=== PATIENT | female | born 1930 | race Caucasian/White ===

== ENCOUNTER 2017-04-26 09:35 | Inpatient (IN) | payer MEDICARE, OTHER ==
[~2017-04-26] VITALS: Ht 149.9 cm; Wt 40.9 kg
[2017-04-26 09:38] VITALS: Ht 149.9 cm; Wt 40.9 kg
[2017-04-26] MEDS ORDERED: SOD CHLORIDE 0.9% 500 ML IV STA (10:03)
[2017-04-26 10:12] LABS: BASOPHILS % 0.2 % (0.0-2.0); HEMATOCRIT 33.2 % (37.0-47.0); HEMOGLOBIN 10.5 g/dl (12.0-16.0); LYMPHOCYTES # 1.9 10^3/ul (0.8-2.9); MEAN CORPUSCULAR HEMOGLOBIN 27.9 pg (29.0-33.0); MEAN CORPUSCULAR HGB CONC 31.6 g/dl (32.0-37.0); MEAN CORPUSCULAR VOLUME 88.3 fl (82.0-101.0); MEAN PLATELET VOLUME 10.8 fl (7.4-10.4); MONOCYTE # 0.4 10^3/ul (0.3-0.9); MONOCYTES % 6.8 % (0.0-11.0); NEUTROPHIL # 4.1 10^3/ul (1.6-7.5); NEUTROPHILS % 63.4 % (39.0-77.0); PLATELET COUNT 178 10^3/UL (140-415); RED BLOOD COUNT 3.76 10^6/ul (4.20-5.40); RED CELL DISTRIBUTION WIDTH 14.6 % (11.5-14.5); WHITE BLOOD COUNT 6.5 10^3/ul (4.8-10.8)
[2017-04-26 10:23] LABS: ALBUMIN 3.7 g/dl (3.3-4.9); ALBUMIN/GLOBULIN RATIO 1.19; BILIRUBIN,INDIRECT 0.2 mg/dl (0-1.1); BILIRUBIN,TOTAL 0.2 mg/dl (0.2-1.3); CALCIUM 9.1 mg/dl (8.4-10.2); CREATININE 0.85 mg/dl (0.44-1.00); POTASSIUM 4.8 mmol/L (3.5-5.1); TOTAL PROTEIN 6.8 g/dl (6.1-8.1)
[2017-04-26 10:33] LABS: ADD UMIC NO; UR ASCORBIC ACID 20 mg/dL (NEGATIVE); UR BILIRUBIN (Dip) NEGATIVE (NEGATIVE); UR BLOOD (Dip) NEGATIVE (NEGATIVE); UR CLARITY CLEAR (CLEAR); UR COLOR STRAW (YELLOW); UR GLUCOSE (Dip) NEGATIVE (NEGATIVE); UR KETONES (Dip) TRACE mg/dL (NEGATIVE); UR LEUKOCYTE ESTERASE (Dip) NEGATIVE Leu/ul (NEGATIVE); UR NITRITE (Dip) NEGATIVE (NEGATIVE); UR SPECIFIC GRAVITY (Dip) 1.011 (1.003-1.030); UR TOTAL PROTEIN (Dip) NEGATIVE (NEGATIVE); UR UROBILINOGEN (Dip) 1+ mg/dL (NEGATIVE)
[2017-04-26] MEDS ORDERED: IOHEXOL 300MG/ML 150 ML BTL ONE (10:37)
[2017-04-26] MEDS ORDERED: SOD CHLORIDE 0.9% 100 ML ONE ×2 (10:37→22:19)
--- NOTE | 2017-04-26 11:46 | RADRPT ---
PROCEDURE: CT abdomen and pelvis with contrast. CLINICAL INDICATION: abdominal pain TECHNIQUE: CT scan of the abdomen and pelvis with contrast was performed on [facility] . The patient was scanned after administration of 90 cc of Omnipaque-300 intravenous contrast. Sagittal and coronal reformatted images were obtained from the axial source images. One or more of the following dose reduction techniques were used: - Automated exposure control. - Adjustment of the mA and/or kV according to patient size. - Use of iterative reconstruction technique. DLP 476.4 mGycm. CTDIvol 9.8 mGy COMPARISON: None. FINDINGS: There is a small to moderate layering left effusion with elevation of the left hemidiaphragm. There is a trace amount of right pleural fluid is present. The heart is mildly enlarged. There is compr essive collapse of the visualized portion of the left lower lobe from pleural fluid and elevated hem idiaphragm. Coronary artery calcifications are seen in the heart. There is hepatomegaly of the liver with no focal lesion or biliary ductal dilatation. The gallbladd er is not seen, and the portal vein is intact without thrombus. The spleen is mildly enlarged. Rounded calcific densities are seen in the area of the splenic artery consistent with splenic artery aneurysms that appear thrombosed including of 14 mm superior focus a nd a 15 mm inferior focus. The adrenal glands are within normal limits without mass. The kidneys e nhance symmetrically bilaterally without hydronephrosis or perinephric stranding. The pancreas is unremarkable without focal lesion or surrounding inflammatory changes. Motion limits fine detail of the bowel. There is laxity of the anterior abdominal wall with pannus formation and there is extension of the small and large bowel anteriorly over the pubic symphysis. There is a fecal filled colon present without evidence of bowel obstruction or visible focal bowel i nflammation. The appendix is not seen. There is no free air or free fluid. There are no enlarged lymph nodes. Diffuse aortic atherosclerosis is seen. There is generalized osteopenia and diffuse degenerative di sease seen involving the lumbar spine. 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 There is loss of the proximal right femur cortex. Numerous vascular calcifications are seen in the uterus which otherwise unremarkable. There is no a dnexal mass. RPTAT: AA IMPRESSION: Cardiomegaly and bilateral pleural effusions are seen slightly larger on the left and there is also elevation of the left hemidiaphragm and this results in collapse of the left lower lobe. Fecal filled colon without obstruction. Hepatosplenomegaly. 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 Right total hip arthroplasty with proximal femoral awais. RPTAT: AA .Karla Ramos MD, Date Time Electronically viewed and signed by .Karla Ramos MD, MD on 04/26/2017 11:46 .J/
[2017-04-26] MEDS ORDERED: CEFEPIME 2GM/50 ML (PMX) 50 ML IVPB STA (12:47)
--- NOTE | 2017-04-26 12:47 | ERA ---
ER Documentation Chief Complaint Date/Time DATE: 04/26/17 TIME: 12:39 Chief Complaint bib family for ap x 3 days , sob and fever HPI This is an 87-year-old female with severe Parkinson's disease leaving her bedridden. The patient is here because she has had 3 days of watery diarrhea. She also has lack of appetite for the past 3-4 days. No fever. The patient has a chronic cough but is nonproductive and mild. Patient has no nausea vomiting no complaints of abdominal pain. The daughter states that she has had some fluid buildup in her lungs in the past. ROS All systems reviewed and are negative except as per history of present illness. Allergies Allergies: Coded Allergies: No Known Allergy (Unverified , 04/19/14) PMhx/Soc History of Surgery: No Anesthesia Reaction: No Hx Neurological Disorder: No Hx Respiratory Disorders: No Hx Cardiac Disorders: Yes (htn) Hx Psychiatric Problems: Yes Hx Miscellaneous Medical Probl: Yes (DEMENTIA,PARKINSONS, dm, arthritis) Hx Alcohol Use: No Hx Substance Use: No Hx Tobacco Use: No Smoking Status: Never smoker FmHx Family History: No coronary disease Physical Exam Vitals Vital Signs Date Time Temp Pulse Resp B/P Pulse Ox O2 Delivery O2 Flow Rate FiO2 04/26/17 10:00 88 18 165/79 96 Nasal Cannula 2.0 04/26/17 09:38 99.7 97 20 161/100 97 Physical Exam Const: [Well-developed, well-nourished] Head: [Atraumatic, normocephalic] Eyes: [Normal Conjunctiva, PERRLA, EOMI, normal sclera, no nystagmus] ENT: [Normal External Ears, Nose and Mouth, moist mucus membranes.] Neck: [Full range of motion. No meningismus, no lymphadenopathy.] Resp: [No increased work of breathing wheezing rhonchi or rales but there is decreased breath sounds at bilateral bases left greater than right] Cardio: [Regular rate and rhythm, no murmurs, S1 S2 present] Abd: [Soft, non tender x 4, non distended. Normal bowel sounds, no guarding or rebound, no pulsitile abdominal masses or bruits] Skin: [No petechiae or rashes, no ecchymosis , no maculopapular rash] Back: [No midline or flank tenderness] Ext: [No cyanosis, or edema, FROM x 4, normal inspection, neurovascularly intact x 4] Neur: [Awake and alert, bilateral hand contractures due to Parkinson's with resting tremors bilaterally STR 5/5 x 4, sensation intact x 4, no focal findings] Psych: Unable to assess patient relatively nonverbal Result Diagram: 04/26/17 0946 04/26/17 0946 Results 24 hrs Laboratory Tests Test 04/26/17 09:46 04/26/17 10:15 White Blood Count 6.510^3/ul Red Blood Count 3.7610^6/ul Hemoglobin 10.5g/dl Hematocrit 33.2% Mean Corpuscular Volume 88.3fl Mean Corpuscular Hemoglobin 27.9pg Mean Corpuscular Hemoglobin Concent 31.6g/dl Red Cell Distribution Width 14.6% Platelet Count 04882^3/UL Mean Platelet Volume 10.8fl Neutrophils % 63.4% Lymphocytes % 29.0% Monocytes % 6.8% Eosinophils % 0.0% Basophils % 0.2% Nucleated Red Blood Cells % 0.0/100WBC Neutrophils # 4.110^3/ul Lymphocytes # 1.910^3/ul Monocytes # 0.410^3/ul Eosinophils # 0.010^3/ul Basophils # 0.010^3/ul Nucleated Red Blood Cells # 0.010^3/ul Sodium Level 141mmol/L Potassium Level 4.8mmol/L Chloride Level 95mmol/L Carbon Dioxide Level 31mmol/L Anion Gap 20 Blood Urea Nitrogen 24mg/dl Creatinine 0.85mg/dl Glucose Level 196mg/dl Calcium Level 9.1mg/dl Total Bilirubin 0.2mg/dl Direct Bilirubin 0.00mg/dl Indirect Bilirubin 0.2mg/dl Aspartate Amino Transf (AST/SGOT) 30IU/L Alanine Aminotransferase (ALT/SGPT) 26IU/L Alkaline Phosphatase 57IU/L Total Protein 6.8g/dl Albumin 3.7g/dl Globulin 3.10g/dl Albumin/Globulin Ratio 1.19 Lipase 37U/L Urine Color STRAW Urine Clarity CLEAR Urine pH 7.0 Urine Specific [place] 1.011 Urine Ketones TRACEmg/dL Urine Nitrite NEGATIVEmg/dL Urine Bilirubin NEGATIVEmg/dL Urine Urobilinogen 1+mg/dL Urine Leukocyte Esterase NEGATIVELeu/ul Urine Hemoglobin NEGATIVEmg/dL Urine Glucose NEGATIVEmg/dL Urine Total Protein NEGATIVEmg/dl Current Medications Medications (Trade) Dose Ordered Sig/Jaxon Route PRN Reason Start Time Stop Time Status Last Admin Dose Admin Sodium Chloride (NS) 500 ml @ 500 mls/hr Q1H STAT IV 04/26/17 10:03 04/26/17 11:02 DC 04/26/17 10:25 IV Flush 10 ml 10 ml STK-MED ONCE .ROUTE 04/26/17 10:37 04/26/17 10:38 DC Sodium Chloride (NS) 100 ml @ ud STK-MED ONCE .ROUTE 04/26/17 10:37 04/26/17 10:38 DC Iohexol 150 ml 150 ml STK-MED ONCE .ROUTE 04/26/17 10:37 04/26/17 10:38 DC Cefepime HCl 50 ml @ 100 mls/hr ONCE STAT IVPB 04/26/17 12:47 04/26/17 13:16 DC 04/26/17 13:34 Vancomycin HCl (Vancocin) 250 ml @ 125 mls/hr ONCE ONCE IVPB 04/26/17 13:00 04/26/17 14:59 Morphine Sulfate (morphine) 4 mg ONCE STAT IV 04/26/17 13:23 04/26/17 13:24 DC 04/26/17 13:34 Ondansetron HCl (Zofran Inj) 4 mg ONCE STAT IV 04/26/17 13:23 04/26/17 13:24 DC 04/26/17 13:34 Procedures/MDM PROCEDURE: CT abdomen and pelvis with contrast. CLINICAL INDICATION: abdominal pain TECHNIQUE: CT scan of the abdomen and pelvis with contrast was performed on a multi-slice CT scanner . The patient was scanned after administration of 90 cc of Omnipaque-300 intravenous contrast. Sagittal and coronal reformatted images were obtained from the axial source images. One or more of the following dose reduction techniques were used: - Automated exposure control. - Adjustment of the mA and/or kV according to patient size. - Use of iterative reconstruction technique. DLP 476.4 mGycm. CTDIvol 9.8 mGy COMPARISON: None. FINDINGS: There is a small to moderate layering left effusion with elevation of the left hemidiaphragm. There is a trace amount of right pleural fluid is present. The heart is mildly enlarged. There is compressive collapse of the visualized portion of the left lower lobe from pleural fluid and elevated hemidiaphragm. Coronary artery calcifications are seen in the heart. There is hepatomegaly of the liver with no focal lesion or biliary ductal dilatation. The gallbladder is not seen, and the portal vein is intact without thrombus. The spleen is mildly enlarged. Rounded calcific densities are seen in the area of the splenic artery consistent with splenic artery aneurysms that appear thrombosed including of 14 mm superior focus and a 15 mm inferior focus. The adrenal glands are within normal limits without mass. The kidneys enhance symmetrically bilaterally without hydronephrosis or perinephric stranding. The pancreas is unremarkable without focal lesion or surrounding inflammatory changes. Motion limits fine detail of the bowel. There is laxity of the anterior abdominal wall with pannus formation and there is extension of the small and large bowel anteriorly over the pubic symphysis. There is a fecal filled colon present without evidence of bowel obstruction or visible focal bowel inflammation. The appendix is not seen. There is no free air or free fluid. There are no enlarged lymph nodes. Diffuse aortic atherosclerosis is seen. There is generalized osteopenia and diffuse degenerative disease seen involving the lumbar spine. 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 There is loss of the proximal right femur cortex. Numerous vascular calcifications are seen in the uterus which otherwise unremarkable. There is no adnexal mass. RPTAT: AA IMPRESSION: Cardiomegaly and bilateral pleural effusions are seen slightly larger on the left and there is also elevation of the left hemidiaphragm and this results in collapse of the left lower lobe. Fecal filled colon without obstruction. Hepatosplenomegaly. 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 Right total hip arthroplasty with proximal femoral awais. RPTAT: AA .Karla Ramos MD, MD Date Time Electronically viewed and signed by .Karla Ramos MD, MD on 04/26/2017 11:46 .J/ CC: LÁZARO KILGORE DO Patient's blood work is relatively unremarkable does have an elevated BUN with some prerenal azotemia. Urinalysis is currently pending. We will place a Rhoades. I will admit the patient for 3 days of diarrhea with some signs of prerenal azotemia plus she has bilateral pleural effusions left greater than right which is causing some left lower lobe collapse Blood and urine cultures have been done as well as C. difficile which are all pending Departure Diagnosis: Primary Impression: Bilateral pleural effusion Additional Impressions: Diarrhea Qualified Code: R19.7 - Diarrhea, unspecified type Anorexia Condition: Stable LÁZARO KILGORE DO Apr 26, 2017 12:47
[2017-04-26] MEDS ORDERED: VANCOMYCIN 1 GM (PMX) 250 ML IVPB ONE (13:00)
[2017-04-26] MEDS ORDERED: morphine 4 MG/ML VIAL IV STA (13:23)
[2017-04-26] MEDS ORDERED: ONDANSETRON 4 MG INJ IV STA (13:23)
--- NOTE | 2017-04-26 13:39 | RADRPT ---
PROCEDURE: Chest x-ray CLINICAL INDICATION: Chest pain TECHNIQUE: Chest single view COMPARISON: None FINDINGS: There is moderate cardiomegaly and an sclerotic aortic calcification. Mild CHF is seen. Question s mall left pleural effusion. Right costophrenic angle sharp. Bones are osteopenic. IMPRESSION: 1. Cardiomegaly with mild CHF and probable small left pleural effusion. 2. Atherosclerotic aortic calcification. 3. Osteopenia. 4. Question old right clavicle fracture RPTAT: HH .Keven Bianchi MD, Date Time Electronically viewed and signed by .Keven Bianchi MD, on 04/26/2017 13:39 .W/
[2017-04-26] MEDS ORDERED: ACETAMINOPHEN 325 MG TAB PO PRN (14:00)
[2017-04-26] MEDS ORDERED: ONDANSETRON 4 MG INJ IV PRN (14:00)
[2017-04-26] MEDS ORDERED: MINERAL OIL 133 ML ENEMA PR ONE (15:30)
[2017-04-26] MEDS ORDERED: FUROSEMIDE 40 MG INJ IV ONE (15:30)
--- NOTE | 2017-04-26 15:30 | RADRPT ---
Echocardiogram Report Patient Name: CAREN MIDDLETON Gender: Female Date: 1930 Study Date: 26-Apr-2017 Change Analyst: Walt Reza [facility] Location: 2255 Ref. Physician: HAMZAH NAZARIO Quality: Adequate Procedures: Transthoracic echocardiogram with complete 2D, M-Mode, and doppler examination. Indications: Concern for CHF. 2D/M Mode Doppler Measurement Value Normal Ranges Measurement Value Normal Ranges LVIDd 2D 4.1 3.5 - 5.6 cm AV Peak [place] 1.6 m/sec LVIDs 2D 2.6 2.1 - 4.1 cm AV Peak PG 10.0 mmHg FS 2D 36.5 % LVOT Peak [place] 1.2 m/sec LVPWd 2D 0.9 0.6 - 1.1 cm LVOT Peak PG 6.0 mmHg IVSd 2D 1.0 0.6 - 1.1 cm MV E Peak [place] 1.6 m/sec IVS/LVPW 2D 1.0 MV A Peak [place] 1.1 m/sec AoR Diam 2D 2.8 2.0 - 3.7 cm MV E/A 1.4 LA/Ao 2D 1 0 - 1 MV Decel Time 144 msec EDV 2D 66.4 cm3 MV E/A 1.4 ESV 2D 17.0 cm3 MR Peak PG 110.0 mmHg LA Dimen 2D 3.3 2.3 - 4.0 cm MR Peak [place] 5.2 m/sec TR Peak [place] 4.1 m/sec TR Peak PG 68.0 mmHg RVSP 76.0 mmHg Findings Left Ventricle: Hyperdynamic left ventricular systolic function. Normal left ventricular cavity size. Normal left ventricular wall thickness. Ejection fraction is visually estimated at 70 %. Tissue Doppler/Mitral Doppler indices are consistent with impaired relaxation (Stage I diastolic dysfunction). Right Ventricle: Normal right ventricular systolic function. Mild enlargement of right ventricle. Left Atrium: The left atrium is normal in size. Right Atrium: The right atrium is normal in size. Mitral Valve: Mild mitral leaflet calcification. Mild mitral annular calcification. Mild to moderate mitral valve regurgitation. Aortic Valve: Aortic sclerosis without stenosis. Aortic valve opens normally. Tricuspid Valve: Normal appearance of the tricuspid valve. Estimated peak PA systolic pressure 76 mmHg. There is mild to moderate tricuspid regurgitation. Pulmonic Valve: Pulmonic valve not well visualized. There is trace pulmonic regurgitation. Pericardium: Left pleural effusion seen. Aorta: Normal aortic root. IVC: Dilated IVC with respiratory collapse consistent with elevated right atrial pressure. Conclusions 1.Hyperdynamic left ventricular systolic function. Normal left ventricular cavity size. Normal left ventricular wall thickness. Ejection fraction is visually estimated at 70 %. Tissue Doppler/Mitral Doppler indices are consistent with impaired relaxation (Stage I diastolic dysfunction). 2.Normal right ventricular systolic function. Mild enlargement of right ventricle. 3.Mild mitral leaflet calcification. Mild mitral annular calcification. Mild to moderate mitral valve regurgitation. 4.Aortic sclerosis without stenosis. Aortic valve opens normally. 5.Normal appearance of the tricuspid valve. Estimated peak PA systolic pressure 76 mmHg. There is mild to moderate tricuspid regurgitation. 6.Severe Pulmonary hypertension. 7.Left pleural effusion seen. Electronically Signed By: Pratik Valencia 26-Apr-2017 15:29:22 -0700 Patient Name: CAREN MIDDLETON Study Date: 26-Apr-2017 [id number]
[2017-04-26 15:50] VITALS: BP 148/61; PULSE 102; RESP 20
--- NOTE | 2017-04-26 15:53 | HP ---
Date/Time of Note Date/Time of Note DATE: 04/26/17 TIME: 15:34 Assessment/Plan VTE Prophylaxis VTE Prophylaxis Intervention: LMWH Lines/Catheters IV Catheter Type [facility]from [facility] Saline Lock Assessment/Plan Chief Complaint/Hosp Course This is an 87-year-old female with unclear medical history but reported hypertension and diabetes who presents with a week history of worsening lethargy , abdominal pain and low p.o. intake. Her exam is notable for profound tremors suggestive of Parkinson's disease. Her echocardiogram shows elevated right- sided pressures and severe pulmonary hypertension. 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, thrombosed: - Unclear if this is cause of abd pain or constipation. - Likely are 2/2 hepatosplenomegaly caused by right sided CHF and congestion of portal system - I've consulted Dr Peters from vascular for management Pleural effusion: - Pneumonia and CHF are both on the differential. Malignancy is less likely - Patient stable, no need for urgent tap. Thoracentesis tomorrow by radiology - CT chest with IV contrast pending - Will give a dose of lasix now given marked IVC dilatation on echo - Will also treat with levaquin for community acquired pneumonia given fever Tremors: - Whole body tremors with rigidity and coghweeling highly suggestive of Parksinons disease - Will start Sinemet - Consult neurology tomorrow in AM Severe pulmonary hypertension on TTE: - CT chest w contrast pending. 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 The patient appears to have cognitive impairment and is unable to provide history. History was thus obtained from her daughter. Whom she lives with. The patient is wheelchair- bound at baseline but is alert and interactive normally. Her daughter has noticed her becoming less interactive. She says her mother has complained of pain in her upper back. She also complains of being hot all the time. She is also noticed that the patient has had very little appetite over this time. She has also noticed that the patient has had total body shaking from her head to her hands. PMH/Family/Social Past Medical History Medical History: no pertinent history Past Surgical History Past Surgical Hx: noncontributory Family History Significant Family History: no pertinent family hx Social History Lives at home with her daughter She is wheelchair bound at baseline Alcohol Use: none Smoking Status: Never smoker Drug Use: none Exam/Review of Systems Vital Signs Vitals Vital Signs Date Time Temp Pulse Resp B/P Pulse Ox O2 Delivery O2 Flow Rate FiO2 04/26/17 14:20 100 17 158/70 100 Nasal Cannula 4.0 04/26/17 09:38 99.7 Exam Exam Tmax 100.9 The patient is an elderly female laying in bed appearing somewhat uncomfortable. Alert, faint voice, unable to understand her She has notable tremors from her head to her bilateral arms. Her arms are rigid and contracted to the fingers. She has cogwheeling of her arms bilaterally Her jugular venous pressure is quite elevated to her ear. Her heart sounds are tachycardic and regular. There is no murmur. Her lungs are relatively clear anteriorly. Her abdomen is slightly distended it is soft and nontender. There is no rebound and no guarding. Her legs are without edema and appears somewhat atrophied Laboratory Tests Test 04/26/17 09:46 04/26/17 10:15 White Blood Count 6.510^3/ul Red Blood Count 3.7610^6/ul Hemoglobin 10.5g/dl Hematocrit 33.2% Mean Corpuscular Volume 88.3fl Mean Corpuscular Hemoglobin 27.9pg Mean Corpuscular Hemoglobin Concent 31.6g/dl Red Cell Distribution Width 14.6% Platelet Count 03266^3/UL Mean Platelet Volume 10.8fl Neutrophils % 63.4% Lymphocytes % 29.0% Monocytes % 6.8% Eosinophils % 0.0% Basophils % 0.2% Nucleated Red Blood Cells % 0.0/100WBC Neutrophils # 4.110^3/ul Lymphocytes # 1.910^3/ul Monocytes # 0.410^3/ul Eosinophils # 0.010^3/ul Basophils # 0.010^3/ul Nucleated Red Blood Cells # 0.010^3/ul Sodium Level 141mmol/L Potassium Level 4.8mmol/L Chloride Level 95mmol/L Carbon Dioxide Level 31mmol/L Anion Gap 20 Blood Urea Nitrogen 24mg/dl Creatinine 0.85mg/dl Glucose Level 196mg/dl Calcium Level 9.1mg/dl Total Bilirubin 0.2mg/dl Direct Bilirubin 0.00mg/dl Indirect Bilirubin 0.2mg/dl Aspartate Amino Transf (AST/SGOT) 30IU/L Alanine Aminotransferase (ALT/SGPT) 26IU/L Alkaline Phosphatase 57IU/L B-Type Natriuretic Peptide 1400PG/ML Total Protein 6.8g/dl Albumin 3.7g/dl Globulin 3.10g/dl Albumin/Globulin Ratio 1.19 Lipase 37U/L Urine Color STRAW Urine Clarity CLEAR Urine pH 7.0 Urine Specific [place] 1.011 Urine Ketones TRACEmg/dL Urine Nitrite NEGATIVEmg/dL Urine Bilirubin NEGATIVEmg/dL Urine Urobilinogen 1+mg/dL Urine Leukocyte Esterase NEGATIVELeu/ul Urine Hemoglobin NEGATIVEmg/dL Urine Glucose NEGATIVEmg/dL Urine Total Protein NEGATIVEmg/dl Current Medications Medications (Trade) Dose Ordered Sig/Jaxon Route PRN Reason Start Time Stop Time Status Last Admin Dose Admin Sodium Chloride (NS) 500 ml @ 500 mls/hr Q1H STAT IV 04/26/17 10:03 04/26/17 11:02 DC 04/26/17 10:25 500 MLS/HR IV Flush 10 ml 10 ml STK-MED ONCE .ROUTE 04/26/17 10:37 04/26/17 10:38 DC Sodium Chloride (NS) 100 ml @ ud STK-MED ONCE .ROUTE 04/26/17 10:37 04/26/17 10:38 DC Iohexol 150 ml 150 ml STK-MED ONCE .ROUTE 04/26/17 10:37 04/26/17 10:38 DC Cefepime HCl 50 ml @ 100 mls/hr ONCE STAT IVPB 04/26/17 12:47 04/26/17 15:08 DC 04/26/17 13:34 100 MLS/HR Vancomycin HCl (Vancocin) 250 ml @ 125 mls/hr ONCE ONCE IVPB 04/26/17 13:00 04/26/17 15:08 DC 04/26/17 14:19 125 MLS/HR Morphine Sulfate (morphine) 4 mg ONCE STAT IV 04/26/17 13:23 04/26/17 13:24 DC 04/26/17 13:34 4 MG Ondansetron HCl (Zofran Inj) 4 mg ONCE STAT IV 04/26/17 13:23 04/26/17 13:24 DC 04/26/17 13:34 4 MG Ondansetron HCl (Zofran Inj) 4 mg BRIDGE ORDER PRN IV NAUSEA AND/OR VOMITING 04/26/17 14:00 04/27/17 13:59 Acetaminophen (Tylenol Tab) 650 mg ER BRIDGE PRN PO MILD PAIN/FEVER 04/26/17 14:00 04/27/17 13:59 Furosemide (Lasix) 40 mg ONCE ONCE IV 04/26/17 15:30 04/26/17 15:31 DC 04/26/17 15:16 40 MG Mineral Oil (Fleet Mineral Oil Enema) 133 ml ONCE ONCE ID 04/26/17 15:30 04/26/17 15:31 DC Carbidopa/Levodopa (Sinemet (25/ 100)) 1 tab QID PO 04/26/17 15:30 Polyethylene Glycol (Miralax) 17 gm BID GTB 04/26/17 21:00 Senna 5 ml 5 ml BID PO 04/26/17 21:00 Levofloxacin/ Dextrose 150 ml @ 100 mls/hr Q24H IVPB 04/26/17 16:00 04/26/17 21:00 Levofloxacin/ Dextrose (Levaquin 500mg/ D5W 100 ml (Pmx)) 100 ml @ 100 mls/hr Q24H IVPB 04/27/17 16:00 Labs Result Diagram: 04/26/17 0946 04/26/17 0946 Medications Medications Current Medications Carbidopa/Levodopa (Sinemet (25/ 100)) 1 tab QID PO ; Start 04/26/17 at 15:30 Polyethylene Glycol (Miralax) 17 gm BID GTB ; Start 04/26/17 at 21:00 Senna 5 ml 5 ml BID PO ; Start 04/26/17 at 21:00 Levofloxacin/ Dextrose 150 ml @ 100 mls/hr Q24H IVPB ; Start 04/26/17 at 16:00 ; Stop 04/26/17 at 21:00 Levofloxacin/ Dextrose (Levaquin 500mg/ D5W 100 ml (Pmx)) 100 ml @ 100 mls/hr Q24H IVPB ; Start 04/27/17 at 16:00 HAMZAH NAZARIO MD Apr 26, 2017 15:46
[2017-04-26] MEDS ORDERED: LEVOFLOXACIN 750MG/D5W (PMX) 150 ML IVPB SCH (16:00)
[2017-04-26] MEDS: CARBIDOPA/LEVODOPA (25/100) TAB PO SCH ×3 (16:16→20:28)
[2017-04-26] MEDS: POLYETHYLENE GLYCOL 17 GM PACKET GTB SCH (20:27)
[2017-04-26 20:47] VITALS: BP 156/82; RESP 18
[2017-04-26] MEDS ORDERED: SENNA (PO SYG) PO SCH (21:00)
[2017-04-26] MEDS: LORAZEPAM 0.5 MG TAB PO PRN (21:16)
[2017-04-26 22:00] VITALS: BP 144/68
[2017-04-26] MEDS ORDERED: IODIXANOL LOCM 100 ML BTL ONE (22:19)
[2017-04-26] MEDS: ENOXAPARIN 30 MG/0.3 ML SYG SC SCH (22:59)
--- NOTE | 2017-04-26 23:19 | RADRPT ---
AMENDMENT: 05/16/2017 9:29:27 PM Shannon Morales M.D TECHNIQUE: CT pulmonary angiogram of the chest was performed. Sagittal and coronal re-formations were construc brandy from the axial acquisition images. 3-D post processing was performed and maximum intensity proj ection images were reconstructed on PACS. Image acquisition by series (and radiation doses in CTDIvol): 7, 35 and 7.8 mGy) Estimated cumulative dose or total frmy-iycxlk-pwwrcbw (DLP) is: 270 mGy-cm. Intravenous Contrast Medium Administered: 100 of Visipaque 320 One or more of the following dose reduction techniques were used: - Automated exposure control. - Adjustment of the mA and/or kV according to patient size. - Use of iterative reconstruction technique. PROCEDURE: CT ANGIOGRAM CHEST, PULMONARY EMBOLISM PROTOCOL: CLINICAL INDICATION: 87 years of age, female , pulmonary hypertension and pleural effusion. Con cern for PE.. COMPARISON: None TECHNIQUE: Image acquisition by series (and radiation doses in CTDIvol): mGy) Estimated cumulative dose or total ieqd-miexcb-ypqttjv (DLP) is: mGy-cm. Intravenous Contrast Medium Administered: mL of contrast. Cardiac Gating: None. FINDINGS: CARDIOVASCULAR: Diagnostic quality: Contrast opacification of the pulmonary arterial circulation is adequate for ass essment of pulmonary embolism. Study is not significantly limited by respiratory motion artifact. Pulmonary arteries: No filling defects to suggest pulmonary embolism to the level of the subsegmenta l branches of the pulmonary arteries. Not enlarged. Heart: No interventricular septal deviation. Normal in size. Coronary artery calcification greatest along LAD. No significant valvular calcification. Pericardium: No pericardial effusion. Thoracic aorta: Atherosclerosis aorta. No aneurysm. w Normal cervical branching. REMAINING CHEST: Medical devices: None. Thyroid: Normal. Lymph nodes: No supraclavicular, axillary, mediastinal, or hilar lymphadenopathy. Other mediastinal structures: Limited evaluation of the lower neck demonstrates for tortuous carotid arteries with retropharyngeal common carotid arteries. Lung parenchyma: Bilateral dependent atelectasis greater on the left. Airways: No significant abnormality. Pleura: Moderate low attenuation left pleural effusion. Trace right pleural fluid. Chest wall: No significant abnormality. 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 Musculoskeletal: Osteopenia. Old healed fracture deformity right clavicle. 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 There is partial collapse of the upper thoracic vertebra from an old o steoporotic compression fracture. There is mild height loss involving many mid thoracic vertebra. N o acute bony abnormality. IMPRESSION: Negative for evidence of acute PE. Coronary artery calcification and thoracic aorta atherosclerosis. Negative for evidence of acute ao rtic syndrome. Moderate left pleural effusion and trace right pleural effusion with bilateral dependent atelectasis greater on the left. Osteoporosis with old healed fracture deformity right clavicle and old compression fracture in the t horacic spine. RPTAT: HCTS Physician Al Date Time Electronically viewed and signed by Oscar Morales Physician on 05/16/2017 21:30 CS/
[2017-04-27] MEDS: ZOLPIDEM 5 MG TAB PO PRN ×2 (03:13→23:21)
[2017-04-27 03:46] VITALS: BP 150/64; RESP 18
[2017-04-27 06:01] LABS: BASOPHILS % 0.2 % (0.0-2.0); HEMOGLOBIN 10.4 g/dl (12.0-16.0); LYMPHOCYTES # 1.8 10^3/ul (0.8-2.9); LYMPHOCYTES % 28.5 % (15.0-51.0); MEAN CORPUSCULAR HEMOGLOBIN 27.9 pg (29.0-33.0); MEAN CORPUSCULAR HGB CONC 31.5 g/dl (32.0-37.0); MEAN CORPUSCULAR VOLUME 88.5 fl (82.0-101.0); MEAN PLATELET VOLUME 10.1 fl (7.4-10.4); MONOCYTE # 0.5 10^3/ul (0.3-0.9); NEUTROPHILS % 62.8 % (39.0-77.0); PLATELET COUNT 200 10^3/UL (140-415); RED BLOOD COUNT 3.73 10^6/ul (4.20-5.40); RED CELL DISTRIBUTION WIDTH 14.1 % (11.5-14.5); WHITE BLOOD COUNT 6.3 10^3/ul (4.8-10.8)
[2017-04-27 06:04] LABS: ADD UMIC NO; UR ASCORBIC ACID NEGATIVE (NEGATIVE); UR BILIRUBIN (Dip) NEGATIVE (NEGATIVE); UR BLOOD (Dip) NEGATIVE (NEGATIVE); UR CLARITY CLEAR (CLEAR); UR COLOR YELLOW (YELLOW); UR GLUCOSE (Dip) NEGATIVE (NEGATIVE); UR KETONES (Dip) TRACE mg/dL (NEGATIVE); UR LEUKOCYTE ESTERASE (Dip) NEGATIVE Leu/ul (NEGATIVE); UR NITRITE (Dip) NEGATIVE (NEGATIVE); UR SPECIFIC GRAVITY (Dip) 1.041 (1.003-1.030); UR TOTAL PROTEIN (Dip) NEGATIVE (NEGATIVE); UR UROBILINOGEN (Dip) NEGATIVE (NEGATIVE)
[2017-04-27 06:20] LABS: IRON 44 ug/dl (35-150)
[2017-04-27 06:27] LABS: ALBUMIN 3.8 g/dl (3.3-4.9); BILIRUBIN,INDIRECT 0.3 mg/dl (0-1.1); BILIRUBIN,TOTAL 0.3 mg/dl (0.2-1.3); CREATININE 0.74 mg/dl (0.44-1.00); POTASSIUM 3.9 mmol/L (3.5-5.1); TOTAL PROTEIN 6.8 g/dl (6.1-8.1)
[2017-04-27 06:28] LABS: ALBUMIN/GLOBULIN RATIO 1.26
[2017-04-27 06:30] LABS: TOTAL IRON BINDING CAPACITY 282 ug/dl (241-421)
[2017-04-27 08:14] VITALS: BP 104/55; RESP 19
[2017-04-27] MEDS: ENOXAPARIN 30 MG/0.3 ML SYG SC SCH (08:33)
[2017-04-27] MEDS: CARBIDOPA/LEVODOPA (25/100) TAB PO SCH ×3 (08:48→22:36)
[2017-04-27] MEDS: ACETAMINOPHEN 325 MG TAB PO PRN ×4 (08:49→23:21)
[2017-04-27] MEDS: POLYETHYLENE GLYCOL 17 GM PACKET GTB SCH ×2 (08:58→22:35)
[2017-04-27] MEDS: SENNA (PO SYG) PO SCH ×2 (08:58→21:00)
[2017-04-27 09:05] LABS: INR 1.17; PT RATIO 1.2
--- NOTE | 2017-04-27 09:38 | PN ---
Date/Time of Note Date/Time of Note DATE: 04/27/17 TIME: 09:38 Assessment/Plan VTE Prophylaxis VTE Prophylaxis Intervention: SCD's Lines/Catheters IV C[facility]ter Type [facility]from [facility] Saline Lock Urinary Cath still in place: No Assessment/Plan Chief Complaint/Hosp Course 1. Abdominal pain, most likely constipation related. -Continue stool softeners and laxatives. 2. Possible early onset of Parkinson's disease. -Patient was already started on Sinemet. Neurology consult called and will follow recommendation on dosage. 3. Left-sided pleural effusion, moderate on CT. Patient is asymptomatic. -For ultrasound-guided thoracentesis. Will consider pulmonary if indicated. -Patient has been given Lasix and on empiric antibiotic for pneumonia prophylaxis. 4. 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 -Vascular consultation has been called and we will follow recommendation. 5. Severe pulmonary hypertension on TTE: Symptomatic. -We will consider treating with low-dose diuretics. 6. Anemia likely chronic. H&H stable. Will monitor. Plan: Follow-up with mentation from neurology and vascular. Continue treating constipation. Continue patient on a soft diet. If no further inpatient workup indicated for #4 and #2, consider discharge planning. Of note, I discussed with patient's family regarding [facility] facility placement which family refused. Case discussed with Problems: Subjective 24 Hr Interval Summary Free Text/Dictation Patient found in bed awake. Having generalized body tremors. Patient has been started on diet and is tolerating well. There is no further nausea or vomiting. Exam/Review of Systems Vital Signs Vitals Vital Signs Date Time Temp Pulse Resp B/P Pulse Ox O2 Delivery O2 Flow Rate FiO2 04/27/17 08:14 100.8 93 19 104/55 96 04/26/17 20:00 Nasal Cannula 3.0 Intake and Output 04/26/17 04/26/17 04/27/17 15:00 23:00 07:00 Intake Total 50 ml 325 ml 50 ml Balance 50 ml 325 ml 50 ml Exam General: Frail looking elderly female , not in any acute distress . HEENT: Normocephalic, Atraumatic, No laceration or hematoma; Eyes: PEERL, Conjunctiva clear, Anicteric sclera Neck: Supple without any lymphadenopathy, nontender, no JVD, no carotid bruits, trachea midline, no thyromegaly Cardiac: S1, S2 auscultated, regular rhythm and rate, no mumurs or gallop Pulmonary: Normal respiratory effort. Chest clear to auscultation bilaterally, no adventitious breath sounds GI: Abdomen normal to inspection. Soft, non tender, non- distended, no masses, no rebound tenderness or guarding. Bowel sounds active on all four quadrants Genitourinary: Deferred Extremities: With tremors mostly on fingers. +Rigidity. no cyanosis, clubbing , or edema. Pulses [2+] bilaterally. Full ROM on all four extremities. No focal weakness appreciated. Neurologic:Awake/Oriented 2. With dysarthria. intact sensation. Skin: Clean,dry, and intact. No ecchymosis, no rashes, or lesions Results Result Diagram: 04/27/17 0529 04/27/17 0529 Results 24 hrs Laboratory Tests Test 04/26/17 09:46 04/26/17 10:15 04/27/17 04:30 04/27/17 05:29 White Blood Count 6.5 6.3 Red Blood Count 3.76 L 3.73 L Hemoglobin 10.5 L 10.4 L Hematocrit 33.2 L 33.0 L Mean Corpuscular Volume 88.3 88.5 Mean Corpuscular Hemoglobin 27.9 L 27.9 L Mean Corpuscular Hemoglobin Concent 31.6 L 31.5 L Red Cell Distribution Width 14.6 H 14.1 Platelet Count 178 200 Mean Platelet Volume 10.8 H 10.1 Neutrophils % 63.4 62.8 Lymphocytes % 29.0 28.5 Monocytes % 6.8 8.0 Eosinophils % 0.0 0.0 Basophils % 0.2 0.2 Nucleated Red Blood Cells % 0.0 0.0 Neutrophils # 4.1 4.0 Lymphocytes # 1.9 1.8 Monocytes # 0.4 0.5 Eosinophils # 0.0 0.0 Basophils # 0.0 0.0 Nucleated Red Blood Cells # 0.0 0.0 Sodium Level 141 136 Potassium Level 4.8 3.9 Chloride Level 95 L 93 L Carbon Dioxide Level 31 31 Anion Gap 20 H 16 Blood Urea Nitrogen 24 H 18 Creatinine 0.85 0.74 Glucose Level 196 121 # Calcium Level 9.1 9.0 Total Bilirubin 0.2 0.3 Direct Bilirubin 0.00 0.00 Indirect Bilirubin 0.2 0.3 Aspartate Amino Transf (AST/SGOT) 30 31 Alanine Aminotransferase (ALT/SGPT) 26 19 Alkaline Phosphatase 57 54 B-Type Natriuretic Peptide 1400 H Total Protein 6.8 6.8 Albumin 3.7 3.8 Globulin 3.10 3.00 Albumin/Globulin Ratio 1.19 1.26 Lipase 37 Urine Color STRAW YELLOW Urine Clarity CLEAR CLEAR Urine pH 7.0 5.0 Urine Specific [place] 1.011 1.041 H Urine Ketones TRACE A TRACE A Urine Nitrite NEGATIVE NEGATIVE Urine Bilirubin NEGATIVE NEGATIVE Urine Urobilinogen 1+ H NEGATIVE Urine Leukocyte Esterase NEGATIVE NEGATIVE Urine Hemoglobin NEGATIVE NEGATIVE Urine Glucose NEGATIVE NEGATIVE Urine Total Protein NEGATIVE NEGATIVE Iron Level 44 Total Iron Binding Capacity 282 Percent Iron Saturation 16 L Ferritin 60.6 Thyroid Stimulating Hormone (TSH) 1.620 Test 04/27/17 08:22 Prothrombin Time 15.0 H Prothrombin Time Ratio 1.2 INR International Normalized Ratio 1.17 Medications Medications Current Medications Carbidopa/Levodopa (Sinemet (25/ 100)) 1 tab QID PO Last administered on 08:48; Admin Dose 1 TAB; Start 04/26/17 at 15:30 Polyethylene Glycol 17 gm 17 gm BID GTB Last administered on 04/26/17 20:27; Admin Dose 17 GM; Start 04/26/17 at 21:00 Levofloxacin/ Dextrose (Levaquin 500mg/ D5W 100 ml (Pmx)) 100 ml @ 100 mls/hr Q24H IVPB ; Start 04/27/17 at 16:00 Enoxaparin Sodium (Lovenox) 30 mg DAILY SC Last administered on 04/26/17 22:59 ; Admin Dose 30 MG; Start 04/26/17 at 16:00 Lorazepam (Ativan) 0.5 mg Q8H PRN PO ANXIETY Last administered on 04/26/17 21: 16; Admin Dose 0.5 MG; Start 04/26/17 at 21:00 Senna (Senokot (Ped)) 5 ml BID PO ; Start 04/27/17 at 09:00 Zolpidem Tartrate (Ambien) 5 mg HS PRN PO INSOMNIA Last administered on 03:13; Admin Dose 5 MG; Start 04/27/17 at 03:00 Acetaminophen (Tylenol Tab) 650 mg Q4H PRN PO PAIN AND OR ELEVATED TEMP Last administered on 04/27/17t 08:49; Admin Dose 650 MG; Start 04/27/17 at 08:30 DANIEL SILVEIRA NP Apr 27, 2017 09:38 DANIEL SILVEIRA NP Apr 27, 2017 09:38
[2017-04-27 11:00] VITALS: PULSE 88
--- NOTE | 2017-04-27 11:00 | HP ---
DATE OF ADMISSION: 04/26/2017 HISTORY OF PRESENT ILLNESS: Ms. Au is an 87-year-old female with presentation of worsening lethargy, abdominal pain, and shortness of breath. Upon evaluation, it was identified the patient was having elevated right-sided pressures and severe pulmonary hypertension, with left-sided pleural effusion in which she was admitted to [facility] for further evaluation. During her evaluation, she also underwent CT of the abdomen and pelvis secondary to her abdominal pain in which the findings had suggested calcified and partially thrombosed splenic artery aneurysms that were in two separate segments, measuring 1.4 cm and 1.[address] cm respectively. Upon her CT of her chest, it was identified the patient having moderate left pleural effusion and some on her right side as well. At the moment, the family is at the bedside and answering most of her questions. She denies lower extremity rest pain or abdominal pain at the moment. However, she does have some difficulty breathing and shortness of breath. REVIEW OF SYSTEMS: Fourteen-point review performed and negative except what was mentioned in HPI. PAST MEDICAL HISTORY: Entails diabetes, hypertension, Parkinson's, wheelchair bound, congestive heart failure of unspecified type, pulmonary hypertension. SURGICAL HISTORY: None reported. FAMILY HISTORY: Positive for coronary artery disease and diabetes. SOCIAL HISTORY: Denies tobacco, alcohol or illicit drug use. PHYSICAL EXAMINATION: GENERAL: The patient is awake, not very communicative at this time. HEENT: Normocephalic, atraumatic. Mucosa moist. NECK: Supple. No carotid bruit. LUNGS: Crackles at the bases. Good airway entry. CARDIOVASCULAR: S1, S2 present. No murmurs. ABDOMEN: Soft, nontender, nondistended. Bowel sounds positive. The patient does not have significant abdominal integrity. EXTREMITIES: Lower extremities reveal palpable femoral pulse. Nonpalpable pedal pulse. Motor and sensory intact. Capillary refill 3 to 4 seconds. ASSESSMENT AND PLAN: 1. Splenic artery aneurysm: It seems the patient has incidental finding of splenic artery aneurysm that is less likely contributing to her abdominal pain. There was some suggestion of constipation. Would recommend for GI for further evaluation. From a vascular surgery standpoint, we will continue to monitor her aneurysm finding as an outpatient. No immediate intervention at this time. Usual intervention size about 2 cm. 2. Optimize vascular status (diet, nutrition, exercise, sugar control, antiplatelets). Discussed findings, plan and management with the patient and the daughter at the bedside with certified fly maker and they understand. Thank you for allowing us to partake in the care of your patient. Please call with any questions. Dictated By: Paul Peters MD /lexis/nigel /Document#: [id number]
--- NOTE | 2017-04-27 12:52 | CONS ---
Date/Time of Note Date/Time of Note DATE: 04/27/17 TIME: 12:39 Assessment/Plan Assessment/Plan Chief Complaint/Hosp Course 87 year old female admitted with SOB, abdominal pain, pleural effusion with diffuse tremors, cogwheeling, constipation likely with advanced Parkinson's started on Sinemet. Recommendations: reduce frequency of Sinemet to 25/100 TID ( starting dose ) avoid any anti-emetics that may block dopamine receptors and worsen PD symptoms (generally Reglan, Prochloroperazine, Promethazine) may worsen symptoms avoid medications such as Haldol may obtain baseline Head CT to evaluate for chronic ischemic changes she will require close outpatient neurology follow up upon discharge to further adjust medications Problems: Consultation Date/Type/Reason Admit Date/Time Apr 26, 2017 at 13:44 Date of Consultation: Apr 27, 2017 Type of Consultation: Neurology Reason for Consultation Parkinson's Disease Referring Provider: DANIEL SILVEIRA NP Hx of Present Illness 87 yo female admitted with lethargy, abdominal pain and SOB diagnosed with left sided pleural effusion elevated [employer] and partially thrombosed splenic artery aneurysms being evaluated by vascular surgery. Neurology consulted for history of Parkinson's disease. Aide is at bedside unable to provide further history however able to display all patient's pill bottles from home and is not currently being treated with any Parkinson's medications. On admission she was noted to have diffuse resting tremor and cogwheeling , constipation and empirically started on Sinemet. Past Medical History Medical History: no pertinent history Past Surgical History Past Surgical Hx: noncontributory Social History Alcohol Use: none Smoking Status: Never smoker Drug Use: none Exam/Review of Systems Vital Signs Vitals Vital Signs Date Time Temp Pulse Resp B/P Pulse Ox O2 Delivery O2 Flow Rate FiO2 04/27/17 11:00 98.9 88 04/27/17 08:14 19 104/55 96 04/26/17 20:00 Nasal Cannula 3.0 Intake and Output 04/26/17 04/26/17 04/27/17 15:00 23:00 07:00 Intake Total 50 ml 325 ml 50 ml Balance 50 ml 325 ml 50 ml Exam awake and alert oriented to name and hospital speech with severe tachyphemia and dysarthria difficult to comprehend CN: MARIA LUISA, gaze in both directions no neglect no facial asymmetry Motor: diffuse tremors at rest in all extremities, cogwheeling with contracted right arm no obvious focal weakness Reflexes 2+ throughout downgoing toes Coordination poor cooperation Results Result Diagram: 04/27/17 0529 04/27/17 0529 Results 24 hrs Laboratory Tests Test 04/27/17 04:30 04/27/17 05:29 04/27/17 08:22 Urine Color YELLOW Urine Clarity CLEAR Urine pH 5.0 Urine Specific [place] 1.041 H Urine Ketones TRACE A Urine Nitrite NEGATIVE Urine Bilirubin NEGATIVE Urine Urobilinogen NEGATIVE Urine Leukocyte Esterase NEGATIVE Urine Hemoglobin NEGATIVE Urine Glucose NEGATIVE Urine Total Protein NEGATIVE White Blood Count 6.3 Red Blood Count 3.73 L Hemoglobin 10.4 L Hematocrit 33.0 L Mean Corpuscular Volume 88.5 Mean Corpuscular Hemoglobin 27.9 L Mean Corpuscular Hemoglobin Concent 31.5 L Red Cell Distribution Width 14.1 Platelet Count 200 Mean Platelet Volume 10.1 Neutrophils % 62.8 Lymphocytes % 28.5 Monocytes % 8.0 Eosinophils % 0.0 Basophils % 0.2 Nucleated Red Blood Cells % 0.0 Neutrophils # 4.0 Lymphocytes # 1.8 Monocytes # 0.5 Eosinophils # 0.0 Basophils # 0.0 Nucleated Red Blood Cells # 0.0 Sodium Level 136 Potassium Level 3.9 Chloride Level 93 L Carbon Dioxide Level 31 Anion Gap 16 Blood Urea Nitrogen 18 Creatinine 0.74 Glucose Level 121 # Calcium Level 9.0 Iron Level 44 Total Iron Binding Capacity 282 Percent Iron Saturation 16 L Ferritin 60.6 Total Bilirubin 0.3 Direct Bilirubin 0.00 Indirect Bilirubin 0.3 Aspartate Amino Transf (AST/SGOT) 31 Alanine Aminotransferase (ALT/SGPT) 19 Alkaline Phosphatase 54 Total Protein 6.8 Albumin 3.8 Globulin 3.00 Albumin/Globulin Ratio 1.26 Thyroid Stimulating Hormone (TSH) 1.620 Prothrombin Time 15.0 H Prothrombin Time Ratio 1.2 INR International Normalized Ratio 1.17 Medications Medications Current Medications Carbidopa/Levodopa (Sinemet (25/ 100)) 1 tab QID PO Last administered on 08:48; Admin Dose 1 TAB; Start 04/26/17 at 15:30 Polyethylene Glycol 17 gm 17 gm BID GTB Last administered on 04/26/17 20:27; Admin Dose 17 GM; Start 04/26/17 at 21:00 Levofloxacin/ Dextrose (Levaquin 500mg/ D5W 100 ml (Pmx)) 100 ml @ 100 mls/hr Q24H IVPB ; Start 04/27/17 at 16:00 Enoxaparin Sodium (Lovenox) 30 mg DAILY SC Last administered on 04/26/17 22:59 ; Admin Dose 30 MG; Start 04/26/17 at 16:00 Lorazepam (Ativan) 0.5 mg Q8H PRN PO ANXIETY Last administered on 04/26/17 21: 16; Admin Dose 0.5 MG; Start 04/26/17 at 21:00 Senna (Senokot (Ped)) 5 ml BID PO ; Start 04/27/17 at 09:00 Zolpidem Tartrate (Ambien) 5 mg HS PRN PO INSOMNIA Last administered on 03:13; Admin Dose 5 MG; Start 04/27/17 at 03:00 Acetaminophen (Tylenol Tab) 650 mg Q4H PRN PO PAIN AND OR ELEVATED TEMP Last administered on 04/27/17 08:49; Admin Dose 650 MG; Start 04/27/17 at 08:30 J CARLOS JEAN-BAPTISTE MD Apr 27, 2017 12:52
[2017-04-27] MEDS: ONDANSETRON 4 MG INJ IV PRN (13:12)
[2017-04-27] MEDS ORDERED: LIDOCAINE 1% (MPF) 5 ML VIAL ONE (13:59)
[2017-04-27] MEDS ORDERED: NA PHOSPHATE/BIPHOS 133 ML ENEMA PR ONE (14:30)
--- NOTE | 2017-04-27 14:55 | RADRPT ---
PROCEDURE: Ultrasound guided thoracentesis CLINICAL INDICATION: Pleural fluid TECHNIQUE: Multiple sonographic images were obtained through the patient's chest. A site in the p patricia's left lower chest was selected and marked. The area was prepped and draped in the usual ster ile fashion. 1% lidocaine was utilized. A 19-gauge Yueh needle was advanced into the pleural space and the introducer was connected to a vacuum drainage system. A total of 440 cc of clear yellow flu id were drained at the end of the procedure. The patient tolerated the procedure well. The specimen was sent for laboratory evaluation. RPTAT: AA COMPARISON: None FINDINGS: Pleural effusion. RPTAT: AA IMPRESSION: Uncomplicated ultrasound-guided left thoracentesis. Physician Naresh Date Time Electronically viewed and signed by Physician Naresh on 04/27/2017 14:55 /
[2017-04-27 14:58] VITALS: BP 159/74; RESP 20
--- NOTE | 2017-04-27 14:59 | RADRPT ---
PROCEDURE: XR Chest. CLINICAL INDICATION: POST THORACENTESIS TECHNIQUE: Single frontal view of the chest was obtained. COMPARISON: Chest x-ray from 04/26/2017 FINDINGS: The heart and mediastinum are within normal limits. The aortic arch is calcified. There is a small left pleural effusion which has decreased since the prior chest x-ray from 04/26/20 17. There is decreased pulmonary vascular congestion. There is stable prominence of interstitial markings, likely due to chronic / senescent changes. There is no pneumothorax. IMPRESSION: Status post interval left thoracentesis with small residual left pleural fluid and no pneumothorax. Improved pulmonary vascular congestion. RPTAT: EE Physician Naresh Date Time Electronically viewed and signed by Paul Willard Physician on 04/27/2017 14:59 /
[2017-04-27] MEDS ORDERED: LEVOFLOXACIN 500MG/D5W (PMX) 100 ML IVPB SCH (16:00)
[2017-04-27 18:22] LABS: FLD MN% 97.3 %; FLD PMN% 2.7 %; FLD RBC 0 /uL; FLD WBC 961 /cmm
[2017-04-27 18:39] LABS: FLD CLARITY CLEAR; FLD COLOR YELLOW; FLD TYPE THORACENTHESIS
--- NOTE | 2017-04-27 18:40 | RADRPT ---
PROCEDURE: CT Brain without. CLINICAL INDICATION: Parkinson's, evaluate for chronic basal ganglia infarct. TECHNIQUE: A CT of the brain was performed on multidetector high-resolution CT scanner utilizing a xial sections from the skull base through the vertex without contrast. The scan was reviewed in sof t tissue brain and high frequency resolution bone algorithm windows. Images were reviewed on a high -resolution PACS workstation. One or more the following does reduction techniques were utilized: Aut omated exposure control, adjustment of the mA/ or kV according to patient's size, or use of iterativ e reconstruction technique. The exam CTDI = 43.11 mGy and the DLP = 839.8 mGy-cm. COMPARISON: Brain CT . FINDINGS: The ventricles and sulci are mildly prominent indicative of volume loss. There is no intracranial h emorrhage, mass effect or midline shift. No abnormal intra-axial or extra-axial fluid collections a re seen. The balderas/white matter differentiation is preserved. There are mild scattered foci of hypoattenuation in the white matter, which are nonspecific in etiol ogy but likely reflect chronic small vessel ischemic changes. Tiny hypodense foci are noted in bilat eral lentiform nuclei which likely represent dilated perivascular spaces versus old lacunar infarcts . There are mild intracranial vascular calcifications consistent with atherosclerosis. The visualize d paranasal sinuses are essentially clear. IMPRESSION: 1. No acute intracranial hemorrhage, transcortical infarction or mass effect. 2. Mild intracranial atherosclerosis and chronic small vessel ischemic changes. 3. Tiny hypodense foci are noted in bilateral lentiform nuclei which likely represent dilated periv ascular spaces versus old lacunar infarcts. 4. Mild generalized cerebral volume loss. RPTAT: QQ .Geovani Moran MD, MD Date Time Electronically viewed and signed by .Geovani Moran MD, MD on 04/27/2017 18:39 .N/
[2017-04-27 18:46] LABS: FLUID GLUCOSE 173 mg/dl
[2017-04-27 18:47] LABS: FLUID LD 186 U/L; FLUID TYPE THORACENTESIS FLUID
[2017-04-27 18:48] LABS: FLUID TOTAL PROTEIN 3.5 g/dl
[2017-04-27 19:30] VITALS: BP 141/75; RESP 18
[2017-04-28 02:56] VITALS: BP 147/77; RESP 20
[2017-04-28] MEDS: ONDANSETRON 4 MG INJ IV PRN ×2 (04:10→09:07)
[2017-04-28] MEDS ORDERED: BISACODYL 10 MG SUPP PR PRN (05:00)
[2017-04-28] MEDS: FAMOTIDINE 20 MG INJ IV SCH (05:07)
[2017-04-28] MEDS: LACTULOSE ENEMA 1,000 ML BTL PR SCH ×4 (06:06→23:10)
[2017-04-28 08:00] VITALS: BP 133/92; RESP 19
[2017-04-28] MEDS: SENNA (PO SYG) PO SCH ×2 (09:09→20:58)
[2017-04-28] MEDS: CARBIDOPA/LEVODOPA (25/100) TAB PO SCH ×3 (09:09→20:58)
[2017-04-28] MEDS: ACETAMINOPHEN 325 MG TAB PO PRN ×3 (09:09→20:58)
[2017-04-28] MEDS: POLYETHYLENE GLYCOL 17 GM PACKET GTB SCH (09:09)
[2017-04-28] MEDS: ENOXAPARIN 30 MG/0.3 ML SYG SC SCH (09:22)
--- NOTE | 2017-04-28 10:26 | CONS ---
Date/Time of Note Date/Time of Note DATE: 04/28/17 TIME: 10:25 Consult Date/Type/Reason Admit Date/Time Apr 26, 2017 at 13:44 Initial Consult Date 04/27/17 Type of Consultation: Neurology Reason for Consultation parkinsons Ordering Provider: DANIEL SILVEIRA NP Subjective unable to tolerate PO vomiting persistent tremors Objective Vital Signs Date Time Temp Pulse Resp B/P Pulse Ox O2 Delivery O2 Flow Rate FiO2 04/28/17 08:00 102.0 109 19 133/92 95 04/27/17 20:15 Nasal Cannula 3.0 Intake and Output 04/27/17 04/27/17 04/28/17 15:00 23:00 07:00 Intake Total 340 ml 40 ml Output Total 50 ml Balance 290 ml 40 ml Exam awake and alert oriented to name and hospital speech with severe tachyphemia and dysarthria difficult to comprehend CN: MARIA LUISA, gaze in both directions no neglect no facial asymmetry Motor: diffuse tremors at rest in all extremities, cogwheeling with contracted right arm no obvious focal weakness Reflexes 2+ throughout downgoing toes Coordination poor cooperation Results/Medications Result Diagram: 04/27/17 0529 04/27/17 0529 Results 24 hrs Laboratory Tests Test 04/27/17 13:40 Body Fluid Type THORACENTESIS FLUID Body Fluid Volume 450.0 Body Fluid Color YELLOW Body Fluid Appearance CLEAR Body Fluid WBC 961 Body Fluid RBC (Auto) 0 Body Fluid Polynuclear WBCs (%) 2.7 Body Fluid Mononuclear Cells % Auto 97.3 Body Fluid Glucose 173 Body Fluid Total Protein 3.5 Body Fluid Lactate Dehydrogenase 186 Medications Current Medications Polyethylene Glycol 17 gm 17 gm BID GTB Last administered on 04/28/17 09:09; Admin Dose 17 GM; Start 04/26/17 at 21:00 Levofloxacin/ Dextrose (Levaquin 500mg/ D5W 100 ml (Pmx)) 100 ml @ 100 mls/hr Q24H IVPB Last administered on 04/27/17 15:35; Admin Dose 100 MLS/HR; Start at 16:00 Enoxaparin Sodium (Lovenox) 30 mg DAILY SC Last administered on 04/28/17 09:22 ; Admin Dose 30 MG; Start 04/26/17 at 16:00 Lorazepam (Ativan) 0.5 mg Q8H PRN PO ANXIETY Last administered on 04/26/17 21: 16; Admin Dose 0.5 MG; Start 04/26/17 at 21:00 Zolpidem Tartrate (Ambien) 5 mg HS PRN PO INSOMNIA Last administered on 23:21; Admin Dose 5 MG; Start 04/27/17 at 03:00 Acetaminophen (Tylenol Tab) 650 mg Q4H PRN PO PAIN AND OR ELEVATED TEMP Last administered on 04/28/17 09:09; Admin Dose 650 MG; Start 04/27/17 at 08:30 Carbidopa/Levodopa (Sinemet (25/ 100)) 1 tab TID PO Last administered on 09:09; Admin Dose 1 TAB; Start 04/27/17 at 13:00 Ondansetron HCl (Zofran Inj) 4 mg Q6H PRN IV NAUSEA AND/OR VOMITING Last administered on 04/28/17 09:07; Admin Dose 4 MG; Start 04/27/17 at 13:30 Famotidine (Pepcid Iv) 20 mg DAILY IV Last administered on 04/28/17 05:07; Admin Dose 20 MG; Start 04/28/17 at 09:00 Bisacodyl (Dulcolax Supp) 10 mg DAILY PRN [place] PRN Last administered on 05:07; Admin Dose 10 MG; Start 04/28/17 at 05:00 Lactulose (Lactulose Enema) 100 ml Q6 [place] Last administered on 04/28/17 06:06; Admin Dose 100 ML; Start 04/28/17 at 06:00 Senna (Senokot (Ped)) 5 ml BID PO ; Start 04/28/17 at 21:00 Assessment/Plan Chief Complaint/Hosp Course 87 year old female admitted with SOB, abdominal pain, pleural effusion with diffuse tremors, cogwheeling, constipation likely with advanced Parkinson's started on Sinemet. Recommendations: reduce frequency of Sinemet to 25/100 TID ( starting dose ) avoid any anti-emetics that may block dopamine receptors and worsen PD symptoms (generally Reglan, Prochloroperazine, Promethazine) may worsen symptoms avoid medications such as Haldol Head CT with chronic microvascular changes, no acute ischemic changes, old lacunar infarctions she will require close outpatient neurology follow up upon discharge to further adjust medications, please pursue further Parkinson's management as outpatient will sign off Problems: J CARLOS JEAN-BAPTISTE MD Apr 28, 2017 10:26
--- NOTE | 2017-04-28 11:16 | PN ---
Date/Time of Note Date/Time of Note DATE: 04/28/17 TIME: 11:15 Assessment/Plan VTE Prophylaxis VTE Prophylaxis Intervention: SCD's Lines/Catheters [facility] Saline [facility] Urinary Cath still in place: No Assessment/Plan Chief Complaint/Hosp Course 1. Dysphagia/abdominal pain. Rule out GI etiology -We will obtain GI consultation for possible endoscopy evaluation - continue pain control, antiemetics PRN (Zofran), stool softeners and laxatives. 2. Parkinson's disease. -Neurology evaluation appreciated. Started on Sinemet and recommend outpatient follow-up. 3. Mild the pleural effusion, status post thoracentesis with elevated WBC. -Continue antibiotics. Obtain ID consult. Follow-up final culture studies. -We will have also pulmonary evaluation. 4. 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 -Vascular consultation has been called and we will follow recommendation. 5. Severe pulmonary hypertension on TTE. Stable. -We will also obtain pulmonary consult. 6. Anemia likely chronic. H&H stable. Will monitor. 7. Constipation: Resolved Plan: Follow-up with GI, ID and pulmonary recommendation. I spoke with patient' s daughter with Irish-speaking RN at bedside and her questions answered to satisfaction. We will also obtain physical therapy evaluation. Case discussed with Problems: Subjective 24 Hr Interval Summary Free Text/Dictation Patient with dysphagia and continued abdominal discomfort and nausea. She also had episode of vomiting yesterday. Very poor intake. No fever or chills. Exam/Review of Systems Vital Signs Vitals Vital Signs Date Time Temp Pulse Resp B/P Pulse Ox O2 Delivery O2 Flow Rate FiO2 04/28/17 08:00 102.0 109 19 133/92 95 04/27/17 20:15 Nasal Cannula 3.0 Intake and Output 04/27/17 04/27/17 04/28/17 15:00 23:00 07:00 Intake Total 340 ml 40 ml Output Total 50 ml Balance 290 ml 40 ml Exam General: Frail looking elderly female , not in any acute distress . HEENT: Normocephalic, Atraumatic, No laceration or hematoma; Eyes: PEERL, Conjunctiva clear, Anicteric sclera Neck: Supple without any lymphadenopathy, nontender, no JVD, no carotid bruits, trachea midline, no thyromegaly Cardiac: S1, S2 auscultated, regular rhythm and rate, no mumurs or gallop Pulmonary: Normal respiratory effort. Chest clear to auscultation bilaterally, no adventitious breath sounds GI: Abdomen normal to inspection. Soft, non tender, non- distended, no masses, no rebound tenderness or guarding. Bowel sounds active on all four quadrants Genitourinary: Deferred Extremities: With tremors mostly on fingers. +Rigidity. no cyanosis, clubbing , or edema. Pulses [2+] bilaterally. Full ROM on all four extremities. No focal weakness appreciated. Neurologic:Awake/Oriented 2. With dysarthria. intact sensation. Skin: Clean,dry, and intact. No ecchymosis, no rashes, or lesions Results Result Diagram: 04/27/1752804/27/17528 Results 24 hrs Laboratory Tests Test 04/27/17 13:40 Body Fluid Type THORACENTESIS FLUID Body Fluid Volume 450.0 Body Fluid Color YELLOW Body Fluid Appearance CLEAR Body Fluid WBC 961 Body Fluid RBC (Auto) 0 Body Fluid Polynuclear WBCs (%) 2.7 Body Fluid Mononuclear Cells % Auto 97.3 Body Fluid Glucose 173 Body Fluid Total Protein 3.5 Body Fluid Lactate Dehydrogenase 186 Medications Medications Current Medications Polyethylene Glycol 17 gm 17 gm BID GTB Last administered on 04/28/17 09:09; Admin Dose 17 GM; Start 04/26/17 at 21:00 Levofloxacin/ Dextrose (Levaquin 500mg/ D5W 100 ml (Pmx)) 100 ml @ 100 mls/hr Q24H IVPB Last administered on 04/27/17 15:35; Admin Dose 100 MLS/HR; Start at 16:00 Enoxaparin Sodium (Lovenox) 30 mg DAILY SC Last administered on 04/28/17 09:22 ; Admin Dose 30 MG; Start 04/26/17 at 16:00 Lorazepam (Ativan) 0.5 mg Q8H PRN PO ANXIETY Last administered on 04/26/17 21: 16; Admin Dose 0.5 MG; Start 04/26/17 at 21:00 Zolpidem Tartrate (Ambien) 5 mg HS PRN PO INSOMNIA Last administered on 23:21; Admin Dose 5 MG; Start 04/27/17 at 03:00 Acetaminophen (Tylenol Tab) 650 mg Q4H PRN PO PAIN AND OR ELEVATED TEMP Last administered on 04/28/17 09:09; Admin Dose 650 MG; Start 04/27/17 at 08:30 Carbidopa/Levodopa (Sinemet (25/ 100)) 1 tab TID PO Last administered on 09:09; Admin Dose 1 TAB; Start 04/27/17 at 13:00 Ondansetron HCl (Zofran Inj) 4 mg Q6H PRN IV NAUSEA AND/OR VOMITING Last administered on 04/28/17 09:07; Admin Dose 4 MG; Start 04/27/17 at 13:30 Famotidine (Pepcid Iv) 20 mg DAILY IV Last administered on 04/28/17 05:07; Admin Dose 20 MG; Start 04/28/17 at 09:00 Bisacodyl (Dulcolax Supp) 10 mg DAILY PRN [place] PRN Last administered on 05:07; Admin Dose 10 MG; Start 04/28/17 at 05:00 Lactulose (Lactulose Enema) 100 ml Q6 [place] Last administered on 04/28/17 06:06; Admin Dose 100 ML; Start 04/28/17 at 06:00 Senna (Senokot (Ped)) 5 ml BID PO ; Start 04/28/17 at 21:00 DANIEL SILVEIRA NP Apr 28, 2017 11:15 DANIEL SILVEIRA NP Apr 28, 2017 11:15
--- NOTE | 2017-04-28 13:51 | CONS ---
Date/Time of Note Date/Time of Note DATE: 04/28/17 TIME: 13:37 Assessment/Plan Assessment/Plan Additional Assessment/Plan Assessment * Dysphagia * Intractable vomiting * Pleural effusion * S/P thoracentesis * Parkinson * Plan * EGD risks and benefit explained to family agreed with planned procedure * Continue present management * Case discussed with DR Krueger * Further orders will depend on clinical course Consultation Date/Type/Reason Admit Date/Time Apr 26, 2017 at 13:44 Date of Consultation: Apr 28, 2017 Type of Consultation: Gastroenterology Reason for Consultation intractable nausea and vomiting Referring Provider: TYRONE TEMPLE MD Hx of Present Illness 87 year old female with past medical history of Parkinson was admitted because of shortness of breath,abdominal pain.present condition apparently started few days prior to consult as progressive shortness of breath ,with abdominal pian .It is associated with nausea and vomiting but no hematemesis,hematochezia,nor fever.Family claims history of recurrent epigastric pain for the past several months and they are worried because of previous history of gastric ulcer,unable to take food regularly CT scan showed There is a small to moderate layering left effusion with elevation of the left hemidiaphragm. There is a trace amount of right pleural fluid is present. The heart is mildly enlarged. There is compressive collapse of the visualized portion of the left lower lobe from pleural fluid and elevated hemidiaphragm. Coronary artery calcifications are seen in the heart. There is hepatomegaly of the liver with no focal lesion or biliary ductal dilatation. The gallbladder is not seen, and the portal vein is intact without thrombus. The spleen is mildly enlarged. Rounded calcific densities are seen in the area of the splenic artery consistent with splenic artery aneurysms that appear thrombosed including of 14 mm superior focus and a 15 mm inferior focus. The adrenal glands are within normal limits without mass. The kidneys enhance symmetrically bilaterally without hydronephrosis or perinephric stranding. The pancreas is unremarkable without focal lesion or surrounding inflammatory changes. Motion limits fine detail of the bowel. There is laxity of the anterior abdominal wall with pannus formation and there is extension of the small and large bowel anteriorly over the pubic symphysis. There is a fecal filled colon present without evidence of bowel obstruction or visible focal bowel inflammation. The appendix is not seen. There is no free air or free fluid. There are no enlarged lymph nodes. Diffuse aortic atherosclerosis is seen. There is generalized osteopenia and diffuse degenerative disease seen involving the lumbar spine. 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 There is loss of the proximal right femur cortex. Numerous vascular calcifications are seen in the uterus which otherwise unremarkable. There is no adnexal mass I have spoke with the daughter through our nurse in charge edit ,and explained the planned procedure which is EGD,family agreed with the planned procedure Past Medical History Medical History: other (parkinsons) Past Surgical History Past Surgical Hx: noncontributory Social History Alcohol Use: none Smoking Status: Never smoker Drug Use: none Exam/Review of Systems Vital Signs Vitals Vital Signs Date Time Temp Pulse Resp B/P Pulse Ox O2 Delivery O2 Flow Rate FiO2 04/28/17 08:00 102.0 109 19 133/92 95 04/27/17 20:15 Nasal Cannula 3.0 Intake and Output 04/27/17 04/27/17 04/28/17 15:00 23:00 07:00 Intake Total 340 ml 40 ml Output Total 50 ml Balance 290 ml 40 ml Exam Constitutional: frail Head: atraumatic, normocephalic Eyes: PERRL, nl conjunctiva, nl sclera ENMT: nl nasal mucosa & septum Neck: non-tender, supple Respiratory: crackles/rales, diminished breath sounds, normal air movement Cardiovascular: nl pulses, regular rate and rhythm Gastrointestinal: distended, non-tender, soft Musculoskeletal: nl extremities to inspection, nl gait and stance Extremities: normal pulses Neurological: other (tremors) Skin: nl turgor, No rash or lesions Lymph: nl lymph nodes Results Result Diagram: 04/27/17 0529 04/27/17 0529 Results 24 hrs Laboratory Tests Test 04/27/17 13:40 Body Fluid Type THORACENTESIS FLUID Body Fluid Volume 450.0 Body Fluid Color YELLOW Body Fluid Appearance CLEAR Body Fluid WBC 961 Body Fluid RBC (Auto) 0 Body Fluid Polynuclear WBCs (%) 2.7 Body Fluid Mononuclear Cells % Auto 97.3 Body Fluid Glucose 173 Body Fluid Total Protein 3.5 Body Fluid Lactate Dehydrogenase 186 Medications Medications Current Medications Polyethylene Glycol 17 gm 17 gm BID GTB Last administered on 04/28/17t 09:09; Admin Dose 17 GM; Start 04/26/17 at 21:00 Levofloxacin/ Dextrose (Levaquin 500mg/ D5W 100 ml (Pmx)) 100 ml @ 100 mls/hr Q24H IVPB Last administered on 04/27/17 15:35; Admin Dose 100 MLS/HR; Start at 16:00 Enoxaparin Sodium (Lovenox) 30 mg DAILY SC Last administered on 04/28/17 09:22 ; Admin Dose 30 MG; Start 04/26/17 at 16:00 Lorazepam (Ativan) 0.5 mg Q8H PRN PO ANXIETY Last administered on 04/26/17 21: 16; Admin Dose 0.5 MG; Start 04/26/17 at 21:00 Zolpidem Tartrate (Ambien) 5 mg HS PRN PO INSOMNIA Last administered on 23:21; Admin Dose 5 MG; Start 04/27/17 at 03:00 Acetaminophen (Tylenol Tab) 650 mg Q4H PRN PO PAIN AND OR ELEVATED TEMP Last administered on 04/28/17 09:09; Admin Dose 650 MG; Start 04/27/17 at 08:30 Carbidopa/Levodopa (Sinemet (25/ 100)) 1 tab TID PO Last administered on 09:09; Admin Dose 1 TAB; Start 04/27/17 at 13:00 Ondansetron HCl (Zofran Inj) 4 mg Q6H PRN IV NAUSEA AND/OR VOMITING Last administered on 04/28/17 09:07; Admin Dose 4 MG; Start 04/27/17 at 13:30 Famotidine (Pepcid Iv) 20 mg DAILY IV Last administered on 04/28/17 05:07; Admin Dose 20 MG; Start 04/28/17 at 09:00 Bisacodyl (Dulcolax Supp) 10 mg DAILY PRN [place] PRN Last administered on 05:07; Admin Dose 10 MG; Start 04/28/17 at 05:00 Lactulose (Lactulose Enema) 100 ml Q6 [place] Last administered on 04/28/17 06:06; Admin Dose 100 ML; Start 04/28/17 at 06:00 Senna (Senokot (Ped)) 5 ml BID PO ; Start 04/28/17 at 21:00 ENDY ADAMSON NP Apr 28, 2017 13:48
[2017-04-28 14:00] VITALS: BP 126/57; RESP 19
--- NOTE | 2017-04-28 14:47 | PN ---
Date/Time of Note Date/Time of Note DATE: 04/28/17 TIME: 14:38 Assessment/Plan VTE Prophylaxis VTE Prophylaxis Intervention: SCD's Lines/Catheters IV [facility] Urinary Cath still in place: No Assessment/Plan Chief Complaint/Hosp Course 1. Nausea/vomiting/abdominal pain, most likely constipation related versus other GI etiology. -We will obtain GI consultation for possible endoscopy evaluation - continue pain control, antiemetics PRN (Zofran), stool softeners and laxatives. 2. Parkinson's disease. -Neurology evaluation appreciated. Started on Sinemet and recommend outpatient follow-up. 3. Mild the pleural effusion, status post thoracentesis with elevated WBC. -Continue antibiotics. Obtain ID consult. Follow-up final culture studies. -We will have also pulmonary evaluation. 4. 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 -Vascular consultation has been called and we will follow recommendation. 5. Severe pulmonary hypertension on TTE. Stable. -We will also obtain pulmonary consult. 6. Anemia likely chronic. H&H stable. Will monitor. 7. Constipation: Resolved Plan: Follow-up with GI, ID and pulmonary recommendation. I spoke with patient' s daughter with Greek-speaking RN at bedside and her questions answered to satisfaction. Case discussed with Problems: Subjective 24 Hr Interval Summary Free Text/Dictation Patient with continued abdominal discomfort and nausea. She also had episode of vomiting yesterday. Very poor intake. No fever or chills. Exam/Review of Systems Vital Signs Vitals Vital Signs Date Time Temp Pulse Resp B/P Pulse Ox O2 Delivery O2 Flow Rate FiO2 04/28/17 08:00 102.0 109 19 133/92 95 04/27/17 20:15 Nasal Cannula 3.0 Intake and Output 04/27/17 04/27/17 04/28/17 15:00 23:00 07:00 Intake Total 340 ml 40 ml Output Total 50 ml Balance 290 ml 40 ml Exam General: Frail looking elderly female , not in any acute distress . HEENT: Normocephalic, Atraumatic, No laceration or hematoma; Eyes: PEERL, Conjunctiva clear, Anicteric sclera Neck: Supple without any lymphadenopathy, nontender, no JVD, no carotid bruits, trachea midline, no thyromegaly Cardiac: S1, S2 auscultated, regular rhythm and rate, no mumurs or gallop Pulmonary: Normal respiratory effort. Chest clear to auscultation bilaterally, no adventitious breath sounds GI: Abdomen normal to inspection. Soft, non tender, non- distended, no masses, no rebound tenderness or guarding. Bowel sounds active on all four quadrants Genitourinary: Deferred Extremities: With tremors mostly on fingers. +Rigidity. no cyanosis, clubbing , or edema. Pulses [2+] bilaterally. Full ROM on all four extremities. No focal weakness appreciated. Neurologic:Awake/Oriented 2. With dysarthria. intact sensation. Skin: Clean,dry, and intact. No ecchymosis, no rashes, or lesions Results Result Diagram: 04/27/1752804/27/17528 Medications Medications Current Medications Polyethylene Glycol 17 gm 17 gm BID GTB Last administered on 04/28/17 09:09; Admin Dose 17 GM; Start 04/26/17 at 21:00 Levofloxacin/ Dextrose (Levaquin 500mg/ D5W 100 ml (Pmx)) 100 ml @ 100 mls/hr Q24H IVPB Last administered on 04/27/17 15:35; Admin Dose 100 MLS/HR; Start at 16:00 Enoxaparin Sodium (Lovenox) 30 mg DAILY SC Last administered on 04/28/17 09:22 ; Admin Dose 30 MG; Start 04/26/17 at 16:00 Lorazepam (Ativan) 0.5 mg Q8H PRN PO ANXIETY Last administered on 04/26/17 21: 16; Admin Dose 0.5 MG; Start 04/26/17 at 21:00 Zolpidem Tartrate (Ambien) 5 mg HS PRN PO INSOMNIA Last administered on 23:21; Admin Dose 5 MG; Start 04/27/17 at 03:00 Acetaminophen (Tylenol Tab) 650 mg Q4H PRN PO PAIN AND OR ELEVATED TEMP Last administered on 04/28/17 09:09; Admin Dose 650 MG; Start 04/27/17 at 08:30 Carbidopa/Levodopa (Sinemet (25/ 100)) 1 tab TID PO Last administered on 09:09; Admin Dose 1 TAB; Start 04/27/17 at 13:00 Ondansetron HCl (Zofran Inj) 4 mg Q6H PRN IV NAUSEA AND/OR VOMITING Last administered on 04/28/17 09:07; Admin Dose 4 MG; Start 04/27/17 at 13:30 Famotidine (Pepcid Iv) 20 mg DAILY IV Last administered on 04/28/17 05:07; Admin Dose 20 MG; Start 04/28/17 at 09:00 Bisacodyl (Dulcolax Supp) 10 mg DAILY PRN [place] PRN Last administered on 05:07; Admin Dose 10 MG; Start 04/28/17 at 05:00 Lactulose (Lactulose Enema) 100 ml Q6 [place] Last administered on 04/28/17 06:06; Admin Dose 100 ML; Start 04/28/17 at 06:00 Senna (Senokot (Ped)) 5 ml BID PO ; Start 04/28/17 at 21:00 DANIEL SILVEIRA NP Apr 28, 2017 14:47
--- NOTE | 2017-04-28 15:19 | CONS ---
Date/Time of Note Date/Time of Note DATE: 04/28/17 TIME: 15:18 Consultation Date/Type/Reason Admit Date/Time Apr 26, 2017 at 13:44 Date of Consultation: Apr 28, 2017 Type of Consultation: ID Reason for Consultation Antibiotic management Past Medical History Medical History: other (parkinsons) Past Surgical History Past Surgical Hx: noncontributory Social History Alcohol Use: none Smoking Status: Never smoker Drug Use: none Exam/Review of Systems Vital Signs Vitals Vital Signs Date Time Temp Pulse Resp B/P Pulse Ox O2 Delivery O2 Flow Rate FiO2 04/28/17 14:00 99.4 95 19 126/57 96 04/27/17 20:15 Nasal Cannula 3.0 Intake and Output 04/27/17 04/27/17 04/28/17 15:00 23:00 07:00 Intake Total 340 ml 40 ml Output Total 50 ml Balance 290 ml 40 ml Results Result Diagram: 04/27/17 0529 04/27/17 0529 Medications Medications Current Medications Polyethylene Glycol 17 gm 17 gm BID GTB Last administered on 04/28/17 09:09; Admin Dose 17 GM; Start 04/26/17 at 21:00 Levofloxacin/ Dextrose (Levaquin 500mg/ D5W 100 ml (Pmx)) 100 ml @ 100 mls/hr Q24H IVPB Last administered on 04/27/17 15:35; Admin Dose 100 MLS/HR; Start at 16:00 Enoxaparin Sodium (Lovenox) 30 mg DAILY SC Last administered on 04/28/17 09:22 ; Admin Dose 30 MG; Start 04/26/17 at 16:00 Lorazepam (Ativan) 0.5 mg Q8H PRN PO ANXIETY Last administered on 04/26/17 21: 16; Admin Dose 0.5 MG; Start 04/26/17 at 21:00 Zolpidem Tartrate (Ambien) 5 mg HS PRN PO INSOMNIA Last administered on 23:21; Admin Dose 5 MG; Start 04/27/17 at 03:00 Acetaminophen (Tylenol Tab) 650 mg Q4H PRN PO PAIN AND OR ELEVATED TEMP Last administered on 04/28/17 09:09; Admin Dose 650 MG; Start 04/27/17 at 08:30 Carbidopa/Levodopa (Sinemet (25/ 100)) 1 tab TID PO Last administered on 09:09; Admin Dose 1 TAB; Start 04/27/17 at 13:00 Ondansetron HCl (Zofran Inj) 4 mg Q6H PRN IV NAUSEA AND/OR VOMITING Last administered on 04/28/17 09:07; Admin Dose 4 MG; Start 04/27/17 at 13:30 Famotidine (Pepcid Iv) 20 mg DAILY IV Last administered on 04/28/17 05:07; Admin Dose 20 MG; Start 04/28/17 at 09:00 Bisacodyl (Dulcolax Supp) 10 mg DAILY PRN [place] PRN Last administered on 05:07; Admin Dose 10 MG; Start 04/28/17 at 05:00 Lactulose (Lactulose Enema) 100 ml Q6 [place] Last administered on 04/28/17 06:06; Admin Dose 100 ML; Start 04/28/17 at 06:00 Senna (Senokot (Ped)) 5 ml BID PO ; Start 04/28/17 at 21:00 OZZIE HERNANDES MD Apr 28, 2017 15:19
[2017-04-28] MEDS ORDERED: VANCOMYCIN IV PER PHARMACY XX SCH (15:30)
[2017-04-28] MEDS: CEFEPIME 1GM/50 ML (PMX) 50 ML IVPB SCH (16:45)
[2017-04-28] MEDS ORDERED: VANCOMYCIN 1 GM in NS 250 ML IVPB SCH (17:15)
[2017-04-28 19:42] VITALS: BP 142/64; RESP 18
[2017-04-28] MEDS: POLYETHYLENE GLYCOL 17 GM PACKET PO SCH (20:58)
[2017-04-28] MEDS: LORAZEPAM 0.5 MG TAB PO PRN (22:03)
--- NOTE | 2017-04-29 01:10 | CONS ---
DATE OF ADMISSION: 04/26/2017 DATE OF CONSULTATION: 04/28/2017 INFECTIOUS DISEASE CONSULTATION REASON FOR CONSULTATION: Antibiotic management. HISTORY OF PRESENT ILLNESS: Nancy Au is an 87-year-old, female with a number of problems who was admitted with worsening lethargy, abdominal pain, and poor intake. PROBLEMS: 1. Hypertension. 2. Diabetes mellitus. 3. Parkinson disease with profound tremors. 4. Senile dementia. Acutely the patient comes in as noted with abdominal pain. Echocardiogram was done, which showed right-sided pressures and severe pulmonary hypertension. She has been found to have left- sided pleural effusion and marked constipation on CT scan. She also has a thrombosed splenic artery aneurysm. It is unclear if the splenic artery aneurysm is the cause for the abdominal pain. was with consulted from the vascular perspective. On admission, white count was 6.5, H and H, 10.5, 33.2, platelet count 178,000. On the it was 6.3. Her urine is negative for leukocyte esterase and nitrites. BUN and creatinine is 18/0.74. She had an uncomplicated ultrasound-guided left thoracentesis on the with 440 mL drained, 961 white cells, 2.7 percent polys, 97 percent mononuclear cells, 3.5 g of protein which appears more to be exudative and an LDH of 186. Blood cultures are negative. Urine cultures are negative. Body fluid cultures are pending. A CT scan of the abdomen and pelvis showed cardiomegaly, bilateral pleural effusions prior to the thoracentesis, fecal filled colon without obstruction, hepatosplenomegaly, small calcified and thrombosed splenic artery aneurysms are present. Right total hip arthroplasty with proximal femoral awais. A CT scan of the chest and thorax is negative for PE. Her chest x-ray status post interval left thoracentesis: Improved pulmonary vascular congestion. The patient is on Levaquin for possible pneumonitis I would imagine. PAST MEDICAL HISTORY: Operations as outlined. FAMILY HISTORY: Noncontributory. SOCIAL HISTORY: She does not smoke, drink, or abuse drugs. ALLERGIES: NONE TO PENICILLIN, SULFA, OR FOODS. MEDICATION: Per chart. REVIEW OF SYSTEMS: As per HPI. PHYSICAL EXAMINATION: GENERAL: Patient is an elderly appearing female who is confused, in no obvious distress. VITAL SIGNS: Stable but her temperature is 102. SKIN: Without generalized rash. HEENT: Within normal limits. NECK: Supple. Lymph nodes nonpalpable. CHEST: Decreased breath sounds at the bases. HEART: Without murmur or gallop. ABDOMEN: Soft, nontender, without organomegaly, splenomegaly or masses. EXTREMITIES: No cyanosis, clubbing, or edema. RECTAL: Deferred. GENITAL: Deferred. NEUROLOGICAL: The patient has a tremor associated with Parkinson disease and has dementia. IMPRESSION AND PLAN: Patient spiked a fever, temperature up to 102 degrees, the etiology of which is unclear. Urine and chest x- rays are clear at this point. By the way, her thoracentesis did show evidence of exudate although it only had 961 white cells, and with mostly lymphocytes and mononuclear cells. I am going to make sure that she has had blood cultures done. She has AFB culture and smear done, as well as routine smears done from her fluid. Urinalysis and cultures were done. She was given Vanco and cefepime initially and actually she is on Levaquin. I am going to change her to vancomycin and cefepime. I will dictate my findings to the hospitalist. Dictated By: Shashi Jaffe MD JD/lexis/lorenza /Document#: [id number]
[2017-04-29 02:13] VITALS: BP 141/57; RESP 18
[2017-04-29] MEDS ORDERED: morphine 2 MG INJ IV PRN (03:00)
[2017-04-29] MEDS ORDERED: HYDROCODONE/APAP (5/325) TAB PO PRN (03:00)
[2017-04-29] MEDS: LACTULOSE ENEMA 1,000 ML BTL PR SCH ×3 (05:57→17:42)
[2017-04-29] MEDS: LORAZEPAM 0.5 MG TAB PO PRN ×2 (06:03→12:26)
[2017-04-29] MEDS: POLYETHYLENE GLYCOL 17 GM PACKET PO SCH ×3 (09:00→21:22)
--- NOTE | 2017-04-29 10:26 | PN ---
Date/Time of Note Date/Time of Note DATE: 04/29/17 TIME: 10:12 Assessment/Plan VTE Prophylaxis VTE Prophylaxis Intervention: SCD's Lines/Catheters IV [facility] [place] Urinary Cath still in place: No Assessment/Plan Chief Complaint/Hosp Course 1. Dysphagia with inadequate intake. Rule out GI etiology -Status post ST eval and with puree/thin liquid recommendation with aspiration precaution and full feeding assist.Family refused EGD today and wanted to proceed with Gtube. -Will have official video swallow study and dietary eval for calorie count. Consider -tube if patient fails video study or having poor calorie intake. -Start multivitamin, vit C, folate supplementation 2. Parkinson's disease. -Neurology evaluation appreciated. Started on Sinemet and recommend outpatient follow-up. 3. Mild the pleural effusion, status post thoracentesis with elevated WBC.? Exudate -Continue antibiotics. Follow-up final culture studies. -F/u pulmonary and ID recs 4. 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 -Vascular eval appreciated and no inpatient work-up indicated,. 5. Severe pulmonary hypertension on TTE. Stable. -will f/u with pulmonary recs. We doubt if she is an appropriate candidate for any medication management. 6. Anemia likely chronic. H&H stable. Will monitor. 7. Constipation: Resolved Plan: Follow-up Video swallow study regarding further Gtube placement if indicated. Hold off to EGD until video swallow completed.Will also have dietary eval. Continue current medical mgmt and f/u with consultants recs.Continue PT eval. I spoke with pt's daughter again today and she is in agreement with the above plan. She also refused SNF placement. Case discussed with Problems: Subjective 24 Hr Interval Summary Free Text/Dictation Patient had ST eval and ecommended puree/thin liquid, by spoon or cup. Patient requires assistance feeding and with very poor intake. Daughter upset and refused EGD and wanted Gtube placed. Exam/Review of Systems Vital Signs Vitals Vital Signs Date Time Temp Pulse Resp B/P Pulse Ox O2 Delivery O2 Flow Rate FiO2 04/29/17 02:13 97.6 79 18 141/57 95 04/28/17 21:00 Nasal Cannula 2.0 Intake and Output 04/28/17 04/28/17 04/29/17 15:00 23:00 07:00 Intake Total 420 ml 240 ml Balance 420 ml 240 ml Exam General: Frail looking elderly female who also appears demented and confused, not in any acute distress . HEENT: Normocephalic, Atraumatic, No laceration or hematoma; Eyes: PEERL, Conjunctiva clear, Anicteric sclera Neck: Supple without any lymphadenopathy, nontender, no JVD, no carotid bruits, trachea midline, no thyromegaly Cardiac: S1, S2 auscultated, regular rhythm and rate, no mumurs or gallop Pulmonary: Normal respiratory effort. Chest clear to auscultation bilaterally, no adventitious breath sounds GI: Abdomen normal to inspection. Soft, non tender, non- distended, no masses, no rebound tenderness or guarding. Bowel sounds active on all four quadrants Genitourinary: Deferred Extremities: With tremors mostly on fingers. +Rigidity. no cyanosis, clubbing , or edema. Pulses [2+] bilaterally. Full ROM on all four extremities. No focal weakness appreciated. Neurologic:Awake/Confused.?Dementia With dysarthria. intact sensation. Skin: Clean,dry, and intact. No ecchymosis, no rashes, or lesions Results Result Diagram: 04/27/1752804/27/17528 Medications Medications Current Medications Enoxaparin Sodium (Lovenox) 30 mg DAILY SC Last administered on 04/28/17 09:22 ; Admin Dose 30 MG; Start 04/26/17 at 16:00 Lorazepam (Ativan) 0.5 mg Q8H PRN PO ANXIETY Last administered on 04/29/17 06: 03; Admin Dose 0.5 MG; Start 04/26/17 at 21:00 Zolpidem Tartrate (Ambien) 5 mg HS PRN PO INSOMNIA Last administered on 23:21; Admin Dose 5 MG; Start 04/27/17 at 03:00 Acetaminophen (Tylenol Tab) 650 mg Q4H PRN PO PAIN AND OR ELEVATED TEMP Last administered on 04/28/17 20:58; Admin Dose 650 MG; Start 04/27/17 at 08:30 Carbidopa/Levodopa (Sinemet (25/ 100)) 1 tab TID PO Last administered on 20:58; Admin Dose 1 TAB; Start 04/27/17 at 13:00 Ondansetron HCl (Zofran Inj) 4 mg Q6H PRN IV NAUSEA AND/OR VOMITING Last administered on 04/28/17 09:07; Admin Dose 4 MG; Start 04/27/17 at 13:30 Famotidine (Pepcid Iv) 20 mg DAILY IV Last administered on 04/28/17 05:07; Admin Dose 20 MG; Start 04/28/17 at 09:00 Bisacodyl (Dulcolax Supp) 10 mg DAILY PRN [place] PRN Last administered on 05:07; Admin Dose 10 MG; Start 04/28/17 at 05:00 Lactulose (Lactulose Enema) 100 ml Q6 WV Last administered on 04/28/17 06:06; Admin Dose 100 ML; Start 04/28/17 at 06:00 Senna 5 ml 5 ml BID PO Last administered on 04/28/17 20:58; Admin Dose 5 ML; Start 04/28/17 at 21:00 Cefepime HCl 50 ml @ 100 mls/hr Q24H IVPB Last administered on 04/28/17 16:45 ; Admin Dose 100 MLS/HR; Start 04/28/17 at 16:15 Vancomycin HCl (Vancocin) 100 ml @ 100 mls/hr Q24H IVPB ; Start 04/29/17 at 17: 00 Polyethylene Glycol (Miralax) 17 gm BID PO Last administered on 04/28/17 20:58 ; Admin Dose 17 GM; Start 04/28/17 at 21:00 Morphine Sulfate (morphine) 2 mg Q4H PRN IV PAIN Last administered on 02:49; Admin Dose 2 MG; Start 04/29/17 at 03:00 Acetaminophen/ Hydrocodone Bitart ([place] (5/325)) 1 tab Q6H PRN PO PAIN; Start 04/29/17 at 03:00 DANIEL SILVEIRA NP Apr 29, 2017 10:26
[2017-04-29 10:27] LABS: BASOPHILS % 0.1 % (0.0-2.0); HEMATOCRIT 33.1 % (37.0-47.0); HEMOGLOBIN 10.1 g/dl (12.0-16.0); LYMPHOCYTES # 1.5 10^3/ul (0.8-2.9); LYMPHOCYTES % 9.2 % (15.0-51.0); MEAN CORPUSCULAR HEMOGLOBIN 27.6 pg (29.0-33.0); MEAN CORPUSCULAR HGB CONC 30.5 g/dl (32.0-37.0); MEAN CORPUSCULAR VOLUME 90.4 fl (82.0-101.0); MEAN PLATELET VOLUME 9.8 fl (7.4-10.4); MONOCYTE # 1.1 10^3/ul (0.3-0.9); MONOCYTES % 6.8 % (0.0-11.0); NEUTROPHILS % 82.7 % (39.0-77.0); PLATELET COUNT 229 10^3/UL (140-415); RED BLOOD COUNT 3.66 10^6/ul (4.20-5.40); RED CELL DISTRIBUTION WIDTH 13.8 % (11.5-14.5); WHITE BLOOD COUNT 15.8 10^3/ul (4.8-10.8)
[2017-04-29 10:52] LABS: CALCIUM 9.3 mg/dl (8.4-10.2); CREATININE 0.81 mg/dl (0.44-1.00)
[2017-04-29] MEDS: FAMOTIDINE 20 MG INJ IV SCH (11:05)
[2017-04-29] MEDS: CARBIDOPA/LEVODOPA (25/100) TAB PO SCH ×2 (11:05→12:26)
[2017-04-29] MEDS: SENNA (PO SYG) PO SCH ×2 (11:05→21:22)
[2017-04-29] MEDS: ENOXAPARIN 30 MG/0.3 ML SYG SC SCH (11:06)
[2017-04-29] MEDS: DEXTROSE 5%-0.45% NACL 1,000 ML IV SCH (11:07)
[2017-04-29] MEDS: CEFEPIME 1GM/50 ML (PMX) 50 ML IVPB SCH (16:39)
[2017-04-29] MEDS: VANCOMYCIN 500MG/NS (PMX) 100 ML IVPB SCH (17:36)
[2017-04-29] MEDS ORDERED: LABETALOL HCL 20MG INJ IV PRN (20:30)
[2017-04-29] MEDS ORDERED: GLUCOSE GEL 15 GRAM TUBE BUCCAL PRN (20:30)
[2017-04-29] MEDS ORDERED: DEXTROSE 50% 50 ML SYRINGE IV PRN ×2 (20:30)
[2017-04-29] MEDS ORDERED: GLUCOSE GEL 15 GRAM TUBE PO PRN ×2 (20:30)
[2017-04-29] MEDS: ACCU-CHEK XX SCH (20:30)
[2017-04-29] MEDS: INSULIN ASPART [NOVOLOG] 3 ML PEN SC SCH ×2 (20:30→22:56)
[2017-04-29] MEDS ORDERED: METOPROLOL 25 MG TAB PO PRN (20:30)
[2017-04-29] MEDS ORDERED: GLUCAGON 1 MG INJ IM PRN (20:30)
[2017-04-29 20:42] VITALS: BP 178/96; RESP 18
[2017-04-29] MEDS: ACETAMINOPHEN 650 MG SUPP PR PRN (21:09)
[2017-04-29] MEDS: METOPROLOL 25 MG TAB PO SCH (21:22)
[2017-04-29] MEDS: INSULIN GLARGINE [LANtus] 3 ML PEN SC SCH (22:53)
[2017-04-30] VITALS (7 sets, daily range): BP systolic 116–143; BP diastolic 68–89; PULSE 85–100; RESP 16–24
[2017-04-30] MEDS: INSULIN ASPART [NOVOLOG] 3 ML PEN SC SCH ×4 (00:45→17:57)
[2017-04-30] MEDS: ACCU-CHEK XX SCH ×5 (02:00→17:58)
[2017-04-30] MEDS: LACTULOSE ENEMA 1,000 ML BTL PR SCH ×3 (05:46→12:00)
[2017-04-30] MEDS: SENNA (PO SYG) PO SCH ×2 (08:45→21:00)
[2017-04-30] MEDS: FAMOTIDINE 20 MG INJ IV SCH (08:45)
[2017-04-30] MEDS: ASCORBIC ACID 500 MG TAB PO SCH (08:45)
[2017-04-30] MEDS: FOLIC ACID 1 MG TAB PO SCH (08:45)
[2017-04-30] MEDS: ACETAMINOPHEN 325 MG TAB PO PRN (08:45)
[2017-04-30] MEDS: MULTIVITAMINS THERAPEUTIC TAB PO SCH (08:45)
[2017-04-30] MEDS: POLYETHYLENE GLYCOL 17 GM PACKET PO SCH ×3 (08:46→21:12)
[2017-04-30] MEDS: METOPROLOL 25 MG TAB PO SCH ×3 (08:46→21:11)
[2017-04-30] MEDS: ENOXAPARIN 30 MG/0.3 ML SYG SC SCH (08:47)
--- NOTE | 2017-04-30 09:55 | CONS ---
DATE OF ADMISSION: 04/26/2017 DATE OF CONSULTATION: REASON FOR CONSULTATION: Shortness of breath. Thank you Dr. Basurto for this consultation. HISTORY OF PRESENT ILLNESS: This is an 87-year-old lady with multiple medical problems, initially admitted with increasing shortness of breath, orthopnea and PND, found on admission to have moderate left pleural effusion. She underwent thoracentesis. Pleural effusion was consistent with exudative process with significant white blood cells. Upon examination, the patient does have advanced Parkinson's disease with possible component of dementia also. She was seen by speech therapy and recommended her to have modified diet. She is at risk of aspiration. The patient is currently nonverbal at bedside. Her caregiver is present. PAST MEDICAL HISTORY: 1. Advanced Parkinson disease. 2. Possible dementia. 3. Likely chronic dysphagia. 4. Diabetes mellitus. MEDICATION: Medications per chart. ALLERGIES: NONE. SOCIAL HISTORY: Nonsmoker. No alcohol. No history of drug use. FAMILY HISTORY: Noncontributory. REVIEW OF SYSTEMS: 12-point review of systems negative other than mentioned above. PHYSICAL EXAMINATION: GENERAL APPEARANCE: On examination, elderly appearing lady who appears relatively comfortable, eyes closed, nonverbal. No accessory muscle use. VITAL SIGNS: Currently afebrile. Pulse is 79, blood pressure 140/57, O2 saturation 96 percent on 2 L nasal cannula. NECK: Supple. No JVD. No lymphadenopathy. HEART: S1/S2. No added sounds or murmurs. CHEST: Diminished air entry bilaterally. ABDOMEN: Soft, nontender. No guarding or rebound. EXTREMITIES: No cyanosis, clubbing or edema. NEUROLOGIC: Generalized weakness, cogwheel rigidity and tremor at rest. LABORATORY: White count 15.8, hemoglobin 10.1, platelets of 229. BUN 25, creatinine 0.81. Initial pleural fluid studies show no growth. IMPRESSION AND PLAN: 1. Likely chronic aspiration. 2. Pleural effusion likely secondary to above. 3. Advanced Parkinson's disease. 4. Dysphagia. Recommend: 5. Continue current antibiotics pending further culture results. 6. Aspiration precautions. 7. Supplemental O2. 8. Consider addressing code status as overall prognosis given her advanced dementia is guarded. Dictated By: Levi Kirby MD /lexis/lorenza /Document#: [id number]
--- NOTE | 2017-04-30 09:58 | PN ---
DATE: 04/29/2017 SUBJECTIVE: Patient is sitting in bed. Family member at bedside states that patient ate almost 80 percent of her lunch. Of note, she is on pureed diet. T-max yesterday 102, T current 97.6. Pulse 79. Respirations 18. Blood pressure 141/57. Saturation 95 percent. LABORATORY AND DIAGNOSTIC DATA: WBC 15.8, H and H 10.1 and 33.1, platelets 229, neutrophils 82.7, no bands. BUN 25, creatinine 0.81. MICROBIOLOGY: Blood cultures remain negative. Sputum culture negative. Aspirated pleural fluid cultures negative as well. ANTIMICROBIALS: Patient was started on vancomycin and cefepime. PHYSICAL EXAMINATION: GENERAL: This is a fragile, chronically ill-appearing, elderly woman, who is lethargic and in no distress. HEENT: Head atraumatic, normocephalic. Sclerae anicteric. Buccal mucosa dry. NECK: Supple. CHEST: Rise symmetrical. Breath sounds diminished at the bases. HEART: S1, S2. ABDOMEN: Soft. Bowel sounds present. EXTREMITIES: With trace edema. ASSESSMENT: 1. Sepsis with fevers and leukocytosis, possibly ongoing aspiration. 2. Exudative pleural effusions, status post thoracentesis on 04/27, so far fluid cultures being negative. 3. Chronic encephalopathy. 4. Dysphagia. 5. Diabetes and hypertension. PLAN: Patient remains hemodynamically stable. Status post fever yesterday, had been afebrile overnight. Now with increased leukocytosis. She was started on broad-spectrum antibiotics, which we are going to continue. Continue anti-aspiration measures. Follow chest x-ray in a.m. Dictated By: Jack Dumont NP /lexis/alexander /Document#: [id number]
--- NOTE | 2017-04-30 10:41 | PN ---
Date/Time of Note Date/Time of Note DATE: 04/30/17 TIME: 10:41 Assessment/Plan VTE Prophylaxis VTE Prophylaxis Intervention: SCD's Lines/Catheters IV [facility] (from [facility]): Peripheral IV Urinary Cath still in place: No Assessment/Plan Chief Complaint/Hosp Course 1. Dysphagia with inadequate intake. Rule out GI etiology -For video swallow study attempt again today -We will plan for EGD after repeat swallow studies completed as patient may also require a G-tube based on the study findings. -Continue with multivitamin, vit C, folate supplementation 2. Parkinson's disease. -Neurology evaluation appreciated. On Sinemet and recommend outpatient follow- up. 3. Mild the pleural effusion versus exudate. Now resolving. -Continue antibiotics. Follow-up final culture studies. -F/u pulmonary and ID recs 4. 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 -Vascular eval appreciated and no inpatient work-up indicated,. 5. Severe pulmonary hypertension on TTE. Stable. -Not a candidate for any endothelial receptor antagonist or phosphodiesterase inhibitors 6. Anemia likely chronic. H&H stable. Will monitor. 7. Constipation: Resolved 8. Cachexia. For repeat speech eval today and will consider G-tube placement if indicated. 9. Elderly dementia. Supportive care. Plan: Patient has been not eating over the past 24-48 hours adequately even though she has passed for a pureed diet per initial speech therapy eval. I had a lengthy discussion with patient's daughter using Cambodian interpretation today. The plan is to repeat speech therapy eval either a video assisted eval if patient is cooperative or bedside speech therapy re-eval as patient is noticed with poor intake over the last 24-48 hours. Patient to be proceed with EGD versus EGD with G-tube placement based on repeat swallow study findings. We will proceed with a DNR status which is what patient's family opted for. I also discussed about a assisted facility placement which they refuse at this time and would like to take care of her mother at home with 24 hour assembling fabricator service. Will also have palliative care consult Case discussed with Problems: Subjective 24 Hr Interval Summary Free Text/Dictation Patient with low-grade fever. Video swallow eval was canceled due to patient movement and inability to perform exam. Patient has not been eating well. Exam/Review of Systems Vital Signs Vitals Vital Signs Date Time Temp Pulse Resp B/P Pulse Ox O2 Delivery O2 Flow Rate FiO2 04/30/17 08:11 99.8 96 20 143/89 95 04/29/17 21:20 Nasal Cannula 2.0 Intake and Output 04/29/17 04/29/17 04/30/17 15:00 23:00 07:00 Intake Total 170 ml 680 ml Balance 170 ml 680 ml Exam General: Frail looking cachectic elderly female who also appears demented and confused, not in any acute distress . HEENT: Normocephalic, Atraumatic, No laceration or hematoma; Eyes: PEERL, Conjunctiva clear, Anicteric sclera Neck: Supple without any lymphadenopathy, nontender, no JVD, no carotid bruits, trachea midline, no thyromegaly Cardiac: S1, S2 auscultated, regular rhythm and rate, no mumurs or gallop Pulmonary: Normal respiratory effort. Chest clear to auscultation bilaterally, no adventitious breath sounds GI: Abdomen normal to inspection. Soft, non tender, non- distended, no masses, no rebound tenderness or guarding. Bowel sounds active on all four quadrants Genitourinary: Deferred Extremities: With tremors mostly on fingers. +Rigidity. no cyanosis, clubbing , or edema. Pulses [2+] bilaterally. Full ROM on all four extremities. No focal weakness appreciated. Neurologic:Awake/Confused.?Dementia With dysarthria. intact sensation. Skin: Clean,dry, and intact. No ecchymosis, no rashes, or lesions Results Result Diagram: 04/29/17 1004 04/29/17 1004 Results 24 hrs Laboratory Tests Test 04/29/17 12:08 04/29/17 17:40 04/29/17 22:47 04/30/17 01:05 Bedside Glucose 264 H 261 H 267 H 102 Test 04/30/17 06:01 04/30/17 07:56 Bedside Glucose 88 93 Medications Medications Current Medications Enoxaparin Sodium (Lovenox) 30 mg DAILY SC Last administered on 04/30/17 08:47 ; Admin Dose 30 MG; Start 04/26/17 at 16:00 Lorazepam (Ativan) 0.5 mg Q8H PRN PO ANXIETY Last administered on 04/29/17 12: 26; Admin Dose 0.5 MG; Start 04/26/17 at 21:00 Zolpidem Tartrate (Ambien) 5 mg HS PRN PO INSOMNIA Last administered on 23:21; Admin Dose 5 MG; Start 04/27/17 at 03:00 Acetaminophen (Tylenol Tab) 650 mg Q4H PRN PO PAIN AND OR ELEVATED TEMP Last administered on 04/30/17 08:45; Admin Dose 650 MG; Start 04/27/17 at 08:30 Ondansetron HCl (Zofran Inj) 4 mg Q6H PRN IV NAUSEA AND/OR VOMITING Last administered on 04/28/17 09:07; Admin Dose 4 MG; Start 04/27/17 at 13:30 Famotidine (Pepcid Iv) 20 mg DAILY IV Last administered on 04/30/17 08:45; Admin Dose 20 MG; Start 04/28/17 at 09:00 Bisacodyl (Dulcolax Supp) 10 mg DAILY PRN [place] PRN Last administered on 05:07; Admin Dose 10 MG; Start 04/28/17 at 05:00 Lactulose (Lactulose Enema) 100 ml Q6 [place] Last administered on 04/28/17 06:06; Admin Dose 100 ML; Start 04/28/17 at 06:00 Senna 5 ml 5 ml BID PO Last administered on 04/30/17 08:45; Admin Dose 5 ML; Start 04/28/17 at 21:00 Cefepime HCl 50 ml @ 100 mls/hr Q24H IVPB Last administered on 04/29/17 16:39 ; Admin Dose 100 MLS/HR; Start 04/28/17 at 16:15 Vancomycin HCl (Vancocin) 100 ml @ 100 mls/hr Q24H IVPB Last administered on 17:36; Admin Dose 100 MLS/HR; Start 04/29/17 at 17:00 Polyethylene Glycol (Miralax) 17 gm BID PO Last administered on 04/30/17 08:46 ; Admin Dose 17 GM; Start 04/28/17 at 21:00 Morphine Sulfate (morphine) 2 mg Q4H PRN IV PAIN Last administered on 02:49; Admin Dose 2 MG; Start 04/29/17 at 03:00 Acetaminophen/ Hydrocodone Bitart 1 tab 1 tab Q6H PRN PO PAIN; Start 04/29/17 at 03:00 Dextrose/Sodium Chloride (D5-1/2ns) 1,000 ml @ 40 mls/hr Q24H IV Last administered on 04/29/17 11:07; Admin Dose 40 MLS/HR; Start 04/29/17 at 10:30 Ascorbic Acid (Vitamin C) 500 mg DAILY PO Last administered on 04/30/17 08:45 ; Admin Dose 500 MG; Start 04/30/17 at 09:00 Folic Acid (Folic Acid) 1 mg DAILY PO Last administered on 04/30/17 08:45; Admin Dose 1 MG; Start 04/30/17 at 09:00 Multivitamins Therapeutic (Theragran) 1 tab DAILY PO Last administered on 08:45; Admin Dose 1 TAB; Start 04/30/17 at 09:00 Miscellaneous Information (*Rx Drug Level Order Reminder*) VANCO TROUGH @ 1, 600 ON... ONCE ONCE XX ; Start 04/30/17 at 16:00; Stop 04/30/17 at 16:01 Acetaminophen (Tylenol Supp) 650 mg Q4H PRN GA PAIN OR TEMP ABOVE 38C Last administered on 04/29/17 21:09; Admin Dose 650 MG; Start 04/29/17 at 20:30 Diagnostic Test (Pha) (Accu-Chek) 1 ea Q6 XX ; Start 04/29/17 at 20:30 Diagnostic Test (Pha) (Accu-Chek) 1 ea 02 XX ; Start 04/30/17 at 02:00 Insulin Aspart (Novolog Insulin Pen) NOVOLOG *MODERATE* ALGORI... Q6 SC Last administered on 04/29/17 22:56; Admin Dose 8 UNIT; Start 04/29/17 at 20:30 Miscellaneous Information 1 ea NOTE XX ; Start 04/29/17 at 20:30 Glucose (Glutose) 15 gm Q15M PRN PO DECREASED GLUCOSE; Start 04/29/17 at 20:30 Glucose (Glutose) 22.5 gm Q15M PRN PO DECREASED GLUCOSE; Start 04/29/17 at 20: 30 Dextrose (D50w Syringe) 25 ml Q15M PRN IV DECREASED GLUCOSE; Start 04/29/17 at 20:30 Dextrose (D50w Syringe) 50 ml Q15M PRN IV DECREASED GLUCOSE; Start 04/29/17 at 20:30 Glucagon (Glucagen) 1 mg Q15M PRN IM DECREASED GLUCOSE; Start 04/29/17 at 20:30 Glucose (Glutose) 15 gm Q15M PRN BUCCAL DECREASED GLUCOSE; Start 04/29/17 at 20 :30 Metoprolol Tartrate (Lopressor) 25 mg BID PO Last administered on 04/30/17 08: 46; Admin Dose 25 MG; Start 04/29/17 at 21:01 Insulin Glargine (Lantus) 10 unit DAILY@20 SC Last administered on 04/29/17 22 :53; Admin Dose 10 UNIT; Start 04/29/17 at 21:30 DANIEL SILVEIRA NP Apr 30, 2017 10:41
--- NOTE | 2017-04-30 10:57 | RADRPT ---
PROCEDURE: XR Chest. CLINICAL INDICATION: r/o pna TECHNIQUE: Single frontal view of the chest was obtained. COMPARISON: Chest x-ray from 04/27/2017 FINDINGS: There is stable mild cardiomegaly and mild congestion on a background of chronic / senescent changes . The aortic arch is calcified. There is a small left pleural effusion which has minimally decreased. There is decreased osseous mineralization. IMPRESSION: Stable mild cardiomegaly and mild congestion on a background of chronic / senescent changes. Small left pleural effusion which has mildly decreased. No definite focal infiltrates are identified. RPTAT: EE Physician Naresh Date Time Electronically viewed and signed by Paul Willard Physician on 04/30/2017 08:15 RA/
--- NOTE | 2017-04-30 12:13 | CONS ---
Date/Time of Note Date/Time of Note DATE: 04/30/17 TIME: 12:08 Consult Date/Type/Reason Admit Date/Time Apr 26, 2017 at 13:44 Initial Consult Date 04/28/17 Type of Consultation: ID Ordering Provider: TYRONE TEMPLE MD Objective Vital Signs Date Time Temp Pulse Resp B/P Pulse Ox O2 Delivery O2 Flow Rate FiO2 04/30/17 08:11 99.8 96 20 143/89 95 04/29/17 21:20 Nasal Cannula 2.0 Intake and Output 04/29/17 04/29/17 04/30/17 15:00 23:00 07:00 Intake Total 170 ml 680 ml Balance 170 ml 680 ml Results/Medications Result Diagram: 04/29/17 1004 04/29/17 1004 Results 24 hrs Laboratory Tests Test 04/29/17 17:40 04/29/17 22:47 04/30/17 01:05 04/30/17 06:01 Bedside Glucose 261 H 267 H 102 88 Test 04/30/17 07:56 Bedside Glucose 93 Medications Current Medications Enoxaparin Sodium (Lovenox) 30 mg DAILY SC Last administered on 04/30/17 08:47 ; Admin Dose 30 MG; Start 04/26/17 at 16:00 Lorazepam (Ativan) 0.5 mg Q8H PRN PO ANXIETY Last administered on 04/29/17 12: 26; Admin Dose 0.5 MG; Start 04/26/17 at 21:00 Zolpidem Tartrate (Ambien) 5 mg HS PRN PO INSOMNIA Last administered on 23:21; Admin Dose 5 MG; Start 04/27/17 at 03:00 Acetaminophen (Tylenol Tab) 650 mg Q4H PRN PO PAIN AND OR ELEVATED TEMP Last administered on 04/30/17 08:45; Admin Dose 650 MG; Start 04/27/17 at 08:30 Ondansetron HCl (Zofran Inj) 4 mg Q6H PRN IV NAUSEA AND/OR VOMITING Last administered on 04/28/17 09:07; Admin Dose 4 MG; Start 04/27/17 at 13:30 Famotidine (Pepcid Iv) 20 mg DAILY IV Last administered on 04/30/17 08:45; Admin Dose 20 MG; Start 04/28/17 at 09:00 Bisacodyl (Dulcolax Supp) 10 mg DAILY PRN [place] PRN Last administered on 05:07; Admin Dose 10 MG; Start 04/28/17 at 05:00 Lactulose (Lactulose Enema) 100 ml Q6 [place] Last administered on 04/28/17 06:06; Admin Dose 100 ML; Start 04/28/17 at 06:00 Senna 5 ml 5 ml BID PO Last administered on 04/30/17 08:45; Admin Dose 5 ML; Start 04/28/17 at 21:00 Cefepime HCl 50 ml @ 100 mls/hr Q24H IVPB Last administered on 04/29/17 16:39 ; Admin Dose 100 MLS/HR; Start 04/28/17 at 16:15 Vancomycin HCl (Vancocin) 100 ml @ 100 mls/hr Q24H IVPB Last administered on 17:36; Admin Dose 100 MLS/HR; Start 04/29/17 at 17:00 Polyethylene Glycol (Miralax) 17 gm BID PO Last administered on 04/30/17 08:46 ; Admin Dose 17 GM; Start 04/28/17 at 21:00 Morphine Sulfate (morphine) 2 mg Q4H PRN IV PAIN Last administered on 02:49; Admin Dose 2 MG; Start 04/29/17 at 03:00 Acetaminophen/ Hydrocodone Bitart 1 tab 1 tab Q6H PRN PO PAIN; Start 04/29/17 at 03:00 Dextrose/Sodium Chloride (D5-1/2ns) 1,000 ml @ 40 mls/hr Q24H IV Last administered on 04/29/17 11:07; Admin Dose 40 MLS/HR; Start 04/29/17 at 10:30 Ascorbic Acid (Vitamin C) 500 mg DAILY PO Last administered on 04/30/17 08:45 ; Admin Dose 500 MG; Start 04/30/17 at 09:00 Folic Acid (Folic Acid) 1 mg DAILY PO Last administered on 04/30/17 08:45; Admin Dose 1 MG; Start 04/30/17 at 09:00 Multivitamins Therapeutic (Theragran) 1 tab DAILY PO Last administered on 08:45; Admin Dose 1 TAB; Start 04/30/17 at 09:00 Miscellaneous Information (*Rx Drug Level Order Reminder*) VANCO TROUGH @ 1, 600 ON... ONCE ONCE XX ; Start 04/30/17 at 16:00; Stop 04/30/17 at 16:01 Acetaminophen (Tylenol Supp) 650 mg Q4H PRN [place] PAIN OR TEMP ABOVE 38C Last administered on 04/29/17 21:09; Admin Dose 650 MG; Start 04/29/17 at 20:30 Diagnostic Test (Pha) (Accu-Chek) 1 ea Q6 XX ; Start 04/29/17 at 20:30 Diagnostic Test (Pha) (Accu-Chek) 1 ea 02 XX ; Start 04/30/17 at 02:00 Insulin Aspart (Novolog Insulin Pen) NOVOLOG *MODERATE* ALGORI... Q6 SC Last administered on 04/29/17 22:56; Admin Dose 8 UNIT; Start 04/29/17 at 20:30 Miscellaneous Information 1 ea NOTE XX ; Start 04/29/17 at 20:30 Glucose (Glutose) 15 gm Q15M PRN PO DECREASED GLUCOSE; Start 04/29/17 at 20:30 Glucose (Glutose) 22.5 gm Q15M PRN PO DECREASED GLUCOSE; Start 04/29/17 at 20: 30 Dextrose (D50w Syringe) 25 ml Q15M PRN IV DECREASED GLUCOSE; Start 04/29/17 at 20:30 Dextrose (D50w Syringe) 50 ml Q15M PRN IV DECREASED GLUCOSE; Start 04/29/17 at 20:30 Glucagon (Glucagen) 1 mg Q15M PRN IM DECREASED GLUCOSE; Start 04/29/17 at 20:30 Glucose (Glutose) 15 gm Q15M PRN BUCCAL DECREASED GLUCOSE; Start 04/29/17 at 20 :30 Metoprolol Tartrate (Lopressor) 25 mg BID PO Last administered on 04/30/17 08: 46; Admin Dose 25 MG; Start 04/29/17 at 21:01 Insulin Glargine (Lantus) 10 unit DAILY@20 SC Last administered on 04/29/17 22 :53; Admin Dose 10 UNIT; Start 04/29/17 at 21:30 Assessment/Plan Chief Complaint/Hosp Course IMPRESSION AND PLAN: 1. Likely chronic aspiration. 2. Pleural effusion likely secondary to above. 3. Advanced Parkinson's disease. 4. Dysphagia. Recommend: 1. Continue current antibiotics pending further culture results. 2. Aspiration precautions. 3. Supplemental O2. DNR/DNI noted. Consider discharge to shelter facility to complete antibiotics Problems: MONIKA SANTIAGO MD, [facility] Apr 30, 2017 12:13
[2017-04-30] MEDS: DEXTROSE 5%-0.45% NACL 1,000 ML IV SCH (12:37)
[2017-04-30] MEDS: ACETAMINOPHEN 650 MG SUPP PR PRN (14:34)
--- NOTE | 2017-04-30 14:42 | CONS ---
Date/Time of Note Date/Time of Note DATE: 04/30/17 TIME: 14:40 Assessment/Plan Assessment/Plan Chief Complaint/Hosp Course SUBJECTIVE: No acute changes, sleeping, no fevers. Family member at bedside MICROBIOLOGY: Blood cultures remain negative. Sputum culture negative. Aspirated pleural fluid cultures negative as well. ANTIMICROBIALS: Vancomycin and cefepime. PHYSICAL EXAMINATION: GENERAL: This is a fragile, chronically ill-appearing, elderly woman, who is lethargic and in no distress. HEENT: Head atraumatic, normocephalic. Sclerae anicteric. Buccal mucosa dry. NECK: Supple. CHEST: Rise symmetrical. Breath sounds diminished at the bases. HEART: S1, S2. ABDOMEN: Soft. Bowel sounds present. EXTREMITIES: With trace edema. ASSESSMENT: 1. Sepsis with fevers and leukocytosis, possibly ongoing aspiration. 2. Exudative pleural effusions, status post thoracentesis on 04/27, so far fluid cultures being negative. 3. Chronic encephalopathy. 4. Dysphagia. 5. Diabetes and hypertension. PLAN: Patient remains stable. Continue abx, aspiration precautions, f/u labs/ cxr in am DW staff/family Problems: Consultation Date/Type/Reason Admit Date/Time Apr 26, 2017 at 13:44 Initial Consult Date 04/28/17 Type of Consultation: ID Referring Provider: TYRONE TEMPLE MD Exam/Review of Systems Vital Signs Vitals Vital Signs Date Time Temp Pulse Resp B/P Pulse Ox O2 Delivery O2 Flow Rate FiO2 04/30/17 08:11 99.8 96 20 143/89 95 04/29/17 21:20 Nasal Cannula 2.0 Intake and Output 04/29/17 04/29/17 04/30/17 15:00 23:00 07:00 Intake Total 170 ml 680 ml Balance 170 ml 680 ml Results Result Diagram: 04/29/17 1004 04/29/17 1004 Results 24 hrs Laboratory Tests Test 04/29/17 17:40 04/29/17 22:47 04/30/17 01:05 04/30/17 06:01 Bedside Glucose 261 H 267 H 102 88 Test 04/30/17 07:56 04/30/17 12:11 Bedside Glucose 93 165 Medications Medications Current Medications Enoxaparin Sodium (Lovenox) 30 mg DAILY SC Last administered on 04/30/17t 08:47 ; Admin Dose 30 MG; Start 04/26/17 at 16:00 Lorazepam (Ativan) 0.5 mg Q8H PRN PO ANXIETY Last administered on 04/29/17 12: 26; Admin Dose 0.5 MG; Start 04/26/17 at 21:00 Zolpidem Tartrate (Ambien) 5 mg HS PRN PO INSOMNIA Last administered on 23:21; Admin Dose 5 MG; Start 04/27/17 at 03:00 Acetaminophen (Tylenol Tab) 650 mg Q4H PRN PO PAIN AND OR ELEVATED TEMP Last administered on 04/30/17 08:45; Admin Dose 650 MG; Start 04/27/17 at 08:30 Ondansetron HCl (Zofran Inj) 4 mg Q6H PRN IV NAUSEA AND/OR VOMITING Last administered on 04/28/17 09:07; Admin Dose 4 MG; Start 04/27/17 at 13:30 Famotidine (Pepcid Iv) 20 mg DAILY IV Last administered on 04/30/17 08:45; Admin Dose 20 MG; Start 04/28/17 at 09:00 Bisacodyl (Dulcolax Supp) 10 mg DAILY PRN [place] PRN Last administered on 05:07; Admin Dose 10 MG; Start 04/28/17 at 05:00 Lactulose (Lactulose Enema) 100 ml Q6 [place] Last administered on 04/28/17 06:06; Admin Dose 100 ML; Start 04/28/17 at 06:00 Senna 5 ml 5 ml BID PO Last administered on 04/30/17 08:45; Admin Dose 5 ML; Start 04/28/17 at 21:00 Cefepime HCl 50 ml @ 100 mls/hr Q24H IVPB Last administered on 04/29/17 16:39 ; Admin Dose 100 MLS/HR; Start 04/28/17 at 16:15 Vancomycin HCl (Vancocin) 100 ml @ 100 mls/hr Q24H IVPB Last administered on 17:36; Admin Dose 100 MLS/HR; Start 04/29/17 at 17:00 Polyethylene Glycol (Miralax) 17 gm BID PO Last administered on 04/30/17 08:46 ; Admin Dose 17 GM; Start 04/28/17 at 21:00 Morphine Sulfate (morphine) 2 mg Q4H PRN IV PAIN Last administered on 02:49; Admin Dose 2 MG; Start 04/29/17 at 03:00 Acetaminophen/ Hydrocodone Bitart 1 tab 1 tab Q6H PRN PO PAIN; Start 04/29/17 at 03:00 Dextrose/Sodium Chloride (D5-1/2ns) 1,000 ml @ 40 mls/hr Q24H IV Last administered on 04/30/17 12:37; Admin Dose 40 MLS/HR; Start 04/29/17 at 10:30 Ascorbic Acid (Vitamin C) 500 mg DAILY PO Last administered on 04/30/17 08:45 ; Admin Dose 500 MG; Start 04/30/17 at 09:00 Folic Acid (Folic Acid) 1 mg DAILY PO Last administered on 04/30/17 08:45; Admin Dose 1 MG; Start 04/30/17 at 09:00 Multivitamins Therapeutic (Theragran) 1 tab DAILY PO Last administered on 08:45; Admin Dose 1 TAB; Start 04/30/17 at 09:00 Miscellaneous Information (*Rx Drug Level Order Reminder*) VANCO TROUGH @ 1, 600 ON... ONCE ONCE XX ; Start 04/30/17 at 16:00; Stop 04/30/17 at 16:01 Acetaminophen (Tylenol Supp) 650 mg Q4H PRN [place] PAIN OR TEMP ABOVE 38C Last administered on 04/30/17 14:34; Admin Dose 650 MG; Start 04/29/17 at 20:30 Diagnostic Test (Pha) (Accu-Chek) 1 ea Q6 XX ; Start 04/29/17 at 20:30 Diagnostic Test (Pha) (Accu-Chek) 1 ea 02 XX ; Start 04/30/17 at 02:00 Insulin Aspart (Novolog Insulin Pen) NOVOLOG *MODERATE* ALGORI... Q6 SC Last administered on 04/30/17 12:36; Admin Dose 2 UNIT; Start 04/29/17 at 20:30 Miscellaneous Information 1 ea NOTE XX ; Start 04/29/17 at 20:30 Glucose (Glutose) 15 gm Q15M PRN PO DECREASED GLUCOSE; Start 04/29/17 at 20:30 Glucose (Glutose) 22.5 gm Q15M PRN PO DECREASED GLUCOSE; Start 04/29/17 at 20: 30 Dextrose (D50w Syringe) 25 ml Q15M PRN IV DECREASED GLUCOSE; Start 04/29/17 at 20:30 Dextrose (D50w Syringe) 50 ml Q15M PRN IV DECREASED GLUCOSE; Start 04/29/17 at 20:30 Glucagon (Glucagen) 1 mg Q15M PRN IM DECREASED GLUCOSE; Start 04/29/17 at 20:30 Glucose (Glutose) 15 gm Q15M PRN BUCCAL DECREASED GLUCOSE; Start 04/29/17 at 20 :30 Metoprolol Tartrate (Lopressor) 25 mg BID PO Last administered on 04/30/17 08: 46; Admin Dose 25 MG; Start 04/29/17 at 21:01 Insulin Glargine (Lantus) 10 unit DAILY@20 SC Last administered on 04/29/17 22 :53; Admin Dose 10 UNIT; Start 04/29/17 at 21:30 ANTONI MATHEWS NP Apr 30, 2017 14:42
--- NOTE | 2017-04-30 15:10 | PN ---
Date/Time of Note Date/Time of Note DATE: 04/30/17 TIME: 15:08 Assessment/Plan Lines/Catheters IV Catheter Type (from Nrsg): Peripheral IV Rhoades in Place (from Nrsg): No Assessment/Plan Chief Complaint/Hosp Course -Splenic artery aneurysm: It seems the patient has incidental finding of splenic artery aneurysm that was less likely contributing to her abdominal pain on presentation. From a vascular surgery standpoint, we will continue to monitor her aneurysm finding as an outpatient. No immediate intervention at this time. Usual intervention size about 2 cm. -Optimize vascular status (diet, nutrition, exercise, sugar control, antiplatelets). -Discussed findings, plan and management with the patient and the daughter at the bedside with certified building appraiser and they understand. -Thank you for allowing us to partake in the care of your patient. Please call with any questions. Problems: Subjective 24 Hr Interval Summary no new vascular events overnight Exam/Review of Systems Vital Signs Vitals Vital Signs Date Time Temp Pulse Resp B/P Pulse Ox O2 Delivery O2 Flow Rate FiO2 04/30/17 08:11 99.8 96 20 143/89 95 04/29/17 21:20 Nasal Cannula 2.0 Intake and Output 04/29/17 04/29/17 04/30/17 15:00 23:00 07:00 Intake Total 170 ml 680 ml Balance 170 ml 680 ml Exam Free Text/Dictation GENERAL: Awake, not communicative LUNGS: Crackles at the bases. CARDIOVASCULAR: S1, S2 present ABDOMEN: Soft, nontender, nondistended. Bowel sounds positive. EXTREMITIES: Lower extremities reveal palpable femoral pulse. Nonpalpable pedal pulse. Motor and sensory intact. Capillary refill 3 to 4 seconds Results Result Diagram: 04/29/17 1004 04/29/17 1004 BELEN FRIEDMAN MD Apr 30, 2017 15:10
[2017-04-30 16:09] LABS: BASOPHILS % 0.2 % (0.0-2.0); HEMATOCRIT 34.7 % (37.0-47.0); HEMOGLOBIN 11.2 g/dl (12.0-16.0); LYMPHOCYTES # 1.3 10^3/ul (0.8-2.9); LYMPHOCYTES % 10.2 % (15.0-51.0); MEAN CORPUSCULAR HEMOGLOBIN 28.8 pg (29.0-33.0); MEAN CORPUSCULAR HGB CONC 32.3 g/dl (32.0-37.0); MEAN CORPUSCULAR VOLUME 89.2 fl (82.0-101.0); MONOCYTE # 0.7 10^3/ul (0.3-0.9); MONOCYTES % 5.6 % (0.0-11.0); PLATELET COUNT 239 10^3/UL (140-415); RED BLOOD COUNT 3.89 10^6/ul (4.20-5.40); RED CELL DISTRIBUTION WIDTH 13.7 % (11.5-14.5); WHITE BLOOD COUNT 12.4 10^3/ul (4.8-10.8)
--- NOTE | 2017-04-30 16:18 | RADRPT ---
PROCEDURE: Video swallow examination of the esophagus CLINICAL INDICATION: aspiration TECHNIQUE: Real time video fluoroscopy of the lateral neck was performed. The patient was given b arium in multiple different consistencies by the speech pathologist. Fluoroscopy time: 0.3 minute COMPARISON: None. FINDINGS: There is limited evaluation of the trachea and esophagus on the lateral view due to the high positio n of the shoulders. IMPRESSION: Nondiagnostic study, as above. Please refer to the speech pathology notes for more information and recommendations. RPTAT: KK Physician Naresh Date Time Electronically viewed and signed by Physician Naresh on 04/30/2017 16:17 /
[2017-04-30] MEDS: CEFEPIME 1GM/50 ML (PMX) 50 ML IVPB SCH (16:49)
--- NOTE | 2017-04-30 17:11 | CONS ---
Date/Time of Note Date/Time of Note DATE: 04/30/17 TIME: 17:05 Assessment/Plan Assessment/Plan Additional Assessment/Plan Possible atrial flutter versus artifact Preserved ejection fraction Parkinson's Failure to thrive with dysphagia Hypertension Pleural effusion status post thoracentesis -Patient with chest pain as per the family this morning. ECG was significant baseline artifact but appears atrial flutter. Agree with transfer to telemetry. Would obtain serial cardiac enzymes, continue beta-jesus. TSH within normal limits. Check magnesium level. Consultation Date/Type/Reason Admit Date/Time Apr 26, 2017 at 13:44 Type of Consultation: cv Reason for Consultation Arrhythmia Hx of Present Illness This is an 87-year-old female with past medical history of hypertension and diabetes who presented with abdominal pain, lethargy and failure to thrive progressing over the past week. Patient has been undergoing dysphagia workup for possible PEG placement. As per family, this morning, patient with chest pain. Fortunately patient is unable to give history and is currently sleeping. As per the family, patient was complaining of chest discomfort and "her heart hurts". In the afternoon, patient denied any chest discomfort or shortness of breath. ECG was done by the primary team which demonstrated possible arrhythmia for this reason cardiology consultation was requested. As per the family, no history of any cardiac history. 12 point review of systems was performed with all pertinent positives and negatives mentioned above and all else is negative Past Medical History Medical History: hypertension, other (parkinsons) Past Surgical History Past Surgical Hx: noncontributory Family History Significant Family History: no pertinent family hx Social History Alcohol Use: none Smoking Status: Never smoker Drug Use: none Exam/Review of Systems Vital Signs Vitals Vital Signs Date Time Temp Pulse Resp B/P Pulse Ox O2 Delivery O2 Flow Rate FiO2 04/30/17 08:11 99.8 96 20 143/89 95 04/29/17 21:20 Nasal Cannula 2.0 Intake and Output 04/29/17 04/29/17 04/30/17 15:00 23:00 07:00 Intake Total 170 ml 680 ml Balance 170 ml 680 ml Exam Sleeping, contracted, no apparent distress Head: normocephalic Respiratory: other (Coarse breath sounds bilaterally, no wheezing) Cardiovascular: regular rate and rhythm (With occasional irregularities, S1-S2 heard), systolic murmur Gastrointestinal: bowel sounds, non-tender, soft Extremities: edema (Trace) Results Result Diagram: 04/30/17 1601 04/29/17 1004 Results 24 hrs Laboratory Tests Test 04/29/17 17:40 04/29/17 22:47 04/30/17 01:05 04/30/17 06:01 Bedside Glucose 261 H 267 H 102 88 Test 04/30/17 07:56 04/30/17 12:11 04/30/17 16:01 Bedside Glucose 93 165 White Blood Count 12.4 #H Red Blood Count 3.89 L Hemoglobin 11.2 L Hematocrit 34.7 L Mean Corpuscular Volume 89.2 Mean Corpuscular Hemoglobin 28.8 L Mean Corpuscular Hemoglobin Concent 32.3 Red Cell Distribution Width 13.7 Platelet Count 239 Mean Platelet Volume 10.0 Neutrophils % 83.0 H Lymphocytes % 10.2 L Monocytes % 5.6 Eosinophils % 0.0 Basophils % 0.2 Nucleated Red Blood Cells % 0.0 Neutrophils # (Manual) 10 H Lymphocytes # 1.3 Monocytes # 0.7 Eosinophils # 0.0 Basophils # 0.0 Nucleated Red Blood Cells # 0.0 Troponin I 0.025 Vancomycin Level Trough 8.5 L Medications Medications Current Medications Enoxaparin Sodium (Lovenox) 30 mg DAILY SC Last administered on 04/30/17 08:47 ; Admin Dose 30 MG; Start 04/26/17 at 16:00 Lorazepam (Ativan) 0.5 mg Q8H PRN PO ANXIETY Last administered on 04/29/17 12: 26; Admin Dose 0.5 MG; Start 04/26/17 at 21:00 Zolpidem Tartrate (Ambien) 5 mg HS PRN PO INSOMNIA Last administered on 23:21; Admin Dose 5 MG; Start 04/27/17 at 03:00 Acetaminophen (Tylenol Tab) 650 mg Q4H PRN PO PAIN AND OR ELEVATED TEMP Last administered on 04/30/17 08:45; Admin Dose 650 MG; Start 04/27/17 at 08:30 Ondansetron HCl (Zofran Inj) 4 mg Q6H PRN IV NAUSEA AND/OR VOMITING Last administered on 04/28/17 09:07; Admin Dose 4 MG; Start 04/27/17 at 13:30 Famotidine (Pepcid Iv) 20 mg DAILY IV Last administered on 04/30/17 08:45; Admin Dose 20 MG; Start 04/28/17 at 09:00 Bisacodyl (Dulcolax Supp) 10 mg DAILY PRN [place] PRN Last administered on 05:07; Admin Dose 10 MG; Start 04/28/17 at 05:00 Lactulose (Lactulose Enema) 100 ml Q6 [place] Last administered on 04/28/17 06:06; Admin Dose 100 ML; Start 04/28/17 at 06:00 Senna 5 ml 5 ml BID PO Last administered on 04/30/17 08:45; Admin Dose 5 ML; Start 04/28/17 at 21:00 Cefepime HCl 50 ml @ 100 mls/hr Q24H IVPB Last administered on 04/30/17 16:49 ; Admin Dose 100 MLS/HR; Start 04/28/17 at 16:15 Vancomycin HCl (Vancocin) 100 ml @ 100 mls/hr Q24H IVPB Last administered on 17:36; Admin Dose 100 MLS/HR; Start 04/29/17 at 17:00 Polyethylene Glycol (Miralax) 17 gm BID PO Last administered on 04/30/17 08:46 ; Admin Dose 17 GM; Start 04/28/17 at 21:00 Morphine Sulfate (morphine) 2 mg Q4H PRN IV PAIN Last administered on 02:49; Admin Dose 2 MG; Start 04/29/17 at 03:00 Acetaminophen/ Hydrocodone Bitart 1 tab 1 tab Q6H PRN PO PAIN; Start 04/29/17 at 03:00 Dextrose/Sodium Chloride (D5-1/2ns) 1,000 ml @ 40 mls/hr Q24H IV Last administered on 04/30/17 12:37; Admin Dose 40 MLS/HR; Start 04/29/17 at 10:30 Ascorbic Acid (Vitamin C) 500 mg DAILY PO Last administered on 04/30/17 08:45 ; Admin Dose 500 MG; Start 04/30/17 at 09:00 Folic Acid (Folic Acid) 1 mg DAILY PO Last administered on 04/30/17 08:45; Admin Dose 1 MG; Start 04/30/17 at 09:00 Multivitamins Therapeutic (Theragran) 1 tab DAILY PO Last administered on 08:45; Admin Dose 1 TAB; Start 04/30/17 at 09:00 Acetaminophen (Tylenol Supp) 650 mg Q4H PRN [place] PAIN OR TEMP ABOVE 38C Last administered on 04/30/17 14:34; Admin Dose 650 MG; Start 04/29/17 at 20:30 Diagnostic Test (Pha) (Accu-Chek) 1 ea Q6 XX ; Start 04/29/17 at 20:30 Diagnostic Test (Pha) (Accu-Chek) 1 ea 02 XX ; Start 04/30/17 at 02:00 Insulin Aspart (Novolog Insulin Pen) NOVOLOG *MODERATE* ALGORI... Q6 SC Last administered on 04/30/17 12:36; Admin Dose 2 UNIT; Start 04/29/17 at 20:30 Miscellaneous Information 1 ea NOTE XX ; Start 04/29/17 at 20:30 Glucose (Glutose) 15 gm Q15M PRN PO DECREASED GLUCOSE; Start 04/29/17 at 20:30 Glucose (Glutose) 22.5 gm Q15M PRN PO DECREASED GLUCOSE; Start 04/29/17 at 20: 30 Dextrose (D50w Syringe) 25 ml Q15M PRN IV DECREASED GLUCOSE; Start 04/29/17 at 20:30 Dextrose (D50w Syringe) 50 ml Q15M PRN IV DECREASED GLUCOSE; Start 04/29/17 at 20:30 Glucagon (Glucagen) 1 mg Q15M PRN IM DECREASED GLUCOSE; Start 04/29/17 at 20:30 Glucose (Glutose) 15 gm Q15M PRN BUCCAL DECREASED GLUCOSE; Start 04/29/17 at 20 :30 Metoprolol Tartrate (Lopressor) 25 mg BID PO Last administered on 04/30/17 08: 46; Admin Dose 25 MG; Start 04/29/17 at 21:01 Insulin Glargine (Lantus) 10 unit DAILY@20 SC Last administered on 04/29/17 22 :53; Admin Dose 10 UNIT; Start 04/29/17 at 21:30 Procedures Procedures ECG done today at 1647 appears as atrial flutter at 100 bpm with significant artifact, right bundle branch block Mihir Holcomb DO Apr 30, 2017 17:10
[2017-04-30] MEDS: VANCOMYCIN 500MG/NS (PMX) 100 ML IVPB SCH (17:54)
[2017-04-30] MEDS ORDERED: INSULIN GLARGINE [LANtus] 3 ML PEN SC SCH (20:00)
[2017-04-30] MEDS: INSULIN GLARGINE [LANtus] 3 ML PEN SC SCH (21:55)
[2017-05-01] VITALS (14 sets, daily range): BP systolic 134–164; BP diastolic 66–81; PULSE 69–105; RESP 18–20
[2017-05-01] MEDS: ACCU-CHEK XX SCH ×5 (02:00→18:00)
[2017-05-01] MEDS: INSULIN ASPART [NOVOLOG] 3 ML PEN SC SCH ×4 (05:53→17:56)
[2017-05-01 07:50] LABS: BASOPHILS % 0.2 % (0.0-2.0); EOSINOPHILS % 0.1 % (0.0-7.0); HEMATOCRIT 31.7 % (37.0-47.0); HEMOGLOBIN 10.2 g/dl (12.0-16.0); LYMPHOCYTES # 1.5 10^3/ul (0.8-2.9); LYMPHOCYTES % 13.8 % (15.0-51.0); MEAN CORPUSCULAR HEMOGLOBIN 28.3 pg (29.0-33.0); MEAN CORPUSCULAR HGB CONC 32.2 g/dl (32.0-37.0); MEAN CORPUSCULAR VOLUME 88.1 fl (82.0-101.0); MEAN PLATELET VOLUME 9.9 fl (7.4-10.4); MONOCYTE # 0.7 10^3/ul (0.3-0.9); MONOCYTES % 6.4 % (0.0-11.0); NEUTROPHILS % 78.2 % (39.0-77.0); PLATELET COUNT 228 10^3/UL (140-415); RED CELL DISTRIBUTION WIDTH 14.1 % (11.5-14.5); WHITE BLOOD COUNT 11.2 10^3/ul (4.8-10.8)
[2017-05-01] MEDS: FOLIC ACID 1 MG TAB PO SCH (08:58)
[2017-05-01] MEDS: MULTIVITAMINS THERAPEUTIC TAB PO SCH (08:58)
[2017-05-01] MEDS: POLYETHYLENE GLYCOL 17 GM PACKET PO SCH ×2 (08:58→21:00)
[2017-05-01] MEDS: ASCORBIC ACID 500 MG TAB PO SCH (08:58)
[2017-05-01] MEDS: FAMOTIDINE 20 MG TAB PO SCH (08:58)
[2017-05-01] MEDS: METOPROLOL 25 MG TAB PO SCH ×2 (08:59→21:24)
[2017-05-01] MEDS: SENNA (PO SYG) PO SCH ×2 (09:00→21:24)
[2017-05-01] MEDS: ENOXAPARIN 30 MG/0.3 ML SYG SC SCH (09:02)
[2017-05-01 09:17] LABS: POTASSIUM 2.7 mmol/L (3.5-5.1)
[2017-05-01 09:31] LABS: CALCIUM 9.2 mg/dl (8.4-10.2); CREATININE 0.52 mg/dl (0.44-1.00); MAGNESIUM 1.2 mg/dl (1.7-2.5); PHOSPHORUS 2.1 mg/dl (2.5-4.9)
--- NOTE | 2017-05-01 09:56 | PN ---
Date/Time of Note Date/Time of Note DATE: 05/01/17 TIME: 09:56 Assessment/Plan VTE Prophylaxis VTE Prophylaxis Intervention: SCD's Lines/Catheters IV Catheter Type (from [facility]): Peripheral IV Urinary Cath still in place: No Assessment/Plan Chief Complaint/Hosp Course 1. Dysphagia with failure to thrive. Failed video swallow eval with recommendation of artificial means of nutrition. -GI consult for EGD with PEG placement -Continue with multivitamin, vit C, folate supplementation 2. Parkinson's disease. -Neurology evaluation appreciated. On Sinemet and recommend outpatient follow- up. 3. Mild the pleural effusion versus exudate. Resolved. -Continue antibiotics. Follow-up final culture studies. -F/u pulmonary and ID recs 4. 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 -Vascular eval appreciated and no inpatient work-up indicated,. 5. Severe pulmonary hypertension on TTE. Stable. -Not a candidate for any endothelial receptor antagonist or phosphodiesterase inhibitors 6. Anemia likely chronic. H&H stable. Will monitor. 7. Constipation: Resolved 8. Cachexia. Recommended G-tube for nutritional support. 9. Elderly dementia. Supportive care. Plan: Continue DNR status. GI follow-up for EGD with PEG placement. Discharge planning once G-tube is placed and patient has been started on a diet. Of note , family refused snf home at this time and wants to take patient home once workup is completed. Case discussed with Problems: Subjective 24 Hr Interval Summary Free Text/Dictation There has been no reported chest pain, palpitation or other discomfort. Patient has been in sinus rhythm. Exam/Review of Systems Vital Signs Vitals Vital Signs Date Time Temp Pulse Resp B/P Pulse Ox O2 Delivery O2 Flow Rate FiO2 05/01/17 08:05 74 05/01/17 07:33 98.0 18 164/81 99 05/01/17 04:00 Nasal Cannula 3.0 Exam General: Frail looking cachectic elderly female who also appears demented and confused, not in any acute distress . HEENT: Normocephalic, Atraumatic, No laceration or hematoma; Eyes: PEERL, Conjunctiva clear, Anicteric sclera Neck: Supple without any lymphadenopathy, nontender, no JVD, no carotid bruits, trachea midline, no thyromegaly Cardiac: S1, S2 auscultated, regular rhythm and rate, no mumurs or gallop Pulmonary: Normal respiratory effort. Chest clear to auscultation bilaterally, no adventitious breath sounds GI: Abdomen normal to inspection. Soft, non tender, non- distended, no masses, no rebound tenderness or guarding. Bowel sounds active on all four quadrants Genitourinary: Deferred Extremities: With tremors mostly on fingers. +Rigidity. no cyanosis, clubbing , or edema. Pulses [2+] bilaterally. Full ROM on all four extremities. No focal weakness appreciated. Neurologic:Awake/Confused.?Dementia With dysarthria. intact sensation. Skin: Clean,dry, and intact. No ecchymosis, no rashes, or lesions Results Result Diagram: 05/01/17 0635 05/01/17 0635 Results 24 hrs Laboratory Tests Test 04/30/17 12:11 04/30/17 16:01 04/30/17 17:40 04/30/17 21:40 Bedside Glucose 165 223 H 94 White Blood Count 12.4 #H Red Blood Count 3.89 L Hemoglobin 11.2 L Hematocrit 34.7 L Mean Corpuscular Volume 89.2 Mean Corpuscular Hemoglobin 28.8 L Mean Corpuscular Hemoglobin Concent 32.3 Red Cell Distribution Width 13.7 Platelet Count 239 Mean Platelet Volume 10.0 Neutrophils % 83.0 H Lymphocytes % 10.2 L Monocytes % 5.6 Eosinophils % 0.0 Basophils % 0.2 Nucleated Red Blood Cells % 0.0 Neutrophils # (Manual) 10 H Lymphocytes # 1.3 Monocytes # 0.7 Eosinophils # 0.0 Basophils # 0.0 Nucleated Red Blood Cells # 0.0 Troponin I 0.025 Vancomycin Level Trough 8.5 L Test 04/30/17 22:22 05/01/17 00:55 05/01/17 05:51 05/01/17 06:35 Troponin I 0.027 0.024 Bedside Glucose 87 92 White Blood Count 11.2 H Red Blood Count 3.60 L Hemoglobin 10.2 L Hematocrit 31.7 L Mean Corpuscular Volume 88.1 Mean Corpuscular Hemoglobin 28.3 L Mean Corpuscular Hemoglobin Concent 32.2 Red Cell Distribution Width 14.1 Platelet Count 228 Mean Platelet Volume 9.9 Neutrophils % 78.2 H Lymphocytes % 13.8 L Monocytes % 6.4 Eosinophils % 0.1 Basophils % 0.2 Nucleated Red Blood Cells % 0.0 Neutrophils # (Manual) 9 H Lymphocytes # 1.5 Monocytes # 0.7 Eosinophils # 0.0 Basophils # 0.0 Nucleated Red Blood Cells # 0.0 Sodium Level 138 Potassium Level 2.7 *L Chloride Level 95 L Carbon Dioxide Level 34 H Anion Gap 12 Blood Urea Nitrogen 12 # Creatinine 0.52 Glucose Level 79 # Calcium Level 9.2 Phosphorus Level 2.1 L Magnesium Level 1.2 L Medications Medications Current Medications Enoxaparin Sodium (Lovenox) 30 mg DAILY SC Last administered on 05/01/17 09:02 ; Admin Dose 30 MG; Start 04/26/17 at 16:00 Lorazepam (Ativan) 0.5 mg Q8H PRN PO ANXIETY Last administered on 04/29/17 12: 26; Admin Dose 0.5 MG; Start 04/26/17 at 21:00 Zolpidem Tartrate (Ambien) 5 mg HS PRN PO INSOMNIA Last administered on 23:21; Admin Dose 5 MG; Start 04/27/17 at 03:00 Acetaminophen (Tylenol Tab) 650 mg Q4H PRN PO PAIN AND OR ELEVATED TEMP Last administered on 04/30/17 08:45; Admin Dose 650 MG; Start 04/27/17 at 08:30 Ondansetron HCl (Zofran Inj) 4 mg Q6H PRN IV NAUSEA AND/OR VOMITING Last administered on 04/28/17 09:07; Admin Dose 4 MG; Start 04/27/17 at 13:30 Bisacodyl (Dulcolax Supp) 10 mg DAILY PRN [place] PRN Last administered on 05:07; Admin Dose 10 MG; Start 04/28/17 at 05:00 Senna 5 ml 5 ml BID PO Last administered on 05/01/17 09:00; Admin Dose 5 ML; Start 04/28/17 at 21:00 Cefepime HCl (Maxipime 1gm/50 ml (Pmx)) 50 ml @ 100 mls/hr Q24H IVPB Last administered on 04/30/17 16:49; Admin Dose 100 MLS/HR; Start 04/28/17 at 16:15 Polyethylene Glycol (Miralax) 17 gm BID PO Last administered on 05/01/17 08:58 ; Admin Dose 17 GM; Start 04/28/17 at 21:00 Morphine Sulfate (morphine) 2 mg Q4H PRN IV PAIN Last administered on 02:49; Admin Dose 2 MG; Start 04/29/17 at 03:00 Acetaminophen/ Hydrocodone Bitart 1 tab 1 tab Q6H PRN PO PAIN; Start 04/29/17 at 03:00 Dextrose/Sodium Chloride (D5-1/2ns) 1,000 ml @ 40 mls/hr Q24H IV Last administered on 04/30/17 12:37; Admin Dose 40 MLS/HR; Start 04/29/17 at 10:30 Ascorbic Acid (Vitamin C) 500 mg DAILY PO Last administered on 05/01/17 08:58 ; Admin Dose 500 MG; Start 04/30/17 at 09:00 Folic Acid (Folic Acid) 1 mg DAILY PO Last administered on 05/01/17 08:58; Admin Dose 1 MG; Start 04/30/17 at 09:00 Multivitamins Therapeutic (Theragran) 1 tab DAILY PO Last administered on 08:58; Admin Dose 1 TAB; Start 04/30/17 at 09:00 Acetaminophen (Tylenol Supp) 650 mg Q4H PRN [place] PAIN OR TEMP ABOVE 38C Last administered on 04/30/17 14:34; Admin Dose 650 MG; Start 04/29/17 at 20:30 Diagnostic Test (Pha) (Accu-Chek) 1 ea Q6 XX ; Start 04/29/17 at 20:30 Diagnostic Test (Pha) (Accu-Chek) 1 ea 02 XX ; Start 04/30/17 at 02:00 Insulin Aspart (Novolog Insulin Pen) NOVOLOG *MODERATE* ALGORI... Q6 SC Last administered on 04/30/17 17:57; Admin Dose 6 UNIT; Start 04/29/17 at 20:30 Miscellaneous Information 1 ea NOTE XX ; Start 04/29/17 at 20:30 Glucose (Glutose) 15 gm Q15M PRN PO DECREASED GLUCOSE; Start 04/29/17 at 20:30 Glucose (Glutose) 22.5 gm Q15M PRN PO DECREASED GLUCOSE; Start 04/29/17 at 20: 30 Dextrose (D50w Syringe) 25 ml Q15M PRN IV DECREASED GLUCOSE; Start 04/29/17 at 20:30 Dextrose (D50w Syringe) 50 ml Q15M PRN IV DECREASED GLUCOSE; Start 04/29/17 at 20:30 Glucagon (Glucagen) 1 mg Q15M PRN IM DECREASED GLUCOSE; Start 04/29/17 at 20:30 Glucose (Glutose) 15 gm Q15M PRN BUCCAL DECREASED GLUCOSE; Start 04/29/17 at 20 :30 Metoprolol Tartrate (Lopressor) 25 mg BID PO Last administered on 05/01/17 08: 59; Admin Dose 25 MG; Start 04/29/17 at 21:01 Insulin Glargine 10 unit 10 unit DAILY@20 SC Last administered on 04/30/17 21: 55; Admin Dose 10 UNIT; Start 04/29/17 at 21:30 Vancomycin HCl/ Sodium Chloride (Vancocin/NS) 150 ml @ 75 mls/hr Q24H IVPB ; Start 05/01/17 at 15:00 Famotidine 20 mg 20 mg DAILY PO Last administered on 05/01/17 08:58; Admin Dose 20 MG; Start 05/01/17 at 09:00 Magnesium Sulfate 3 gm/Sodium Chloride 106 ml @ 35.333 mls/ hr ONCE ONCE IVPB ; Start 05/01/17 at 11:00; Stop 05/01/17 at 13:59 Potassium Chloride (KCl 40 MEQ/250 ML NS) 250 ml @ 62.5 mls/hr ONCE ONCE IVPB ; Start 05/01/17 at 10:00; Stop 05/01/17 at 13:59 DANIEL SILVEIRA NP May 01, 2017 09:56
[2017-05-01] MEDS ORDERED: POTASSIUM CHLORIDE 250 ML IVPB ONE (10:00)
[2017-05-01] MEDS ORDERED: hydrALAzine 20 MG INJ IV PRN (10:00)
[2017-05-01] MEDS ORDERED: MAGNESIUM SULFATE 3 GM in SOD CHLORIDE 0.9% 100 ML IVPB ONE ×2 (11:00→12:30)
[2017-05-01] MEDS: DEXTROSE 5%-0.45% NACL 1,000 ML IV SCH (11:25)
--- NOTE | 2017-05-01 12:02 | CONS ---
Date/Time of Note Date/Time of Note DATE: 05/01/17 TIME: 12:01 Consult Date/Type/Reason Admit Date/Time Apr 26, 2017 at 13:44 Initial Consult Date 04/28/17 Type of Consultation: Pulmonary Ordering Provider: TYRONE TEMPLE MD Subjective Comfortable this morning. Objective Vital Signs Date Time Temp Pulse Resp B/P Pulse Ox O2 Delivery O2 Flow Rate FiO2 05/01/17 11:35 98.5 78 18 163/80 98 05/01/17 08:00 Nasal Cannula 05/01/17 04:00 3.0 Exam PHYSICAL EXAMINATION GENERAL: Well-nourished well-developed lady comfortable at rest VITAL SIGNS: see below. HEENT: Pupils equal, round, and reactive to light CARDIAC: S1, S2, systolic ejection murmur. CHEST: Diminished air entry bilaterally with coarse rales. ABDOMEN: Mildly distended. Diminished bowel sounds. EXTREMITIES: No cyanosis, clubbing edema NEUROLOGIC: No focal deficits Results/Medications Result Diagram: 05/01/17 0635 05/01/17 0635 Results 24 hrs Laboratory Tests Test 04/30/17 12:11 04/30/17 16:01 04/30/17 17:40 04/30/17 21:40 Bedside Glucose 165 223 H 94 White Blood Count 12.4 #H Red Blood Count 3.89 L Hemoglobin 11.2 L Hematocrit 34.7 L Mean Corpuscular Volume 89.2 Mean Corpuscular Hemoglobin 28.8 L Mean Corpuscular Hemoglobin Concent 32.3 Red Cell Distribution Width 13.7 Platelet Count 239 Mean Platelet Volume 10.0 Neutrophils % 83.0 H Lymphocytes % 10.2 L Monocytes % 5.6 Eosinophils % 0.0 Basophils % 0.2 Nucleated Red Blood Cells % 0.0 Neutrophils # (Manual) 10 H Lymphocytes # 1.3 Monocytes # 0.7 Eosinophils # 0.0 Basophils # 0.0 Nucleated Red Blood Cells # 0.0 Troponin I 0.025 Vancomycin Level Trough 8.5 L Test 04/30/17 22:22 05/01/17 00:55 05/01/17 05:51 05/01/17 06:35 Troponin I 0.027 0.024 Bedside Glucose 87 92 White Blood Count 11.2 H Red Blood Count 3.60 L Hemoglobin 10.2 L Hematocrit 31.7 L Mean Corpuscular Volume 88.1 Mean Corpuscular Hemoglobin 28.3 L Mean Corpuscular Hemoglobin Concent 32.2 Red Cell Distribution Width 14.1 Platelet Count 228 Mean Platelet Volume 9.9 Neutrophils % 78.2 H Lymphocytes % 13.8 L Monocytes % 6.4 Eosinophils % 0.1 Basophils % 0.2 Nucleated Red Blood Cells % 0.0 Neutrophils # (Manual) 9 H Lymphocytes # 1.5 Monocytes # 0.7 Eosinophils # 0.0 Basophils # 0.0 Nucleated Red Blood Cells # 0.0 Sodium Level 138 Potassium Level 2.7 *L Chloride Level 95 L Carbon Dioxide Level 34 H Anion Gap 12 Blood Urea Nitrogen 12 # Creatinine 0.52 Glucose Level 79 # Calcium Level 9.2 Phosphorus Level 2.1 L Magnesium Level 1.2 L Test 05/01/17 11:32 Bedside Glucose 123 Medications Current Medications Enoxaparin Sodium (Lovenox) 30 mg DAILY SC Last administered on 05/01/17 09:02 ; Admin Dose 30 MG; Start 04/26/17 at 16:00 Lorazepam (Ativan) 0.5 mg Q8H PRN PO ANXIETY Last administered on 04/29/17 12: 26; Admin Dose 0.5 MG; Start 04/26/17 at 21:00 Zolpidem Tartrate (Ambien) 5 mg HS PRN PO INSOMNIA Last administered on 23:21; Admin Dose 5 MG; Start 04/27/17 at 03:00 Acetaminophen (Tylenol Tab) 650 mg Q4H PRN PO PAIN AND OR ELEVATED TEMP Last administered on 04/30/17 08:45; Admin Dose 650 MG; Start 04/27/17 at 08:30 Ondansetron HCl (Zofran Inj) 4 mg Q6H PRN IV NAUSEA AND/OR VOMITING Last administered on 04/28/17 09:07; Admin Dose 4 MG; Start 04/27/17 at 13:30 Bisacodyl (Dulcolax Supp) 10 mg DAILY PRN [place] PRN Last administered on 05:07; Admin Dose 10 MG; Start 04/28/17 at 05:00 Senna 5 ml 5 ml BID PO Last administered on 05/01/17 09:00; Admin Dose 5 ML; Start 04/28/17 at 21:00 Cefepime HCl (Maxipime 1gm/50 ml (Pmx)) 50 ml @ 100 mls/hr Q24H IVPB Last administered on 04/30/17 16:49; Admin Dose 100 MLS/HR; Start 04/28/17 at 16:15 Polyethylene Glycol (Miralax) 17 gm BID PO Last administered on 05/01/17 08:58 ; Admin Dose 17 GM; Start 04/28/17 at 21:00 Morphine Sulfate (morphine) 2 mg Q4H PRN IV PAIN Last administered on 02:49; Admin Dose 2 MG; Start 04/29/17 at 03:00 Acetaminophen/ Hydrocodone Bitart 1 tab 1 tab Q6H PRN PO PAIN; Start 04/29/17 at 03:00 Dextrose/Sodium Chloride (D5-1/2ns) 1,000 ml @ 40 mls/hr Q24H IV Last administered on 05/01/17 11:25; Admin Dose 40 MLS/HR; Start 04/29/17 at 10:30 Ascorbic Acid (Vitamin C) 500 mg DAILY PO Last administered on 05/01/17 08:58 ; Admin Dose 500 MG; Start 04/30/17 at 09:00 Folic Acid (Folic Acid) 1 mg DAILY PO Last administered on 05/01/17 08:58; Admin Dose 1 MG; Start 04/30/17 at 09:00 Multivitamins Therapeutic (Theragran) 1 tab DAILY PO Last administered on 08:58; Admin Dose 1 TAB; Start 04/30/17 at 09:00 Acetaminophen (Tylenol Supp) 650 mg Q4H PRN [place] PAIN OR TEMP ABOVE 38C Last administered on 04/30/17 14:34; Admin Dose 650 MG; Start 04/29/17 at 20:30 Diagnostic Test (Pha) (Accu-Chek) 1 ea Q6 XX ; Start 04/29/17 at 20:30 Diagnostic Test (Pha) (Accu-Chek) 1 ea 02 XX ; Start 04/30/17 at 02:00 Insulin Aspart (Novolog Insulin Pen) NOVOLOG *MODERATE* ALGORI... Q6 SC Last administered on 04/30/17 17:57; Admin Dose 6 UNIT; Start 04/29/17 at 20:30 Miscellaneous Information 1 ea NOTE XX ; Start 04/29/17 at 20:30 Glucose (Glutose) 15 gm Q15M PRN PO DECREASED GLUCOSE; Start 04/29/17 at 20:30 Glucose (Glutose) 22.5 gm Q15M PRN PO DECREASED GLUCOSE; Start 04/29/17 at 20: 30 Dextrose (D50w Syringe) 25 ml Q15M PRN IV DECREASED GLUCOSE; Start 04/29/17 at 20:30 Dextrose (D50w Syringe) 50 ml Q15M PRN IV DECREASED GLUCOSE; Start 04/29/17 at 20:30 Glucagon (Glucagen) 1 mg Q15M PRN IM DECREASED GLUCOSE; Start 04/29/17 at 20:30 Glucose (Glutose) 15 gm Q15M PRN BUCCAL DECREASED GLUCOSE; Start 04/29/17 at 20 :30 Metoprolol Tartrate (Lopressor) 25 mg BID PO Last administered on 05/01/17 08: 59; Admin Dose 25 MG; Start 04/29/17 at 21:01 Insulin Glargine 10 unit 10 unit DAILY@20 SC Last administered on 04/30/17 21: 55; Admin Dose 10 UNIT; Start 04/29/17 at 21:30 Vancomycin HCl/ Sodium Chloride (Vancocin/NS) 150 ml @ 75 mls/hr Q24H IVPB ; Start 05/01/17 at 15:00 Famotidine 20 mg 20 mg DAILY PO Last administered on 05/01/17 08:58; Admin Dose 20 MG; Start 05/01/17 at 09:00 Magnesium Sulfate 3 gm/Sodium Chloride 106 ml @ 35.333 mls/ hr ONCE ONCE IVPB Last administered on 05/01/17 11:25; Admin Dose 35.333 MLS/HR; Start at 11:00; Stop 05/01/17 at 13:59 Potassium Chloride (KCl 40 MEQ/250 ML NS) 250 ml @ 62.5 mls/hr ONCE ONCE IVPB Last administered on 05/01/17 11:25; Admin Dose 62.5 MLS/HR; Start 05/01/17 at 10:00; Stop 05/01/17 at 13:59 Hydralazine HCl (Apresoline) 5 mg Q6H PRN IV SBP>160; Start 05/01/17 at 10:00 Assessment/Plan Chief Complaint/Hosp Course IMPRESSION AND PLAN: 1. Likely chronic aspiration. 2. Pleural effusion likely secondary to above. 3. Advanced Parkinson's disease. 4. Dysphagia. 5. Hypokalemia Recommend: 1. Continue current antibiotics pending further culture results. 2. Aspiration precautions. 3. Supplemental O2. 4. Replace potassium 5. Cardiac recommendations regarding possible arrhythmia DNR/DNI noted. Discharge planning Problems: MONIKA SANTIAGO MD, [facility] May 01, 2017 12:02
--- NOTE | 2017-05-01 12:14 | CONS ---
Date/Time of Note Date/Time of Note DATE: 05/01/17 TIME: 12:10 Assessment/Plan Assessment/Plan Additional Assessment/Plan Possible atrial flutter versus artifact, currently sinus rhythm Preserved ejection fraction Pulmonary hypertension Tricuspid and mitral valve regurgitation Parkinson's Failure to thrive with dysphagia Hypertension Pleural effusion status post thoracentesis -On review of telemetry, patient with significant artifact secondary to Parkinson's. On "grain cleaner" strips, patient currently in sinus rhythm. ECG is reviewed from yesterday more likely atrial flutter but as mentioned, there is significant baseline artifact. At the current time patient remains in sinus rhythm. Continue beta-jesus. I did discuss with the patient's family regarding anticoagulation, given her debilitated state and possible need for procedures and unclear if this is atrial flutter, the risk is anticoagulation likely outweigh the benefits at the current time. Would continue beta-jesus, maintain potassium above 4.0 and magnesium above 2.0 to decrease the risk of arrhythmias. Would start CESARIO inhibitor if no contraindication for assistance with blood pressure control. Consultation Date/Type/Reason Admit Date/Time Apr 26, 2017 at 13:44 Initial Consult Date 04/28/17 Type of Consultation: cv Referring Provider: TYRONE TEMPLE MD 24 HR Interval Summary Free Text/Dictation Patient seen and examined. As per family, denies chest pain and more awake today Exam/Review of Systems Vital Signs Vitals Vital Signs Date Time Temp Pulse Resp B/P Pulse Ox O2 Delivery O2 Flow Rate FiO2 05/01/17 12:02 69 05/01/17 11:35 98.5 18 163/80 98 05/01/17 08:00 Nasal Cannula 05/01/17 04:00 3.0 Exam Sleeping but minimally arousable, no apparent distress, contracted Head: normocephalic Respiratory: other (Coarse breath sounds bilaterally, no wheezing) Cardiovascular: other (S1-S2 heard), regular rate and rhythm Gastrointestinal: bowel sounds, non-tender, soft Extremities: edema (Trace) Results Result Diagram: 05/01/17 0635 05/01/17 0635 Results 24 hrs Laboratory Tests Test 04/30/17 12:11 04/30/17 16:01 04/30/17 17:40 04/30/17 21:40 Bedside Glucose 165 223 H 94 White Blood Count 12.4 #H Red Blood Count 3.89 L Hemoglobin 11.2 L Hematocrit 34.7 L Mean Corpuscular Volume 89.2 Mean Corpuscular Hemoglobin 28.8 L Mean Corpuscular Hemoglobin Concent 32.3 Red Cell Distribution Width 13.7 Platelet Count 239 Mean Platelet Volume 10.0 Neutrophils % 83.0 H Lymphocytes % 10.2 L Monocytes % 5.6 Eosinophils % 0.0 Basophils % 0.2 Nucleated Red Blood Cells % 0.0 Neutrophils # (Manual) 10 H Lymphocytes # 1.3 Monocytes # 0.7 Eosinophils # 0.0 Basophils # 0.0 Nucleated Red Blood Cells # 0.0 Troponin I 0.025 Vancomycin Level Trough 8.5 L Test 04/30/17 22:22 05/01/17 00:55 05/01/17 05:51 05/01/17 06:35 Troponin I 0.027 0.024 Bedside Glucose 87 92 White Blood Count 11.2 H Red Blood Count 3.60 L Hemoglobin 10.2 L Hematocrit 31.7 L Mean Corpuscular Volume 88.1 Mean Corpuscular Hemoglobin 28.3 L Mean Corpuscular Hemoglobin Concent 32.2 Red Cell Distribution Width 14.1 Platelet Count 228 Mean Platelet Volume 9.9 Neutrophils % 78.2 H Lymphocytes % 13.8 L Monocytes % 6.4 Eosinophils % 0.1 Basophils % 0.2 Nucleated Red Blood Cells % 0.0 Neutrophils # (Manual) 9 H Lymphocytes # 1.5 Monocytes # 0.7 Eosinophils # 0.0 Basophils # 0.0 Nucleated Red Blood Cells # 0.0 Sodium Level 138 Potassium Level 2.7 *L Chloride Level 95 L Carbon Dioxide Level 34 H Anion Gap 12 Blood Urea Nitrogen 12 # Creatinine 0.52 Glucose Level 79 # Calcium Level 9.2 Phosphorus Level 2.1 L Magnesium Level 1.2 L Test 05/01/17 11:32 Bedside Glucose 123 Medications Medications Current Medications Enoxaparin Sodium (Lovenox) 30 mg DAILY SC Last administered on 05/01/17 09:02 ; Admin Dose 30 MG; Start 04/26/17 at 16:00 Lorazepam (Ativan) 0.5 mg Q8H PRN PO ANXIETY Last administered on 04/29/17 12: 26; Admin Dose 0.5 MG; Start 04/26/17 at 21:00 Zolpidem Tartrate (Ambien) 5 mg HS PRN PO INSOMNIA Last administered on 23:21; Admin Dose 5 MG; Start 04/27/17 at 03:00 Acetaminophen (Tylenol Tab) 650 mg Q4H PRN PO PAIN AND OR ELEVATED TEMP Last administered on 04/30/17 08:45; Admin Dose 650 MG; Start 04/27/17 at 08:30 Ondansetron HCl (Zofran Inj) 4 mg Q6H PRN IV NAUSEA AND/OR VOMITING Last administered on 04/28/17 09:07; Admin Dose 4 MG; Start 04/27/17 at 13:30 Bisacodyl (Dulcolax Supp) 10 mg DAILY PRN [place] PRN Last administered on 05:07; Admin Dose 10 MG; Start 04/28/17 at 05:00 Senna 5 ml 5 ml BID PO Last administered on 05/01/17 09:00; Admin Dose 5 ML; Start 04/28/17 at 21:00 Cefepime HCl (Maxipime 1gm/50 ml (Pmx)) 50 ml @ 100 mls/hr Q24H IVPB Last administered on 04/30/17 16:49; Admin Dose 100 MLS/HR; Start 04/28/17 at 16:15 Polyethylene Glycol (Miralax) 17 gm BID PO Last administered on 05/01/17 08:58 ; Admin Dose 17 GM; Start 04/28/17 at 21:00 Morphine Sulfate (morphine) 2 mg Q4H PRN IV PAIN Last administered on 02:49; Admin Dose 2 MG; Start 04/29/17 at 03:00 Acetaminophen/ Hydrocodone Bitart 1 tab 1 tab Q6H PRN PO PAIN; Start 04/29/17 at 03:00 Dextrose/Sodium Chloride (D5-1/2ns) 1,000 ml @ 40 mls/hr Q24H IV Last administered on 05/01/17 11:25; Admin Dose 40 MLS/HR; Start 04/29/17 at 10:30 Ascorbic Acid (Vitamin C) 500 mg DAILY PO Last administered on 05/01/17 08:58 ; Admin Dose 500 MG; Start 04/30/17 at 09:00 Folic Acid (Folic Acid) 1 mg DAILY PO Last administered on 05/01/17 08:58; Admin Dose 1 MG; Start 04/30/17 at 09:00 Multivitamins Therapeutic (Theragran) 1 tab DAILY PO Last administered on 08:58; Admin Dose 1 TAB; Start 04/30/17 at 09:00 Acetaminophen (Tylenol Supp) 650 mg Q4H PRN [place] PAIN OR TEMP ABOVE 38C Last administered on 04/30/17 14:34; Admin Dose 650 MG; Start 04/29/17 at 20:30 Diagnostic Test (Pha) (Accu-Chek) 1 ea Q6 XX ; Start 04/29/17 at 20:30 Diagnostic Test (Pha) (Accu-Chek) 1 ea 02 XX ; Start 04/30/17 at 02:00 Insulin Aspart (Novolog Insulin Pen) NOVOLOG *MODERATE* ALGORI... Q6 SC Last administered on 04/30/17 17:57; Admin Dose 6 UNIT; Start 04/29/17 at 20:30 Miscellaneous Information 1 ea NOTE XX ; Start 04/29/17 at 20:30 Glucose (Glutose) 15 gm Q15M PRN PO DECREASED GLUCOSE; Start 04/29/17 at 20:30 Glucose (Glutose) 22.5 gm Q15M PRN PO DECREASED GLUCOSE; Start 04/29/17 at 20: 30 Dextrose (D50w Syringe) 25 ml Q15M PRN IV DECREASED GLUCOSE; Start 04/29/17 at 20:30 Dextrose (D50w Syringe) 50 ml Q15M PRN IV DECREASED GLUCOSE; Start 04/29/17 at 20:30 Glucagon (Glucagen) 1 mg Q15M PRN IM DECREASED GLUCOSE; Start 04/29/17 at 20:30 Glucose (Glutose) 15 gm Q15M PRN BUCCAL DECREASED GLUCOSE; Start 04/29/17 at 20 :30 Metoprolol Tartrate (Lopressor) 25 mg BID PO Last administered on 05/01/17 08: 59; Admin Dose 25 MG; Start 04/29/17 at 21:01 Insulin Glargine 10 unit 10 unit DAILY@20 SC Last administered on 04/30/17 21: 55; Admin Dose 10 UNIT; Start 04/29/17 at 21:30 Vancomycin HCl/ Sodium Chloride (Vancocin/NS) 150 ml @ 75 mls/hr Q24H IVPB ; Start 05/01/17 at 15:00 Famotidine 20 mg 20 mg DAILY PO Last administered on 05/01/17 08:58; Admin Dose 20 MG; Start 05/01/17 at 09:00 Magnesium Sulfate 3 gm/Sodium Chloride 106 ml @ 35.333 mls/ hr ONCE ONCE IVPB Last administered on 05/01/17 11:25; Admin Dose 35.333 MLS/HR; Start at 11:00; Stop 05/01/17 at 13:59 Potassium Chloride (KCl 40 MEQ/250 ML NS) 250 ml @ 62.5 mls/hr ONCE ONCE IVPB Last administered on 05/01/17 11:25; Admin Dose 62.5 MLS/HR; Start 05/01/17 at 10:00; Stop 05/01/17 at 13:59 Hydralazine HCl (Apresoline) 5 mg Q6H PRN IV SBP>160; Start 05/01/17 at 10:00 Mihir Holcomb DO May 01, 2017 12:14
[2017-05-01] MEDS: LISINOPRIL 5 MG TAB PO SCH ×2 (12:30→21:24)
--- NOTE | 2017-05-01 13:50 | RADRPT ---
Vent Rate: 94 bpm RR Interval: 0 msec TN Interval: 0 msec QRS Duration: 138 msec QT Interval: 366 msec QTC Interval: 457 msec P-R-T [place]: 0 - 164 - 43 degrees Undertermined rhythm, significant baseline artifact Right bundle branch block Abnormal ECG Electronically Signed By: Isaias Smith [id number]
--- NOTE | 2017-05-01 13:51 | RADRPT ---
Vent Rate: 96 bpm RR Interval: 0 msec ME Interval: 156 msec QRS Duration: 124 msec QT Interval: 382 msec QTC Interval: 482 msec P-R-T [place]: 61 - 104 - 52 degrees Normal sinus rhythm Right bundle branch block Abnormal ECG Electronically Signed By: Isaias Smith [id number]
[2017-05-01] MEDS: CEFEPIME 1GM/50 ML (PMX) 50 ML IVPB SCH (16:02)
[2017-05-01] MEDS: VANCOMYCIN 750 MG in SOD CHLORIDE 0.9% 150 ML IVPB SCH (16:02)
--- NOTE | 2017-05-01 17:18 | PN ---
DATE: 05/01/2017 SUBJECTIVE DATA: No acute changes overnight. The patient was transferred to telemetry for complaints of chest pain. She is lying comfortably in bed. Family at bedside. No fevers. Temperature 98.5, pulse 78, respirations 18, blood pressure 163/80, saturation 98 percent on nasal cannula. LABORATORY STUDIES: WBC 11.2, H and H 10.2 and 31.7, platelets 228, neutrophils 78.2. BUN 12, creatinine 0.52. ANTIMICROBIALS: Vancomycin, cefepime. PHYSICAL EXAMINATION: GENERAL: This is a fragile, chronically ill-appearing, elderly woman who is in no distress. HEENT: Head atraumatic, normocephalic. Sclerae anicteric. Buccal mucosa dry. NECK: Supple. CHEST: Chest rise symmetrical. Breath sounds diminished at the bases. HEART: S1, S2. ABDOMEN: Soft, bowel sounds present. ASSESSMENT: 1. Systemic resolving sepsis with fevers and leukocytosis, possibly secondary to ongoing aspiration. 2. Exudative pleural effusions, status post thoracentesis on 04/27/2017. 3. Dysphagia. 4. Diabetes. 5. Chronic encephalopathy. PLAN: Patient remains clinically unchanged. White blood cell count tracing down. She is afebrile. She is being followed by multiple consultants. We will continue her on antibiotics. Continue anti-aspiration measures. Above was discussed with staff. Dictated By: Jack Dumont NP /lexis/nigel /Document#: [id number]
--- NOTE | 2017-05-01 17:30 | PN ---
Date/Time of Note Date/Time of Note DATE: 05/01/17 TIME: 17:26 Assessment/Plan VTE Prophylaxis VTE Prophylaxis Intervention: SCD's Lines/Catheters IV Catheter Type (from Nrs): Peripheral IV Urinary Cath still in place: No Subjective 24 Hr Interval Summary Free Text/Dictation Assessment * Dysphagia/failed swallowing evaluation * Intractable vomiting resolved * Pleural effusion * S/P thoracentesis * Parkinson * Plan * Patient will benefit from EGD PEG, however to relatives son and daughter of the patient had in the room are completely unaware of the situation and therefore unable to provide consent they request more information be provided to them as to options of treatment including the possibility of palliative care * I will therefore postpone the decision to proceed with EGD PEG until the family is ready Subjective Subjective 24 Hr Interval Summary Free Text/Dictation * Course reviewed with RN * Failed swallowing evaluation * Family unclear as to course of action and direction Exam Constitutional: frail, barely responsive Neck: non-tender, supple Respiratory: crackles/rales, diminished breath sounds Cardiovascular: nl pulses, regular rate and rhythm Gastrointestinal: non-tender, soft Musculoskeletal: muscle weakness Extremities: edema Skin: rash or lesions Exam/Review of Systems Vital Signs Vitals Vital Signs Date Time Temp Pulse Resp B/P Pulse Ox O2 Delivery O2 Flow Rate FiO2 05/01/17 16:10 105 05/01/17 15:22 98.5 18 134/72 98 05/01/17 08:00 Nasal Cannula 05/01/17 04:00 3.0 Results Result Diagram: 05/01/17 0635 05/01/17 0635 Results 24 hrs Laboratory Tests Test 04/30/17 17:40 04/30/17 21:40 04/30/17 22:22 05/01/17 00:55 Bedside Glucose 223 H 94 87 Troponin I 0.027 Test 05/01/17 05:51 05/01/17 06:35 05/01/17 11:32 Bedside Glucose 92 123 White Blood Count 11.2 H Red Blood Count 3.60 L Hemoglobin 10.2 L Hematocrit 31.7 L Mean Corpuscular Volume 88.1 Mean Corpuscular Hemoglobin 28.3 L Mean Corpuscular Hemoglobin Concent 32.2 Red Cell Distribution Width 14.1 Platelet Count 228 Mean Platelet Volume 9.9 Neutrophils % 78.2 H Lymphocytes % 13.8 L Monocytes % 6.4 Eosinophils % 0.1 Basophils % 0.2 Nucleated Red Blood Cells % 0.0 Neutrophils # (Manual) 9 H Lymphocytes # 1.5 Monocytes # 0.7 Eosinophils # 0.0 Basophils # 0.0 Nucleated Red Blood Cells # 0.0 Sodium Level 138 Potassium Level 2.7 *L Chloride Level 95 L Carbon Dioxide Level 34 H Anion Gap 12 Blood Urea Nitrogen 12 # Creatinine 0.52 Glucose Level 79 # Calcium Level 9.2 Phosphorus Level 2.1 L Magnesium Level 1.2 L Troponin I 0.024 Medications Medications Current Medications Enoxaparin Sodium (Lovenox) 30 mg DAILY SC Last administered on 05/01/17 09:02 ; Admin Dose 30 MG; Start 04/26/17 at 16:00 Lorazepam (Ativan) 0.5 mg Q8H PRN PO ANXIETY Last administered on 04/29/17 12: 26; Admin Dose 0.5 MG; Start 04/26/17 at 21:00 Zolpidem Tartrate (Ambien) 5 mg HS PRN PO INSOMNIA Last administered on 23:21; Admin Dose 5 MG; Start 04/27/17 at 03:00 Acetaminophen (Tylenol Tab) 650 mg Q4H PRN PO PAIN AND OR ELEVATED TEMP Last administered on 04/30/17 08:45; Admin Dose 650 MG; Start 04/27/17 at 08:30 Ondansetron HCl (Zofran Inj) 4 mg Q6H PRN IV NAUSEA AND/OR VOMITING Last administered on 04/28/17 09:07; Admin Dose 4 MG; Start 04/27/17 at 13:30 Bisacodyl (Dulcolax Supp) 10 mg DAILY PRN [place] PRN Last administered on 05:07; Admin Dose 10 MG; Start 04/28/17 at 05:00 Senna 5 ml 5 ml BID PO Last administered on 05/01/17 09:00; Admin Dose 5 ML; Start 04/28/17 at 21:00 Cefepime HCl (Maxipime 1gm/50 ml (Pmx)) 50 ml @ 100 mls/hr Q24H IVPB Last administered on 05/01/17 16:02; Admin Dose 100 MLS/HR; Start 04/28/17 at 16:15 Polyethylene Glycol (Miralax) 17 gm BID PO Last administered on 05/01/17 08:58 ; Admin Dose 17 GM; Start 04/28/17 at 21:00 Morphine Sulfate (morphine) 2 mg Q4H PRN IV PAIN Last administered on 02:49; Admin Dose 2 MG; Start 04/29/17 at 03:00 Acetaminophen/ Hydrocodone Bitart 1 tab 1 tab Q6H PRN PO PAIN; Start 04/29/17 at 03:00 Dextrose/Sodium Chloride (D5-1/2ns) 1,000 ml @ 40 mls/hr Q24H IV Last administered on 05/01/17 11:25; Admin Dose 40 MLS/HR; Start 04/29/17 at 10:30 Ascorbic Acid (Vitamin C) 500 mg DAILY PO Last administered on 05/01/17 08:58 ; Admin Dose 500 MG; Start 04/30/17 at 09:00 Folic Acid (Folic Acid) 1 mg DAILY PO Last administered on 05/01/17 08:58; Admin Dose 1 MG; Start 04/30/17 at 09:00 Multivitamins Therapeutic (Theragran) 1 tab DAILY PO Last administered on 08:58; Admin Dose 1 TAB; Start 04/30/17 at 09:00 Acetaminophen (Tylenol Supp) 650 mg Q4H PRN [place] PAIN OR TEMP ABOVE 38C Last administered on 04/30/17 14:34; Admin Dose 650 MG; Start 04/29/17 at 20:30 Diagnostic Test (Pha) (Accu-Chek) 1 ea Q6 XX ; Start 04/29/17 at 20:30 Diagnostic Test (Pha) (Accu-Chek) 1 ea 02 XX ; Start 04/30/17 at 02:00 Insulin Aspart (Novolog Insulin Pen) NOVOLOG *MODERATE* ALGORI... Q6 SC Last administered on 04/30/17 17:57; Admin Dose 6 UNIT; Start 04/29/17 at 20:30 Miscellaneous Information 1 ea NOTE XX ; Start 04/29/17 at 20:30 Glucose (Glutose) 15 gm Q15M PRN PO DECREASED GLUCOSE; Start 04/29/17 at 20:30 Glucose (Glutose) 22.5 gm Q15M PRN PO DECREASED GLUCOSE; Start 8/16/17 at 20: 30 Dextrose (D50w Syringe) 25 ml Q15M PRN IV DECREASED GLUCOSE; Start 04/29/17 at 20:30 Dextrose (D50w Syringe) 50 ml Q15M PRN IV DECREASED GLUCOSE; Start 04/29/17 at 20:30 Glucagon (Glucagen) 1 mg Q15M PRN IM DECREASED GLUCOSE; Start 04/29/17 at 20:30 Glucose (Glutose) 15 gm Q15M PRN BUCCAL DECREASED GLUCOSE; Start 04/29/17 at 20 :30 Metoprolol Tartrate (Lopressor) 25 mg BID PO Last administered on 05/01/17 08: 59; Admin Dose 25 MG; Start 04/29/17 at 21:01 Insulin Glargine 10 unit 10 unit DAILY@20 SC Last administered on 04/30/17 21: 55; Admin Dose 10 UNIT; Start 04/29/17 at 21:30 Vancomycin HCl/ Sodium Chloride (Vancocin/NS) 150 ml @ 75 mls/hr Q24H IVPB Last administered on 05/01/17 16:02; Admin Dose 75 MLS/HR; Start 05/01/17 at 15 :00 Famotidine (Pepcid) 20 mg DAILY PO Last administered on 05/01/17 08:58; Admin Dose 20 MG; Start 05/01/17 at 09:00 Hydralazine HCl (Apresoline) 5 mg Q6H PRN IV SBP>160 Last administered on 12:15; Admin Dose 5 MG; Start 05/01/17 at 10:00 Lisinopril (Zestril) 5 mg BID PO ; Start 05/01/17 at 12:30 CLAUDETTE JACKSON MD May 01, 2017 17:30
[2017-05-01] MEDS: INSULIN GLARGINE [LANtus] 3 ML PEN SC SCH (21:36)
[2017-05-02] VITALS (11 sets, daily range): BP systolic 107–177; BP diastolic 62–91; PULSE 71–105; RESP 15–20
[2017-05-02] MEDS: ACCU-CHEK XX SCH ×5 (02:00→17:42)
[2017-05-02] MEDS: INSULIN ASPART [NOVOLOG] 3 ML PEN SC SCH ×4 (06:00→18:00)
[2017-05-02 07:02] LABS: CALCIUM 8.9 mg/dl (8.4-10.2); CREATININE 0.46 mg/dl (0.44-1.00); MAGNESIUM 1.8 mg/dl (1.7-2.5)
[2017-05-02 07:09] LABS: POTASSIUM 2.8 mmol/L (3.5-5.1)
--- NOTE | 2017-05-02 07:37 | PN ---
Date/Time of Note Date/Time of Note DATE: 05/02/17 TIME: 07:36 Assessment/Plan VTE Prophylaxis VTE Prophylaxis Intervention: SCD's Lines/Catheters IV C[facility]ter Type (from [facility]): Peripheral IV Urinary Cath still in place: No Assessment/Plan Assessment/Plan Possible atrial flutter versus artifact, currently sinus rhythm Preserved ejection fraction Pulmonary hypertension Tricuspid and mitral valve regurgitation Parkinson's Failure to thrive with dysphagia Hypertension Pleural effusion status post thoracentesis -On review of telemetry, patient with significant artifact secondary to Parkinson's. On "road cleaner" strips, patient currently in sinus rhythm. ECG is reviewed from yesterday more likely atrial flutter but as mentioned, there is significant baseline artifact. At the current time patient remains in sinus rhythm. Continue beta-jesus. the risk is anticoagulation likely outweigh the benefits at the current time. Would continue beta-jesus, maintain potassium above 4.0 and magnesium above 2.0 to decrease the risk of arrhythmias. Would start CESARIO inhibitor if no contraindication for assistance with blood pressure control. Subjective 24 Hr Interval Summary Free Text/Dictation The patient with no change Exam/Review of Systems Vital Signs Vitals Vital Signs Date Time Temp Pulse Resp B/P Pulse Ox O2 Delivery O2 Flow Rate FiO2 05/02/17 04:00 72 05/02/17 03:26 99.0 15 107/62 98 05/01/17 20:00 Nasal Cannula 2.0 Intake and Output 05/01/17 05/01/17 05/02/17 15:00 23:00 07:00 Intake Total 250 ml 716 ml Balance 250 ml 716 ml Results Result Diagram: 05/01/17 0635 05/02/17 0558 Results 24 hrs Laboratory Tests Test 05/01/17 11:32 05/01/17 17:42 05/01/17 21:22 05/02/17 00:35 Bedside Glucose 123 143 159 135 Test 05/02/17 05:55 05/02/17 05:58 Bedside Glucose 109 Sodium Level 140 Potassium Level 2.8 *L Chloride Level 93 L Carbon Dioxide Level 36 H Anion Gap 14 Blood Urea Nitrogen 12 Creatinine 0.46 Glucose Level 106 Calcium Level 8.9 Magnesium Level 1.8 Medications Medications Current Medications Enoxaparin Sodium (Lovenox) 30 mg DAILY SC Last administered on 05/01/17t 09:02 ; Admin Dose 30 MG; Start 04/26/17 at 16:00 Lorazepam (Ativan) 0.5 mg Q8H PRN PO ANXIETY Last administered on 04/29/17 12: 26; Admin Dose 0.5 MG; Start 04/26/17 at 21:00 Zolpidem Tartrate (Ambien) 5 mg HS PRN PO INSOMNIA Last administered on 23:21; Admin Dose 5 MG; Start 04/27/17 at 03:00 Acetaminophen (Tylenol Tab) 650 mg Q4H PRN PO PAIN AND OR ELEVATED TEMP Last administered on 04/30/17 08:45; Admin Dose 650 MG; Start 04/27/17 at 08:30 Ondansetron HCl (Zofran Inj) 4 mg Q6H PRN IV NAUSEA AND/OR VOMITING Last administered on 04/28/17 09:07; Admin Dose 4 MG; Start 04/27/17 at 13:30 Bisacodyl (Dulcolax Supp) 10 mg DAILY PRN [place] PRN Last administered on 05:07; Admin Dose 10 MG; Start 04/28/17 at 05:00 Senna 5 ml 5 ml BID PO Last administered on 05/01/17 21:24; Admin Dose 5 ML; Start 04/28/17 at 21:00 Cefepime HCl (Maxipime 1gm/50 ml (Pmx)) 50 ml @ 100 mls/hr Q24H IVPB Last administered on 05/01/17 16:02; Admin Dose 100 MLS/HR; Start 04/28/17 at 16:15 Polyethylene Glycol (Miralax) 17 gm BID PO Last administered on 05/01/17 08:58 ; Admin Dose 17 GM; Start 04/28/17 at 21:00 Morphine Sulfate (morphine) 2 mg Q4H PRN IV PAIN Last administered on 02:49; Admin Dose 2 MG; Start 04/29/17 at 03:00 Acetaminophen/ Hydrocodone Bitart 1 tab 1 tab Q6H PRN PO PAIN; Start 04/29/17 at 03:00 Dextrose/Sodium Chloride (D5-1/2ns) 1,000 ml @ 40 mls/hr Q24H IV Last administered on 05/01/17 11:25; Admin Dose 40 MLS/HR; Start 04/29/17 at 10:30 Ascorbic Acid (Vitamin C) 500 mg DAILY PO Last administered on 05/01/17 08:58 ; Admin Dose 500 MG; Start 04/30/17 at 09:00 Folic Acid (Folic Acid) 1 mg DAILY PO Last administered on 05/01/17 08:58; Admin Dose 1 MG; Start 04/30/17 at 09:00 Multivitamins Therapeutic (Theragran) 1 tab DAILY PO Last administered on 08:58; Admin Dose 1 TAB; Start 04/30/17 at 09:00 Acetaminophen (Tylenol Supp) 650 mg Q4H PRN [place] PAIN OR TEMP ABOVE 38C Last administered on 04/30/17 14:34; Admin Dose 650 MG; Start 04/29/17 at 20:30 Diagnostic Test (Pha) (Accu-Chek) 1 ea Q6 XX ; Start 04/29/17 at 20:30 Diagnostic Test (Pha) (Accu-Chek) 1 ea 02 XX ; Start 04/30/17 at 02:00 Insulin Aspart (Novolog Insulin Pen) NOVOLOG *MODERATE* ALGORI... Q6 SC Last administered on 05/01/17 17:56; Admin Dose 2 UNIT; Start 04/29/17 at 20:30 Miscellaneous Information 1 ea NOTE XX ; Start 04/29/17 at 20:30 Glucose (Glutose) 15 gm Q15M PRN PO DECREASED GLUCOSE; Start 04/29/17 at 20:30 Glucose (Glutose) 22.5 gm Q15M PRN PO DECREASED GLUCOSE; Start 04/29/17 at 20: 30 Dextrose (D50w Syringe) 25 ml Q15M PRN IV DECREASED GLUCOSE; Start 04/29/17 at 20:30 Dextrose (D50w Syringe) 50 ml Q15M PRN IV DECREASED GLUCOSE; Start 04/29/17 at 20:30 Glucagon (Glucagen) 1 mg Q15M PRN IM DECREASED GLUCOSE; Start 04/29/17 at 20:30 Glucose (Glutose) 15 gm Q15M PRN BUCCAL DECREASED GLUCOSE; Start 04/29/17 at 20 :30 Metoprolol Tartrate (Lopressor) 25 mg BID PO Last administered on 05/01/17 21: 24; Admin Dose 25 MG; Start 04/29/17 at 21:01 Insulin Glargine 10 unit 10 unit DAILY@20 SC Last administered on 05/01/17 21: 36; Admin Dose 10 UNIT; Start 04/29/17 at 21:30 Vancomycin HCl/ Sodium Chloride (Vancocin/NS) 150 ml @ 75 mls/hr Q24H IVPB Last administered on 05/01/17 16:02; Admin Dose 75 MLS/HR; Start 05/01/17 at 15 :00 Famotidine (Pepcid) 20 mg DAILY PO Last administered on 05/01/17 08:58; Admin Dose 20 MG; Start 05/01/17 at 09:00 Hydralazine HCl (Apresoline) 5 mg Q6H PRN IV SBP>160 Last administered on 12:15; Admin Dose 5 MG; Start 05/01/17 at 10:00 Lisinopril 5 mg 5 mg BID PO Last administered on 05/01/17 21:24; Admin Dose 5 MG; Start 05/01/17 at 12:30 Potassium Chloride/Sodium Chloride (KCl/NS) 165 ml @ 55 mls/hr ONCE ONCE IVPB ; Start 05/02/17 at 07:30; Stop 05/02/17 at 10:29; Status UNDOMINIQUE RODRÍGUEZ MD May 02, 2017 07:37
[2017-05-02] MEDS ORDERED: POTASSIUM CHLORIDE 30 MEQ in SOD CHLORIDE 0.9% 150 ML IVPB ONE ×2 (09:00→12:00)
[2017-05-02] MEDS: LISINOPRIL 5 MG TAB PO SCH ×2 (09:10→20:19)
[2017-05-02] MEDS: FAMOTIDINE 20 MG TAB PO SCH (09:11)
[2017-05-02] MEDS: POLYETHYLENE GLYCOL 17 GM PACKET PO SCH ×3 (09:11→21:00)
[2017-05-02] MEDS: METOPROLOL 25 MG TAB PO SCH (09:11)
[2017-05-02] MEDS: MULTIVITAMINS THERAPEUTIC TAB PO SCH (09:11)
[2017-05-02] MEDS: ASCORBIC ACID 500 MG TAB PO SCH (09:11)
[2017-05-02] MEDS: FOLIC ACID 1 MG TAB PO SCH (09:11)
[2017-05-02] MEDS: SENNA (PO SYG) PO SCH ×3 (09:11→21:00)
[2017-05-02] MEDS: ENOXAPARIN 30 MG/0.3 ML SYG SC SCH (09:34)
[2017-05-02] MEDS: DEXTROSE 5%-0.45% NACL 1,000 ML IV SCH (10:27)
--- NOTE | 2017-05-02 10:56 | PN ---
Date/Time of Note Date/Time of Note DATE: 05/02/17 TIME: 10:50 Assessment/Plan VTE Prophylaxis VTE Prophylaxis Intervention: SCD's Lines/Catheters IV Catheter Type (from Nrs): Peripheral IV Urinary Cath still in place: No Assessment/Plan Assessment/Plan PROGRESS NOTE Assessment * Dysphagia/failed swallowing evaluation * Intractable vomiting resolved * Pleural effusion * S/P thoracentesis * Parkinson * Plan * Patient will benefit from EGD PEG, * EGD + PEG reviewed with several family members in attendance, they will in turn review options with other relatives and decide if they want EGD+ PEG Thursday * Subjective Subjective 24 Hr Interval Summary Free Text/Dictation * Course reviewed with RN * Failed swallowing evaluation * Family reviewing options Exam Constitutional: frail, barely responsive Neck: non-tender, supple Respiratory: crackles/rales, diminished breath sounds Cardiovascular: nl pulses, regular rate and rhythm Gastrointestinal: non-tender, soft Musculoskeletal: muscle weakness Extremities: edema Skin: rash or lesions Exam/Review of Systems Vital Signs Vitals Vital Signs Date Time Temp Pulse Resp B/P Pulse Ox O2 Delivery O2 Flow Rate FiO2 05/02/17 08:12 98.3 83 18 177/75 98 05/01/17 20:00 Nasal Cannula 2.0 Intake and Output 05/01/17 05/01/17 05/02/17 15:00 23:00 07:00 Intake Total 250 ml 716 ml 25 ml Balance 250 ml 716 ml 25 ml Results Result Diagram: 05/01/17 0635 05/02/17 0558 Results 24 hrs Laboratory Tests Test 05/01/17 11:32 05/01/17 17:42 05/01/17 21:22 05/02/17 00:35 Bedside Glucose 123 143 159 135 Test 05/02/17 05:55 05/02/17 05:58 Bedside Glucose 109 Sodium Level 140 Potassium Level 2.8 *L Chloride Level 93 L Carbon Dioxide Level 36 H Anion Gap 14 Blood Urea Nitrogen 12 Creatinine 0.46 Glucose Level 106 Calcium Level 8.9 Magnesium Level 1.8 Medications Medications Current Medications Enoxaparin Sodium (Lovenox) 30 mg DAILY SC Last administered on 05/02/17 09:34 ; Admin Dose 30 MG; Start 04/26/17 at 16:00 Lorazepam (Ativan) 0.5 mg Q8H PRN PO ANXIETY Last administered on 04/29/17 12: 26; Admin Dose 0.5 MG; Start 04/26/17 at 21:00 Zolpidem Tartrate (Ambien) 5 mg HS PRN PO INSOMNIA Last administered on 23:21; Admin Dose 5 MG; Start 04/27/17 at 03:00 Acetaminophen (Tylenol Tab) 650 mg Q4H PRN PO PAIN AND OR ELEVATED TEMP Last administered on 04/30/17 08:45; Admin Dose 650 MG; Start 04/27/17 at 08:30 Ondansetron HCl (Zofran Inj) 4 mg Q6H PRN IV NAUSEA AND/OR VOMITING Last administered on 04/28/17 09:07; Admin Dose 4 MG; Start 04/27/17 at 13:30 Bisacodyl (Dulcolax Supp) 10 mg DAILY PRN [place] PRN Last administered on 05:07; Admin Dose 10 MG; Start 04/28/17 at 05:00 Senna 5 ml 5 ml BID PO Last administered on 05/02/17 09:11; Admin Dose 5 ML; Start 04/28/17 at 21:00 Cefepime HCl (Maxipime 1gm/50 ml (Pmx)) 50 ml @ 100 mls/hr Q24H IVPB Last administered on 05/01/17 16:02; Admin Dose 100 MLS/HR; Start 04/28/17 at 16:15 Polyethylene Glycol (Miralax) 17 gm BID PO Last administered on 05/02/17 09:11 ; Admin Dose 17 GM; Start 04/28/17 at 21:00 Morphine Sulfate (morphine) 2 mg Q4H PRN IV PAIN Last administered on 02:49; Admin Dose 2 MG; Start 04/29/17 at 03:00 Acetaminophen/ Hydrocodone Bitart 1 tab 1 tab Q6H PRN PO PAIN; Start 04/29/17 at 03:00 Dextrose/Sodium Chloride (D5-1/2ns) 1,000 ml @ 40 mls/hr Q24H IV Last administered on 05/01/17 11:25; Admin Dose 40 MLS/HR; Start 04/29/17 at 10:30 Ascorbic Acid (Vitamin C) 500 mg DAILY PO Last administered on 05/02/17 09:11 ; Admin Dose 500 MG; Start 04/30/17 at 09:00 Folic Acid (Folic Acid) 1 mg DAILY PO Last administered on 05/02/17 09:11; Admin Dose 1 MG; Start 04/30/17 at 09:00 Multivitamins Therapeutic (Theragran) 1 tab DAILY PO Last administered on 09:11; Admin Dose 1 TAB; Start 04/30/17 at 09:00 Acetaminophen (Tylenol Supp) 650 mg Q4H PRN [place] PAIN OR TEMP ABOVE 38C Last administered on 04/30/17 14:34; Admin Dose 650 MG; Start 04/29/17 at 20:30 Diagnostic Test (Pha) (Accu-Chek) 1 ea Q6 XX ; Start 04/29/17 at 20:30 Diagnostic Test (Pha) (Accu-Chek) 1 ea 02 XX ; Start 04/30/17 at 02:00 Insulin Aspart (Novolog Insulin Pen) NOVOLOG *MODERATE* ALGORI... Q6 SC Last administered on 05/01/17 17:56; Admin Dose 2 UNIT; Start 04/29/17 at 20:30 Miscellaneous Information 1 ea NOTE XX ; Start 04/29/17 at 20:30 Glucose (Glutose) 15 gm Q15M PRN PO DECREASED GLUCOSE; Start 04/29/17 at 20:30 Glucose (Glutose) 22.5 gm Q15M PRN PO DECREASED GLUCOSE; Start 04/29/17 at 20: 30 Dextrose (D50w Syringe) 25 ml Q15M PRN IV DECREASED GLUCOSE; Start 04/29/17 at 20:30 Dextrose (D50w Syringe) 50 ml Q15M PRN IV DECREASED GLUCOSE; Start 04/29/17 at 20:30 Glucagon (Glucagen) 1 mg Q15M PRN IM DECREASED GLUCOSE; Start 04/29/17 at 20:30 Glucose (Glutose) 15 gm Q15M PRN BUCCAL DECREASED GLUCOSE; Start 04/29/17 at 20 :30 Metoprolol Tartrate (Lopressor) 25 mg BID PO Last administered on 05/02/17 09: 11; Admin Dose 25 MG; Start 04/29/17 at 21:01 Insulin Glargine 10 unit 10 unit DAILY@20 SC Last administered on 05/01/17 21: 36; Admin Dose 10 UNIT; Start 04/29/17 at 21:30 Vancomycin HCl/ Sodium Chloride (Vancocin/NS) 150 ml @ 75 mls/hr Q24H IVPB Last administered on 05/01/17 16:02; Admin Dose 75 MLS/HR; Start 05/01/17 at 15 :00 Famotidine (Pepcid) 20 mg DAILY PO Last administered on 05/02/17 09:11; Admin Dose 20 MG; Start 05/01/17 at 09:00 Hydralazine HCl (Apresoline) 5 mg Q6H PRN IV SBP>160 Last administered on 12:15; Admin Dose 5 MG; Start 05/01/17 at 10:00 Lisinopril 5 mg 5 mg BID PO Last administered on 05/02/17 09:10; Admin Dose 5 MG; Start 05/01/17 at 12:30 Potassium Chloride 30 meq/ Sodium Chloride 165 ml @ 55 mls/hr ONCE ONCE IVPB Last administered on 05/02/17 10:16; Admin Dose 55 MLS/HR; Start 05/02/17 at 09 :00; Stop 05/02/17 at 11:59 Potassium Chloride/Sodium Chloride (KCl/NS) 165 ml @ 55 mls/hr ONCE ONCE IVPB ; Start 05/02/17 at 12:00; Stop 05/02/17 at 14:59 CLAUDETTE JACKSON MD May 02, 2017 10:56
--- NOTE | 2017-05-02 11:27 | PN ---
Date/Time of Note Date/Time of Note DATE: 05/02/17 TIME: 11:23 Assessment/Plan VTE Prophylaxis VTE Prophylaxis Intervention: heparin Lines/Catheters IV [facility]from [facility] Peripheral IV Urinary Cath still in place: No Assessment/Plan Problems: (1) Dysphagia Status: Chronic Comment: She is failed swallowing studies. If we are going to give her nutritional supplementation she will need a PEG tube. However given her overall status the appropriateness of this has to be determined by the family. Therefore will need a family conference. There is clear that the GI specialist has had some discussions however my discussion with the grandson today demonstrated significant knowledge deficit. We will attempt to get this clarified. Qualifiers: Dysphagia type: unspecified Qualified Code: R13.10 - Dysphagia, unspecified type (2) Recurrent aspiration bronchitis/pneumonia Status: Chronic Comment: This is due to the dysphagia from the Parkinson's disease. Poses an active rest (3) Underweight due to inadequate caloric intake Status: Chronic Comment: As noted above she will needed some type of nutritional supplementation access if we are to attempt aggressive intervention in this patient (4) Essential hypertension Status: Chronic Comment: Continue medication treatment up dose the beta-jesus for control of tachydysrhythmia (5) Diabetes mellitus type 2 in nonobese Status: Chronic Comment: Adequate control after all the weight loss on current medication regimen (6) Hypokalemia Status: Acute Comment: Will replete this intravenously (7) Anemia Status: Chronic Comment: Multifactorial anemia with partially iron deficiency. Stable at this time not in need of transfusion Qualifiers: Anemia type: iron deficiency Iron deficiency anemia type: inadequate dietary iron intake Qualified Code: D50.8 - Iron deficiency anemia secondary to inadequate dietary iron intake (8) Pulmonary hypertension Status: Chronic Comment: As noted above cardiology has agreed that phosphodiesterase inhibitors and other agents are not appropriate in the setting (9) Parkinson's disease dementia Status: Chronic Comment: Patient's baseline function is limited Qualifiers: Dementia behavioral disturbance: without behavioral disturbance Qualified Code: G20 - Dementia due to Parkinson's disease without behavioral disturbance (10) Parkinson's disease (tremor, stiffness, slow motion, unstable posture) Status: Chronic Comment: Appreciate neurology input and medication recommendations Subjective 24 Hr Interval Summary Subjective hx not possible: pt non-verbal Exam/Review of Systems Vital Signs Vitals Vital Signs Date Time Temp Pulse Resp B/P Pulse Ox O2 Delivery O2 Flow Rate FiO2 8/19/17 08:12 98.3 83 18 177/75 98 05/01/17 20:00 Nasal Cannula 2.0 Intake and Output 05/01/17 05/01/17 05/02/17 15:00 23:00 07:00 Intake Total 250 ml 716 ml 25 ml Balance 250 ml 716 ml 25 ml Exam Patient's grandson at bedside. Attempted to explain to him details of her care. Constitutional: non-verbal Neck: non-tender Respiratory: clear to auscultation, normal air movement Cardiovascular: nl pulses (Please note not tachycardic), regular rate and rhythm Gastrointestinal: nl liver, spleen, non-tender, soft Neurological: other (Fine pill-rolling tremor bilateral extremities right greater than left) Results Result Diagram: 05/01/17 0635 05/02/17 0558 Results 24 hrs Laboratory Tests Test 05/01/17 11:32 05/01/17 17:42 05/01/17 21:22 05/02/17 00:35 Bedside Glucose 123 143 159 135 Test 05/02/17 05:55 05/02/17 05:58 Bedside Glucose 109 Sodium Level 140 Potassium Level 2.8 *L Chloride Level 93 L Carbon Dioxide Level 36 H Anion Gap 14 Blood Urea Nitrogen 12 Creatinine 0.46 Glucose Level 106 Calcium Level 8.9 Magnesium Level 1.8 Medications Medications Current Medications Enoxaparin Sodium (Lovenox) 30 mg DAILY SC Last administered on 05/02/17 09:34 ; Admin Dose 30 MG; Start 04/26/17 at 16:00 Lorazepam (Ativan) 0.5 mg Q8H PRN PO ANXIETY Last administered on 04/29/17 12: 26; Admin Dose 0.5 MG; Start 04/26/17 at 21:00 Zolpidem Tartrate (Ambien) 5 mg HS PRN PO INSOMNIA Last administered on 23:21; Admin Dose 5 MG; Start 04/27/17 at 03:00 Acetaminophen (Tylenol Tab) 650 mg Q4H PRN PO PAIN AND OR ELEVATED TEMP Last administered on 04/30/17 08:45; Admin Dose 650 MG; Start 04/27/17 at 08:30 Ondansetron HCl (Zofran Inj) 4 mg Q6H PRN IV NAUSEA AND/OR VOMITING Last administered on 04/28/17 09:07; Admin Dose 4 MG; Start 04/27/17 at 13:30 Bisacodyl (Dulcolax Supp) 10 mg DAILY PRN ID PRN Last administered on 05:07; Admin Dose 10 MG; Start 04/28/17 at 05:00 Senna 5 ml 5 ml BID PO Last administered on 05/02/17 09:11; Admin Dose 5 ML; Start 04/28/17 at 21:00 Cefepime HCl (Maxipime 1gm/50 ml (Pmx)) 50 ml @ 100 mls/hr Q24H IVPB Last administered on 05/01/17 16:02; Admin Dose 100 MLS/HR; Start 04/28/17 at 16:15 Polyethylene Glycol (Miralax) 17 gm BID PO Last administered on 05/02/17 09:11 ; Admin Dose 17 GM; Start 04/28/17 at 21:00 Morphine Sulfate (morphine) 2 mg Q4H PRN IV PAIN Last administered on 02:49; Admin Dose 2 MG; Start 04/29/17 at 03:00 Acetaminophen/ Hydrocodone Bitart 1 tab 1 tab Q6H PRN PO PAIN; Start 04/29/17 at 03:00 Dextrose/Sodium Chloride (D5-1/2ns) 1,000 ml @ 40 mls/hr Q24H IV Last administered on 05/01/17 11:25; Admin Dose 40 MLS/HR; Start 04/29/17 at 10:30 Ascorbic Acid (Vitamin C) 500 mg DAILY PO Last administered on 05/02/17 09:11 ; Admin Dose 500 MG; Start 04/30/17 at 09:00 Folic Acid (Folic Acid) 1 mg DAILY PO Last administered on 05/02/17 09:11; Admin Dose 1 MG; Start 04/30/17 at 09:00 Multivitamins Therapeutic (Theragran) 1 tab DAILY PO Last administered on 09:11; Admin Dose 1 TAB; Start 04/30/17 at 09:00 Acetaminophen (Tylenol Supp) 650 mg Q4H PRN [place] PAIN OR TEMP ABOVE 38C Last administered on 04/30/17 14:34; Admin Dose 650 MG; Start 04/29/17 at 20:30 Diagnostic Test (Pha) (Accu-Chek) 1 ea Q6 XX ; Start 04/29/17 at 20:30 Diagnostic Test (Pha) (Accu-Chek) 1 ea 02 XX ; Start 04/30/17 at 02:00 Insulin Aspart (Novolog Insulin Pen) NOVOLOG *MODERATE* ALGORI... Q6 SC Last administered on 05/01/17 17:56; Admin Dose 2 UNIT; Start 04/29/17 at 20:30 Miscellaneous Information 1 ea NOTE XX ; Start 04/29/17 at 20:30 Glucose (Glutose) 15 gm Q15M PRN PO DECREASED GLUCOSE; Start 04/29/17 at 20:30 Glucose (Glutose) 22.5 gm Q15M PRN PO DECREASED GLUCOSE; Start 04/29/17 at 20: 30 Dextrose (D50w Syringe) 25 ml Q15M PRN IV DECREASED GLUCOSE; Start 04/29/17 at 20:30 Dextrose (D50w Syringe) 50 ml Q15M PRN IV DECREASED GLUCOSE; Start 04/29/17 at 20:30 Glucagon (Glucagen) 1 mg Q15M PRN IM DECREASED GLUCOSE; Start 04/29/17 at 20:30 Glucose (Glutose) 15 gm Q15M PRN BUCCAL DECREASED GLUCOSE; Start 04/29/17 at 20 :30 Metoprolol Tartrate (Lopressor) 25 mg BID PO Last administered on 05/02/17 09: 11; Admin Dose 25 MG; Start 04/29/17 at 21:01 Insulin Glargine 10 unit 10 unit DAILY@20 SC Last administered on 05/01/17 21: 36; Admin Dose 10 UNIT; Start 04/29/17 at 21:30 Vancomycin HCl/ Sodium Chloride (Vancocin/NS) 150 ml @ 75 mls/hr Q24H IVPB Last administered on 05/01/17 16:02; Admin Dose 75 MLS/HR; Start 05/01/17 at 15 :00 Famotidine (Pepcid) 20 mg DAILY PO Last administered on 05/02/17 09:11; Admin Dose 20 MG; Start 05/01/17 at 09:00 Hydralazine HCl (Apresoline) 5 mg Q6H PRN IV SBP>160 Last administered on 12:15; Admin Dose 5 MG; Start 05/01/17 at 10:00 Lisinopril 5 mg 5 mg BID PO Last administered on 05/02/17 09:10; Admin Dose 5 MG; Start 05/01/17 at 12:30 Potassium Chloride 30 meq/ Sodium Chloride 165 ml @ 55 mls/hr ONCE ONCE IVPB Last administered on 05/02/17 10:16; Admin Dose 55 MLS/HR; Start 05/02/17 at 09 :00; Stop 05/02/17 at 11:59 Potassium Chloride/Sodium Chloride (KCl/NS) 165 ml @ 55 mls/hr ONCE ONCE IVPB ; Start 05/02/17 at 12:00; Stop 05/02/17 at 14:59 YELENA IRAHETA MD May 02, 2017 11:27
--- NOTE | 2017-05-02 12:41 | CONS ---
Date/Time of Note Date/Time of Note DATE: 05/02/17 TIME: 12:39 Assessment/Plan Assessment/Plan Additional Assessment/Plan Chest x-ray was reviewed from yesterday which is showing minimal left lower lobe infiltrative/atelectatic changes. Assessment and recommendations; 1. Patient admitted with left lower lobe pneumonia possibly aspiration. 2. Advanced dementia. 3. Dysphagia. 4. Advanced Parkinson's disease. Continue current treatment. Patient's family refusing G-tube placement. Prognosis is poor. Consultation Date/Type/Reason Admit Date/Time Apr 26, 2017 at 13:44 Initial Consult Date 04/28/17 Type of Consultation: Pulmonary Referring Provider: TYRONE TEMPLE MD 24 HR Interval Summary Free Text/Dictation Patient condition is tenuous at best. She is not much responsive. Patient's grandson is in the room and the family is refusing G-tube placement for feeding purposes. General exam; elderly woman, somewhat awake but currently in no distress. Exam/Review of Systems Vital Signs Vitals Vital Signs Date Time Temp Pulse Resp B/P Pulse Ox O2 Delivery O2 Flow Rate FiO2 05/02/17 12:16 76 05/02/17 11:48 98.6 18 127/91 95 05/01/17 20:00 Nasal Cannula 2.0 Intake and Output 05/01/17 05/01/17 05/02/17 15:00 23:00 07:00 Intake Total 250 ml 716 ml 25 ml Balance 250 ml 716 ml 25 ml Exam HEENT exam; supple neck, no JVD. No lymphadenopathy. Midline trachea. No thyromegaly. Patient has bilateral intraocular lens implants. She is edentulous. Chest exam; diminished breath sounds bilaterally. No added sound. S1-S2 audible, no murmurs. Regular rhythm. Abdomen exam; soft, no organomegaly. Nontender. Bowel sounds audible. Extremity exam; no peripheral edema. [employer] exam; patient is not much responsive. Results Result Diagram: 05/01/17 0635 05/02/17 0558 Results 24 hrs Laboratory Tests Test 05/01/17 17:42 05/01/17 21:22 05/02/17 00:35 05/02/17 05:55 Bedside Glucose 143 159 135 109 Test 05/02/17 05:58 05/02/17 12:16 Sodium Level 140 Potassium Level 2.8 *L Chloride Level 93 L Carbon Dioxide Level 36 H Anion Gap 14 Blood Urea Nitrogen 12 Creatinine 0.46 Glucose Level 106 Calcium Level 8.9 Magnesium Level 1.8 Bedside Glucose 110 Medications Medications Current Medications Enoxaparin Sodium (Lovenox) 30 mg DAILY SC Last administered on 05/02/17 09:34 ; Admin Dose 30 MG; Start 04/26/17 at 16:00 Lorazepam (Ativan) 0.5 mg Q8H PRN PO ANXIETY Last administered on 04/29/17 12: 26; Admin Dose 0.5 MG; Start 04/26/17 at 21:00 Zolpidem Tartrate (Ambien) 5 mg HS PRN PO INSOMNIA Last administered on 23:21; Admin Dose 5 MG; Start 04/27/17 at 03:00 Acetaminophen (Tylenol Tab) 650 mg Q4H PRN PO PAIN AND OR ELEVATED TEMP Last administered on 04/30/17 08:45; Admin Dose 650 MG; Start 04/27/17 at 08:30 Ondansetron HCl (Zofran Inj) 4 mg Q6H PRN IV NAUSEA AND/OR VOMITING Last administered on 04/28/17 09:07; Admin Dose 4 MG; Start 04/27/17 at 13:30 Bisacodyl (Dulcolax Supp) 10 mg DAILY PRN [place] PRN Last administered on 05:07; Admin Dose 10 MG; Start 04/28/17 at 05:00 Senna 5 ml 5 ml BID PO Last administered on 05/02/17 09:11; Admin Dose 5 ML; Start 04/28/17 at 21:00 Cefepime HCl (Maxipime 1gm/50 ml (Pmx)) 50 ml @ 100 mls/hr Q24H IVPB Last administered on 05/01/17 16:02; Admin Dose 100 MLS/HR; Start 04/28/17 at 16:15 Polyethylene Glycol (Miralax) 17 gm BID PO Last administered on 05/02/17 09:11 ; Admin Dose 17 GM; Start 04/28/17 at 21:00 Morphine Sulfate (morphine) 2 mg Q4H PRN IV PAIN Last administered on 02:49; Admin Dose 2 MG; Start 04/29/17 at 03:00 Acetaminophen/ Hydrocodone Bitart 1 tab 1 tab Q6H PRN PO PAIN; Start 04/29/17 at 03:00 Dextrose/Sodium Chloride (D5-1/2ns) 1,000 ml @ 40 mls/hr Q24H IV Last administered on 05/01/17 11:25; Admin Dose 40 MLS/HR; Start 04/29/17 at 10:30 Ascorbic Acid (Vitamin C) 500 mg DAILY PO Last administered on 05/02/17 09:11 ; Admin Dose 500 MG; Start 04/30/17 at 09:00 Folic Acid (Folic Acid) 1 mg DAILY PO Last administered on 05/02/17 09:11; Admin Dose 1 MG; Start 04/30/17 at 09:00 Multivitamins Therapeutic (Theragran) 1 tab DAILY PO Last administered on 09:11; Admin Dose 1 TAB; Start 04/30/17 at 09:00 Acetaminophen (Tylenol Supp) 650 mg Q4H PRN [place] PAIN OR TEMP ABOVE 38C Last administered on 04/30/17 14:34; Admin Dose 650 MG; Start 04/29/17 at 20:30 Diagnostic Test (Pha) (Accu-Chek) 1 ea Q6 XX ; Start 04/29/17 at 20:30 Diagnostic Test (Pha) (Accu-Chek) 1 ea 02 XX ; Start 04/30/17 at 02:00 Insulin Aspart (Novolog Insulin Pen) NOVOLOG *MODERATE* ALGORI... Q6 SC Last administered on 05/01/17 17:56; Admin Dose 2 UNIT; Start 04/29/17 at 20:30 Miscellaneous Information 1 ea NOTE XX ; Start 04/29/17 at 20:30 Glucose (Glutose) 15 gm Q15M PRN PO DECREASED GLUCOSE; Start 04/29/17 at 20:30 Glucose (Glutose) 22.5 gm Q15M PRN PO DECREASED GLUCOSE; Start 04/29/17 at 20: 30 Dextrose (D50w Syringe) 25 ml Q15M PRN IV DECREASED GLUCOSE; Start 04/29/17 at 20:30 Dextrose (D50w Syringe) 50 ml Q15M PRN IV DECREASED GLUCOSE; Start 04/29/17 at 20:30 Glucagon (Glucagen) 1 mg Q15M PRN IM DECREASED GLUCOSE; Start 04/29/17 at 20:30 Glucose (Glutose) 15 gm Q15M PRN BUCCAL DECREASED GLUCOSE; Start 04/29/17 at 20 :30 Insulin Glargine 10 unit 10 unit DAILY@20 SC Last administered on 05/01/17 21: 36; Admin Dose 10 UNIT; Start 04/29/17 at 21:30 Vancomycin HCl/ Sodium Chloride (Vancocin/NS) 150 ml @ 75 mls/hr Q24H IVPB Last administered on 05/01/17 16:02; Admin Dose 75 MLS/HR; Start 05/01/17 at 15 :00 Famotidine (Pepcid) 20 mg DAILY PO Last administered on 05/02/17 09:11; Admin Dose 20 MG; Start 05/01/17 at 09:00 Hydralazine HCl (Apresoline) 5 mg Q6H PRN IV SBP>160 Last administered on 12:15; Admin Dose 5 MG; Start 05/01/17 at 10:00 Lisinopril 5 mg 5 mg BID PO Last administered on 05/02/17 09:10; Admin Dose 5 MG; Start 05/01/17 at 12:30 Potassium Chloride 30 meq/ Sodium Chloride 165 ml @ 55 mls/hr ONCE ONCE IVPB ; Start 05/02/17 at 12:00; Stop 05/02/17 at 14:59 Potassium Chloride (KCl 40 MEQ/250 ML NS) 250 ml @ 62.5 mls/hr ONCE ONCE IVPB ; Start 05/02/17 at 17:00; Stop 05/02/17 at 20:59 Metoprolol Tartrate (Lopressor) 50 mg BID PO ; Start 05/02/17 at 21:00 CHRISTIAN GAMEZ May 02, 2017 12:41
[2017-05-02] MEDS: VANCOMYCIN 750 MG in SOD CHLORIDE 0.9% 150 ML IVPB SCH (15:22)
[2017-05-02] MEDS: CEFEPIME 1GM/50 ML (PMX) 50 ML IVPB SCH (16:32)
--- NOTE | 2017-05-02 16:42 | CONS ---
Date/Time of Note Date/Time of Note DATE: 05/02/17 TIME: 16:40 Assessment/Plan Assessment/Plan Chief Complaint/Hosp Course SUBJECTIVE: No acute changes, sleeping, no fevers. MICROBIOLOGY: Blood cultures remain negative. Sputum culture negative. Aspirated pleural fluid cultures negative as well. ANTIMICROBIALS: Vancomycin and cefepime. PHYSICAL EXAMINATION: GENERAL: This is a fragile, chronically ill-appearing, elderly woman, who is lethargic and in no distress. HEENT: Head atraumatic, normocephalic. Sclerae anicteric. Buccal mucosa dry. NECK: Supple. CHEST: Rise symmetrical. Breath sounds diminished at the bases. HEART: S1, S2. ABDOMEN: Soft. Bowel sounds present. EXTREMITIES: With trace edema. ASSESSMENT: 1. Sepsis with fevers and leukocytosis, possibly ongoing aspiration. 2. Exudative pleural effusions, status post thoracentesis on 04/27, so far fluid cultures being negative. 3. Chronic encephalopathy. 4. Dysphagia. 5. Diabetes and hypertension. PLAN: Patient remains stable. Continue abx, aspiration precautions, family to decide re PEG placement DW staff Problems: Consultation Date/Type/Reason Admit Date/Time Apr 26, 2017 at 13:44 Initial Consult Date 04/28/17 Type of Consultation: ID Referring Provider: TYRONE TEMPLE MD Exam/Review of Systems Vital Signs Vitals Vital Signs Date Time Temp Pulse Resp B/P Pulse Ox O2 Delivery O2 Flow Rate FiO2 05/02/17 16:05 98.6 75 18 127/91 96 05/02/17 09:11 Nasal Cannula 2.0 Intake and Output 05/01/17 05/01/17 05/02/17 15:00 23:00 07:00 Intake Total 250 ml 716 ml 25 ml Balance 250 ml 716 ml 25 ml Results Result Diagram: 05/01/17 0635 05/02/17 0558 Results 24 hrs Laboratory Tests Test 05/01/17 17:42 05/01/17 21:22 05/02/17 00:35 05/02/17 05:55 Bedside Glucose 143 159 135 109 Test 05/02/17 05:58 05/02/17 12:16 Sodium Level 140 Potassium Level 2.8 *L Chloride Level 93 L Carbon Dioxide Level 36 H Anion Gap 14 Blood Urea Nitrogen 12 Creatinine 0.46 Glucose Level 106 Calcium Level 8.9 Magnesium Level 1.8 Bedside Glucose 110 Medications Medications Current Medications Enoxaparin Sodium (Lovenox) 30 mg DAILY SC Last administered on 05/02/17 09:34 ; Admin Dose 30 MG; Start 04/26/17 at 16:00 Lorazepam (Ativan) 0.5 mg Q8H PRN PO ANXIETY Last administered on 04/29/17 12: 26; Admin Dose 0.5 MG; Start 04/26/17 at 21:00 Zolpidem Tartrate (Ambien) 5 mg HS PRN PO INSOMNIA Last administered on 23:21; Admin Dose 5 MG; Start 04/27/17 at 03:00 Acetaminophen (Tylenol Tab) 650 mg Q4H PRN PO PAIN AND OR ELEVATED TEMP Last administered on 04/30/17 08:45; Admin Dose 650 MG; Start 04/27/17 at 08:30 Ondansetron HCl (Zofran Inj) 4 mg Q6H PRN IV NAUSEA AND/OR VOMITING Last administered on 04/28/17 09:07; Admin Dose 4 MG; Start 04/27/17 at 13:30 Bisacodyl (Dulcolax Supp) 10 mg DAILY PRN [place] PRN Last administered on 05:07; Admin Dose 10 MG; Start 04/28/17 at 05:00 Senna 5 ml 5 ml BID PO Last administered on 05/02/17 09:11; Admin Dose 5 ML; Start 04/28/17 at 21:00 Cefepime HCl (Maxipime 1gm/50 ml (Pmx)) 50 ml @ 100 mls/hr Q24H IVPB Last administered on 05/02/17 16:32; Admin Dose 100 MLS/HR; Start 04/28/17 at 16:15 Polyethylene Glycol (Miralax) 17 gm BID PO Last administered on 05/02/17 09:11 ; Admin Dose 17 GM; Start 04/28/17 at 21:00 Morphine Sulfate (morphine) 2 mg Q4H PRN IV PAIN Last administered on 02:49; Admin Dose 2 MG; Start 04/29/17 at 03:00 Acetaminophen/ Hydrocodone Bitart 1 tab 1 tab Q6H PRN PO PAIN; Start 04/29/17 at 03:00 Dextrose/Sodium Chloride (D5-1/2ns) 1,000 ml @ 40 mls/hr Q24H IV Last administered on 05/01/17 11:25; Admin Dose 40 MLS/HR; Start 04/29/17 at 10:30 Ascorbic Acid (Vitamin C) 500 mg DAILY PO Last administered on 05/02/17 09:11 ; Admin Dose 500 MG; Start 04/30/17 at 09:00 Folic Acid (Folic Acid) 1 mg DAILY PO Last administered on 05/02/17 09:11; Admin Dose 1 MG; Start 04/30/17 at 09:00 Multivitamins Therapeutic (Theragran) 1 tab DAILY PO Last administered on 09:11; Admin Dose 1 TAB; Start 04/30/17 at 09:00 Acetaminophen (Tylenol Supp) 650 mg Q4H PRN [place] PAIN OR TEMP ABOVE 38C Last administered on 04/30/17 14:34; Admin Dose 650 MG; Start 04/29/17 at 20:30 Diagnostic Test (Pha) (Accu-Chek) 1 ea Q6 XX ; Start 04/29/17 at 20:30 Diagnostic Test (Pha) (Accu-Chek) 1 ea 02 XX ; Start 04/30/17 at 02:00 Insulin Aspart (Novolog Insulin Pen) NOVOLOG *MODERATE* ALGORI... Q6 SC Last administered on 05/01/17 17:56; Admin Dose 2 UNIT; Start 04/29/17 at 20:30 Miscellaneous Information 1 ea NOTE XX ; Start 04/29/17 at 20:30 Glucose (Glutose) 15 gm Q15M PRN PO DECREASED GLUCOSE; Start 04/29/17 at 20:30 Glucose (Glutose) 22.5 gm Q15M PRN PO DECREASED GLUCOSE; Start 04/29/17 at 20: 30 Dextrose (D50w Syringe) 25 ml Q15M PRN IV DECREASED GLUCOSE; Start 04/29/17 at 20:30 Dextrose (D50w Syringe) 50 ml Q15M PRN IV DECREASED GLUCOSE; Start 04/29/17 at 20:30 Glucagon (Glucagen) 1 mg Q15M PRN IM DECREASED GLUCOSE; Start 04/29/17 at 20:30 Glucose (Glutose) 15 gm Q15M PRN BUCCAL DECREASED GLUCOSE; Start 04/29/17 at 20 :30 Insulin Glargine 10 unit 10 unit DAILY@20 SC Last administered on 05/01/17 21: 36; Admin Dose 10 UNIT; Start 04/29/17 at 21:30 Vancomycin HCl/ Sodium Chloride (Vancocin/NS) 150 ml @ 75 mls/hr Q24H IVPB Last administered on 05/02/17 15:22; Admin Dose 75 MLS/HR; Start 05/01/17 at 15 :00 Famotidine (Pepcid) 20 mg DAILY PO Last administered on 05/02/17 09:11; Admin Dose 20 MG; Start 05/01/17 at 09:00 Hydralazine HCl (Apresoline) 5 mg Q6H PRN IV SBP>160 Last administered on 12:15; Admin Dose 5 MG; Start 05/01/17 at 10:00 Lisinopril 5 mg 5 mg BID PO Last administered on 05/02/17 09:10; Admin Dose 5 MG; Start 05/01/17 at 12:30 Potassium Chloride (KCl 40 MEQ/250 ML NS) 250 ml @ 62.5 mls/hr ONCE ONCE IVPB ; Start 05/02/17 at 17:00; Stop 05/02/17 at 20:59 Metoprolol Tartrate (Lopressor) 50 mg BID PO ; Start 05/02/17 at 21:00 ANTONI MATHEWS NP May 02, 2017 16:41
[2017-05-02] MEDS ORDERED: POTASSIUM CHLORIDE 250 ML IVPB ONE (17:00)
[2017-05-02] MEDS: METOPROLOL 50 MG TAB PO SCH (20:20)
[2017-05-02] MEDS: INSULIN GLARGINE [LANtus] 3 ML PEN SC SCH (20:27)
[2017-05-03] VITALS (10 sets, daily range): BP systolic 133–170; BP diastolic 67–94; PULSE 67–119; RESP 17–20
[2017-05-03] MEDS: ACCU-CHEK XX SCH ×5 (02:00→17:32)
[2017-05-03] MEDS: INSULIN ASPART [NOVOLOG] 3 ML PEN SC SCH ×4 (06:00→17:51)
[2017-05-03 07:09] LABS: BASOPHIL # 0.1 10^3/ul (0.0-0.1); BASOPHILS % 0.6 % (0.0-2.0); EOSINOPHILS % 0.1 % (0.0-7.0); HEMATOCRIT 37.7 % (37.0-47.0); HEMOGLOBIN 12.1 g/dl (12.0-16.0); LYMPHOCYTES # 1.6 10^3/ul (0.8-2.9); LYMPHOCYTES % 19.1 % (15.0-51.0); MEAN CORPUSCULAR HEMOGLOBIN 28.6 pg (29.0-33.0); MEAN CORPUSCULAR HGB CONC 32.1 g/dl (32.0-37.0); MEAN CORPUSCULAR VOLUME 89.1 fl (82.0-101.0); MEAN PLATELET VOLUME 10.1 fl (7.4-10.4); MONOCYTE # 0.7 10^3/ul (0.3-0.9); MONOCYTES % 8.9 % (0.0-11.0); NEUTROPHILS % 67.8 % (39.0-77.0); PLATELET COUNT 253 10^3/UL (140-415); RED BLOOD COUNT 4.23 10^6/ul (4.20-5.40); RED CELL DISTRIBUTION WIDTH 14.1 % (11.5-14.5); WHITE BLOOD COUNT 8.3 10^3/ul (4.8-10.8)
[2017-05-03 07:40] LABS: CALCIUM 9.2 mg/dl (8.4-10.2); CREATININE 0.43 mg/dl (0.44-1.00); POTASSIUM 3.9 mmol/L (3.5-5.1)
--- NOTE | 2017-05-03 08:14 | CONS ---
Date/Time of Note Date/Time of Note DATE: 05/03/17 TIME: 08:12 Consultation Date/Type/Reason Admit Date/Time Apr 26, 2017 at 13:44 Initial Consult Date 04/28/17 Type of Consultation: ID Referring Provider: TYRONE TEMPLE MD 24 HR Interval Summary Free Text/Dictation Possible atrial flutter versus artifact, currently sinus rhythm - hold anticoagulation given comorbidities and uncertainty in diagnosis Preserved ejection fraction Pulmonary hypertension Tricuspid and mitral valve regurgitation Parkinson's Failure to thrive with dysphagia Hypertension Pleural effusion status post thoracentesis hypoglycemia - corrected Exam/Review of Systems Vital Signs Vitals Vital Signs Date Time Temp Pulse Resp B/P Pulse Ox O2 Delivery O2 Flow Rate FiO2 05/03/17 07:29 97.9 87 20 133/94 92 05/02/17 23:41 Nasal Cannula 2.0 Intake and Output 05/02/17 05/02/17 05/03/17 15:00 23:00 07:00 Intake Total 240 ml 440 ml Balance 240 ml 440 ml Exam Constitutional: alert Psych: no complaints Respiratory: clear to auscultation Cardiovascular: regular rate and rhythm Extremities: No clubbing, No edema Neurological: other (parkinsonian tremor) Results Result Diagram: 05/03/17 0547 05/03/17 0547 Results 24 hrs Laboratory Tests Test 05/02/17 12:16 05/02/17 18:17 05/02/17 20:14 05/03/17 05:47 Bedside Glucose 110 119 122 White Blood Count 8.3 # Red Blood Count 4.23 Hemoglobin 12.1 Hematocrit 37.7 Mean Corpuscular Volume 89.1 Mean Corpuscular Hemoglobin 28.6 L Mean Corpuscular Hemoglobin Concent 32.1 Red Cell Distribution Width 14.1 Platelet Count 253 Mean Platelet Volume 10.1 Neutrophils % 67.8 Lymphocytes % 19.1 Monocytes % 8.9 Eosinophils % 0.1 Basophils % 0.6 Nucleated Red Blood Cells % 0.0 Neutrophils # (Manual) 6 Lymphocytes # 1.6 Monocytes # 0.7 Eosinophils # 0.0 Basophils # 0.1 Nucleated Red Blood Cells # 0.0 Sodium Level 140 Potassium Level 3.9 Chloride Level 101 Carbon Dioxide Level 30 Anion Gap 13 Blood Urea Nitrogen 11 Creatinine 0.43 L Glucose Level 39 #*L Calcium Level 9.2 Test 05/03/17 06:15 05/03/17 06:32 05/03/17 06:55 Bedside Glucose 394 H 251 H 185 Medications Medications Current Medications Enoxaparin Sodium (Lovenox) 30 mg DAILY SC Last administered on 05/02/17 09:34 ; Admin Dose 30 MG; Start 04/26/17 at 16:00 Lorazepam (Ativan) 0.5 mg Q8H PRN PO ANXIETY Last administered on 04/29/17 12: 26; Admin Dose 0.5 MG; Start 04/26/17 at 21:00 Zolpidem Tartrate (Ambien) 5 mg HS PRN PO INSOMNIA Last administered on 23:21; Admin Dose 5 MG; Start 04/27/17 at 03:00 Acetaminophen (Tylenol Tab) 650 mg Q4H PRN PO PAIN AND OR ELEVATED TEMP Last administered on 04/30/17 08:45; Admin Dose 650 MG; Start 04/27/17 at 08:30 Ondansetron HCl (Zofran Inj) 4 mg Q6H PRN IV NAUSEA AND/OR VOMITING Last administered on 04/28/17 09:07; Admin Dose 4 MG; Start 04/27/17 at 13:30 Bisacodyl (Dulcolax Supp) 10 mg DAILY PRN ID PRN Last administered on 05:07; Admin Dose 10 MG; Start 04/28/17 at 05:00 Senna 5 ml 5 ml BID PO Last administered on 05/02/17 09:11; Admin Dose 5 ML; Start 04/28/17 at 21:00 Cefepime HCl (Maxipime 1gm/50 ml (Pmx)) 50 ml @ 100 mls/hr Q24H IVPB Last administered on 05/02/17 16:32; Admin Dose 100 MLS/HR; Start 04/28/17 at 16:15 Polyethylene Glycol (Miralax) 17 gm BID PO Last administered on 05/02/17 09:11 ; Admin Dose 17 GM; Start 04/28/17 at 21:00 Morphine Sulfate (morphine) 2 mg Q4H PRN IV PAIN Last administered on 02:49; Admin Dose 2 MG; Start 04/29/17 at 03:00 Acetaminophen/ Hydrocodone Bitart 1 tab 1 tab Q6H PRN PO PAIN; Start 04/29/17 at 03:00 Dextrose/Sodium Chloride (D5-1/2ns) 1,000 ml @ 40 mls/hr Q24H IV Last administered on 05/01/17 11:25; Admin Dose 40 MLS/HR; Start 04/29/17 at 10:30 Ascorbic Acid (Vitamin C) 500 mg DAILY PO Last administered on 05/02/17 09:11 ; Admin Dose 500 MG; Start 04/30/17 at 09:00 Folic Acid (Folic Acid) 1 mg DAILY PO Last administered on 05/02/17 09:11; Admin Dose 1 MG; Start 04/30/17 at 09:00 Multivitamins Therapeutic (Theragran) 1 tab DAILY PO Last administered on 09:11; Admin Dose 1 TAB; Start 04/30/17 at 09:00 Acetaminophen (Tylenol Supp) 650 mg Q4H PRN ID PAIN OR TEMP ABOVE 38C Last administered on 04/30/17 14:34; Admin Dose 650 MG; Start 04/29/17 at 20:30 Diagnostic Test (Pha) (Accu-Chek) 1 ea Q6 XX ; Start 04/29/17 at 20:30 Diagnostic Test (Pha) (Accu-Chek) 1 ea 02 XX ; Start 04/30/17 at 02:00 Insulin Aspart (Novolog Insulin Pen) NOVOLOG *MODERATE* ALGORI... Q6 SC Last administered on 05/01/17 17:56; Admin Dose 2 UNIT; Start 04/29/17 at 20:30 Miscellaneous Information 1 ea NOTE XX ; Start 04/29/17 at 20:30 Glucose (Glutose) 15 gm Q15M PRN PO DECREASED GLUCOSE; Start 04/29/17 at 20:30 Glucose (Glutose) 22.5 gm Q15M PRN PO DECREASED GLUCOSE; Start 04/29/17 at 20: 30 Dextrose (D50w Syringe) 25 ml Q15M PRN IV DECREASED GLUCOSE; Start 04/29/17 at 20:30 Dextrose (D50w Syringe) 50 ml Q15M PRN IV DECREASED GLUCOSE Last administered on 05/03/17 06:12; Admin Dose 50 ML; Start 04/29/17 at 20:30 Glucagon (Glucagen) 1 mg Q15M PRN IM DECREASED GLUCOSE; Start 04/29/17 at 20:30 Glucose (Glutose) 15 gm Q15M PRN BUCCAL DECREASED GLUCOSE; Start 04/29/17 at 20 :30 Insulin Glargine 10 unit 10 unit DAILY@20 SC Last administered on 05/02/17 20: 27; Admin Dose 10 UNIT; Start 04/29/17 at 21:30 Vancomycin HCl/ Sodium Chloride (Vancocin/NS) 150 ml @ 75 mls/hr Q24H IVPB Last administered on 05/02/17 15:22; Admin Dose 75 MLS/HR; Start 05/01/17 at 15 :00 Famotidine (Pepcid) 20 mg DAILY PO Last administered on 05/02/17 09:11; Admin Dose 20 MG; Start 05/01/17 at 09:00 Hydralazine HCl (Apresoline) 5 mg Q6H PRN IV SBP>160 Last administered on 12:15; Admin Dose 5 MG; Start 05/01/17 at 10:00 Lisinopril (Zestril) 5 mg BID PO Last administered on 05/02/17 20:19; Admin Dose 5 MG; Start 05/01/17 at 12:30 Metoprolol Tartrate (Lopressor) 50 mg BID PO Last administered on 05/02/17 20: 20; Admin Dose 50 MG; Start 05/02/17 at 21:00 VERONICA HARDING MD May 03, 2017 08:14
[2017-05-03] MEDS: ASCORBIC ACID 500 MG TAB PO SCH (08:52)
[2017-05-03] MEDS: MULTIVITAMINS THERAPEUTIC TAB PO SCH (08:52)
[2017-05-03] MEDS: POLYETHYLENE GLYCOL 17 GM PACKET PO SCH ×2 (08:52→20:52)
[2017-05-03] MEDS: METOPROLOL 50 MG TAB PO SCH ×2 (08:53→20:40)
[2017-05-03] MEDS: LISINOPRIL 5 MG TAB PO SCH ×2 (08:53→20:40)
[2017-05-03] MEDS: SENNA (PO SYG) PO SCH ×2 (08:53→20:52)
[2017-05-03] MEDS: FAMOTIDINE 20 MG TAB PO SCH (08:53)
[2017-05-03] MEDS: FOLIC ACID 1 MG TAB PO SCH (08:54)
[2017-05-03] MEDS: ENOXAPARIN 30 MG/0.3 ML SYG SC SCH (08:57)
--- NOTE | 2017-05-03 10:47 | PN ---
Date/Time of Note Date/Time of Note DATE: 05/03/17 TIME: 10:44 Assessment/Plan VTE Prophylaxis VTE Prophylaxis Intervention: anti-embolic stocking Lines/Catheters IV [facility]from [facility] Peripheral IV Urinary Cath still in place: No Assessment/Plan Problems: (1) Recurrent aspiration bronchitis/pneumonia Status: Chronic Comment: Presently without significant infection but at significant risk for recurrent aspirations. Please see pulmonary design center consultant. Family is presently discussing about whether or not they wish to proceed forward with tubes and or further aggressive care. The grandson informs me they will make a decision by tomorrow (2) Dysphagia Status: Chronic Comment: As above family is making decision about PEG tube Qualifiers: Dysphagia type: unspecified Qualified Code: R13.10 - Dysphagia, unspecified type (3) Underweight due to inadequate caloric intake Status: Chronic Comment: As above (4) Essential hypertension Status: Chronic Comment: Stable at this time (5) Diabetes mellitus type 2 in nonobese Status: Chronic Comment: Adequate control on current medication regimen (6) Parkinson's disease dementia Status: Chronic Comment: This is an advanced case. 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 Occasionally can open eyes. Subjective hx not possible: pt non-verbal Exam/Review of Systems Vital Signs Vitals Vital Signs Date Time Temp Pulse Resp B/P Pulse Ox O2 Delivery O2 Flow Rate FiO2 05/03/17 08:22 85 05/03/17 07:29 97.9 20 133/94 92 05/02/17 23:41 Nasal Cannula 2.0 Intake and Output 05/02/17 05/02/17 05/03/17 15:00 23:00 07:00 Intake Total 240 ml 440 ml Balance 240 ml 440 ml Exam Constitutional: non-verbal Respiratory: clear to auscultation, normal air movement Cardiovascular: nl pulses, regular rate and rhythm Results Result Diagram: 05/03/17 0547 05/03/17 0547 Results 24 hrs Laboratory Tests Test 05/02/17 12:16 05/02/17 18:17 05/02/17 20:14 05/03/17 05:47 Bedside Glucose 110 119 122 White Blood Count 8.3 # Red Blood Count 4.23 Hemoglobin 12.1 Hematocrit 37.7 Mean Corpuscular Volume 89.1 Mean Corpuscular Hemoglobin 28.6 L Mean Corpuscular Hemoglobin Concent 32.1 Red Cell Distribution Width 14.1 Platelet Count 253 Mean Platelet Volume 10.1 Neutrophils % 67.8 Lymphocytes % 19.1 Monocytes % 8.9 Eosinophils % 0.1 Basophils % 0.6 Nucleated Red Blood Cells % 0.0 Neutrophils # (Manual) 6 Lymphocytes # 1.6 Monocytes # 0.7 Eosinophils # 0.0 Basophils # 0.1 Nucleated Red Blood Cells # 0.0 Sodium Level 140 Potassium Level 3.9 Chloride Level 101 Carbon Dioxide Level 30 Anion Gap 13 Blood Urea Nitrogen 11 Creatinine 0.43 L Glucose Level 39 #*L Calcium Level 9.2 Test 05/03/17 06:15 05/03/17 06:32 05/03/17 06:55 Bedside Glucose 394 H 251 H 185 Medications Medications Current Medications Enoxaparin Sodium (Lovenox) 30 mg DAILY SC Last administered on 05/03/17 08:57 ; Admin Dose 30 MG; Start 04/26/17 at 16:00 Lorazepam (Ativan) 0.5 mg Q8H PRN PO ANXIETY Last administered on 04/29/17 12: 26; Admin Dose 0.5 MG; Start 04/26/17 at 21:00 Zolpidem Tartrate (Ambien) 5 mg HS PRN PO INSOMNIA Last administered on 23:21; Admin Dose 5 MG; Start 04/27/17 at 03:00 Acetaminophen (Tylenol Tab) 650 mg Q4H PRN PO PAIN AND OR ELEVATED TEMP Last administered on 04/30/17 08:45; Admin Dose 650 MG; Start 04/27/17 at 08:30 Ondansetron HCl (Zofran Inj) 4 mg Q6H PRN IV NAUSEA AND/OR VOMITING Last administered on 04/28/17 09:07; Admin Dose 4 MG; Start 04/27/17 at 13:30 Bisacodyl (Dulcolax Supp) 10 mg DAILY PRN ME PRN Last administered on 05:07; Admin Dose 10 MG; Start 04/28/17 at 05:00 Senna 5 ml 5 ml BID PO Last administered on 05/03/17 08:53; Admin Dose 5 ML; Start 04/28/17 at 21:00 Cefepime HCl (Maxipime 1gm/50 ml (Pmx)) 50 ml @ 100 mls/hr Q24H IVPB Last administered on 05/02/17 16:32; Admin Dose 100 MLS/HR; Start 04/28/17 at 16:15 Polyethylene Glycol (Miralax) 17 gm BID PO Last administered on 05/03/17 08:52 ; Admin Dose 17 GM; Start 04/28/17 at 21:00 Morphine Sulfate (morphine) 2 mg Q4H PRN IV PAIN Last administered on 02:49; Admin Dose 2 MG; Start 04/29/17 at 03:00 Acetaminophen/ Hydrocodone Bitart 1 tab 1 tab Q6H PRN PO PAIN; Start 04/29/17 at 03:00 Dextrose/Sodium Chloride (D5-1/2ns) 1,000 ml @ 40 mls/hr Q24H IV Last administered on 05/01/17 11:25; Admin Dose 40 MLS/HR; Start 04/29/17 at 10:30 Ascorbic Acid (Vitamin C) 500 mg DAILY PO Last administered on 05/03/17 08:52 ; Admin Dose 500 MG; Start 04/30/17 at 09:00 Folic Acid (Folic Acid) 1 mg DAILY PO Last administered on 05/03/17 08:54; Admin Dose 1 MG; Start 04/30/17 at 09:00 Multivitamins Therapeutic (Theragran) 1 tab DAILY PO Last administered on 08:52; Admin Dose 1 TAB; Start 04/30/17 at 09:00 Acetaminophen (Tylenol Supp) 650 mg Q4H PRN ME PAIN OR TEMP ABOVE 38C Last administered on 04/30/17 14:34; Admin Dose 650 MG; Start 04/29/17 at 20:30 Diagnostic Test (Pha) (Accu-Chek) 1 ea Q6 XX ; Start 04/29/17 at 20:30 Diagnostic Test (Pha) (Accu-Chek) 1 ea 02 XX ; Start 04/30/17 at 02:00 Insulin Aspart (Novolog Insulin Pen) NOVOLOG *MODERATE* ALGORI... Q6 SC Last administered on 05/01/17 17:56; Admin Dose 2 UNIT; Start 04/29/17 at 20:30 Miscellaneous Information 1 ea NOTE XX ; Start 04/29/17 at 20:30 Glucose (Glutose) 15 gm Q15M PRN PO DECREASED GLUCOSE; Start 04/29/17 at 20:30 Glucose (Glutose) 22.5 gm Q15M PRN PO DECREASED GLUCOSE; Start 04/29/17 at 20: 30 Dextrose (D50w Syringe) 25 ml Q15M PRN IV DECREASED GLUCOSE; Start 04/29/17 at 20:30 Dextrose (D50w Syringe) 50 ml Q15M PRN IV DECREASED GLUCOSE Last administered on 05/03/17 06:12; Admin Dose 50 ML; Start 04/29/17 at 20:30 Glucagon (Glucagen) 1 mg Q15M PRN IM DECREASED GLUCOSE; Start 04/29/17 at 20:30 Glucose (Glutose) 15 gm Q15M PRN BUCCAL DECREASED GLUCOSE; Start 04/29/17 at 20 :30 Insulin Glargine 10 unit 10 unit DAILY@20 SC Last administered on 05/02/17 20: 27; Admin Dose 10 UNIT; Start 04/29/17 at 21:30 Vancomycin HCl/ Sodium Chloride (Vancocin/NS) 150 ml @ 75 mls/hr Q24H IVPB Last administered on 05/02/17 15:22; Admin Dose 75 MLS/HR; Start 05/01/17 at 15 :00 Famotidine (Pepcid) 20 mg DAILY PO Last administered on 05/03/17 08:53; Admin Dose 20 MG; Start 05/01/17 at 09:00 Hydralazine HCl (Apresoline) 5 mg Q6H PRN IV SBP>160 Last administered on 12:15; Admin Dose 5 MG; Start 05/01/17 at 10:00 Lisinopril (Zestril) 5 mg BID PO Last administered on 05/03/17 08:53; Admin Dose 5 MG; Start 05/01/17 at 12:30 Metoprolol Tartrate (Lopressor) 50 mg BID PO Last administered on 05/03/17t 08: 53; Admin Dose 50 MG; Start 05/02/17 at 21:00 YELENA IRAHETA MD May 03, 2017 10:47
--- NOTE | 2017-05-03 11:18 | CONS ---
Date/Time of Note Date/Time of Note DATE: 05/03/17 TIME: 11:16 Assessment/Plan Assessment/Plan Additional Assessment/Plan Assessment recommendations; 1. Patient admitted with left lower lobe pneumonia currently on appropriate antibiotic regimen. Likely aspiration. 2. Dementia. 3. Advanced Parkinson's disease. Continue current treatment. Patient's family does not want to have a G-tube placed. Prognosis remains guarded. Consultation Date/Type/Reason Admit Date/Time Apr 26, 2017 at 13:44 Initial Consult Date 04/28/17 Type of Consultation: Pulmonary Referring Provider: TYRONE TEMPLE MD 24 HR Interval Summary Free Text/Dictation Patient condition is stable. Patient still exhibiting signs of advanced dementia and is not much responsive. General exam; elderly woman, awake currently in no distress. Exam/Review of Systems Vital Signs Vitals Vital Signs Date Time Temp Pulse Resp B/P Pulse Ox O2 Delivery O2 Flow Rate FiO2 05/03/17 08:22 85 05/03/17 07:29 97.9 20 133/94 92 05/02/17 23:41 Nasal Cannula 2.0 Intake and Output 05/02/17 05/02/17 05/03/17 15:00 23:00 07:00 Intake Total 240 ml 440 ml Balance 240 ml 440 ml Exam HEENT exam; supple neck, no JVD. No lymphadenopathy. Midline trachea. No thyromegaly. Chest exam; diminished breath sounds bilaterally. S1-S2 audible, no murmurs. Regular rhythm. Abdomen exam; soft, nondistended. Nontender. No organomegaly. Bowel sounds audible. Extremity exam; no peripheral edema. [employer] exam; patient remains minimally responsive. Results Result Diagram: 05/03/17 0547 05/03/17 0547 Results 24 hrs Laboratory Tests Test 05/02/17 12:16 05/02/17 18:17 05/02/17 20:14 05/03/17 05:47 Bedside Glucose 110 119 122 White Blood Count 8.3 # Red Blood Count 4.23 Hemoglobin 12.1 Hematocrit 37.7 Mean Corpuscular Volume 89.1 Mean Corpuscular Hemoglobin 28.6 L Mean Corpuscular Hemoglobin Concent 32.1 Red Cell Distribution Width 14.1 Platelet Count 253 Mean Platelet Volume 10.1 Neutrophils % 67.8 Lymphocytes % 19.1 Monocytes % 8.9 Eosinophils % 0.1 Basophils % 0.6 Nucleated Red Blood Cells % 0.0 Neutrophils # (Manual) 6 Lymphocytes # 1.6 Monocytes # 0.7 Eosinophils # 0.0 Basophils # 0.1 Nucleated Red Blood Cells # 0.0 Sodium Level 140 Potassium Level 3.9 Chloride Level 101 Carbon Dioxide Level 30 Anion Gap 13 Blood Urea Nitrogen 11 Creatinine 0.43 L Glucose Level 39 #*L Calcium Level 9.2 Test 05/03/17 06:15 05/03/17 06:32 05/03/17 06:55 Bedside Glucose 394 H 251 H 185 Medications Medications Current Medications Enoxaparin Sodium (Lovenox) 30 mg DAILY SC Last administered on 05/03/17 08:57 ; Admin Dose 30 MG; Start 04/26/17 at 16:00 Lorazepam (Ativan) 0.5 mg Q8H PRN PO ANXIETY Last administered on 04/29/17 12: 26; Admin Dose 0.5 MG; Start 04/26/17 at 21:00 Zolpidem Tartrate (Ambien) 5 mg HS PRN PO INSOMNIA Last administered on 23:21; Admin Dose 5 MG; Start 04/27/17 at 03:00 Acetaminophen (Tylenol Tab) 650 mg Q4H PRN PO PAIN AND OR ELEVATED TEMP Last administered on 04/30/17 08:45; Admin Dose 650 MG; Start 04/27/17 at 08:30 Ondansetron HCl (Zofran Inj) 4 mg Q6H PRN IV NAUSEA AND/OR VOMITING Last administered on 04/28/17 09:07; Admin Dose 4 MG; Start 04/27/17 at 13:30 Bisacodyl (Dulcolax Supp) 10 mg DAILY PRN MD PRN Last administered on 05:07; Admin Dose 10 MG; Start 04/28/17 at 05:00 Senna 5 ml 5 ml BID PO Last administered on 05/03/17 08:53; Admin Dose 5 ML; Start 04/28/17 at 21:00 Cefepime HCl (Maxipime 1gm/50 ml (Pmx)) 50 ml @ 100 mls/hr Q24H IVPB Last administered on 05/02/17 16:32; Admin Dose 100 MLS/HR; Start 04/28/17 at 16:15 Polyethylene Glycol (Miralax) 17 gm BID PO Last administered on 05/03/17 08:52 ; Admin Dose 17 GM; Start 04/28/17 at 21:00 Morphine Sulfate (morphine) 2 mg Q4H PRN IV PAIN Last administered on 02:49; Admin Dose 2 MG; Start 04/29/17 at 03:00 Acetaminophen/ Hydrocodone Bitart 1 tab 1 tab Q6H PRN PO PAIN; Start 04/29/17 at 03:00 Dextrose/Sodium Chloride (D5-1/2ns) 1,000 ml @ 40 mls/hr Q24H IV Last administered on 05/01/17 11:25; Admin Dose 40 MLS/HR; Start 04/29/17 at 10:30 Ascorbic Acid (Vitamin C) 500 mg DAILY PO Last administered on 05/03/17 08:52 ; Admin Dose 500 MG; Start 04/30/17 at 09:00 Folic Acid (Folic Acid) 1 mg DAILY PO Last administered on 05/03/17 08:54; Admin Dose 1 MG; Start 04/30/17 at 09:00 Multivitamins Therapeutic (Theragran) 1 tab DAILY PO Last administered on 08:52; Admin Dose 1 TAB; Start 04/30/17 at 09:00 Acetaminophen (Tylenol Supp) 650 mg Q4H PRN MD PAIN OR TEMP ABOVE 38C Last administered on 04/30/17 14:34; Admin Dose 650 MG; Start 04/29/17 at 20:30 Diagnostic Test (Pha) (Accu-Chek) 1 ea Q6 XX ; Start 04/29/17 at 20:30 Diagnostic Test (Pha) (Accu-Chek) 1 ea 02 XX ; Start 04/30/17 at 02:00 Insulin Aspart (Novolog Insulin Pen) NOVOLOG *MODERATE* ALGORI... Q6 SC Last administered on 05/01/17 17:56; Admin Dose 2 UNIT; Start 04/29/17 at 20:30 Miscellaneous Information 1 ea NOTE XX ; Start 04/29/17 at 20:30 Glucose (Glutose) 15 gm Q15M PRN PO DECREASED GLUCOSE; Start 04/29/17 at 20:30 Glucose (Glutose) 22.5 gm Q15M PRN PO DECREASED GLUCOSE; Start 04/29/17 at 20: 30 Dextrose (D50w Syringe) 25 ml Q15M PRN IV DECREASED GLUCOSE; Start 04/29/17 at 20:30 Dextrose (D50w Syringe) 50 ml Q15M PRN IV DECREASED GLUCOSE Last administered on 05/03/17 06:12; Admin Dose 50 ML; Start 04/29/17 at 20:30 Glucagon (Glucagen) 1 mg Q15M PRN IM DECREASED GLUCOSE; Start 04/29/17 at 20:30 Glucose (Glutose) 15 gm Q15M PRN BUCCAL DECREASED GLUCOSE; Start 04/29/17 at 20 :30 Insulin Glargine 10 unit 10 unit DAILY@20 SC Last administered on 05/02/17 20: 27; Admin Dose 10 UNIT; Start 04/29/17 at 21:30 Vancomycin HCl/ Sodium Chloride (Vancocin/NS) 150 ml @ 75 mls/hr Q24H IVPB Last administered on 05/02/17 15:22; Admin Dose 75 MLS/HR; Start 05/01/17 at 15 :00 Famotidine (Pepcid) 20 mg DAILY PO Last administered on 05/03/17 08:53; Admin Dose 20 MG; Start 05/01/17 at 09:00 Hydralazine HCl (Apresoline) 5 mg Q6H PRN IV SBP>160 Last administered on 12:15; Admin Dose 5 MG; Start 05/01/17 at 10:00 Lisinopril (Zestril) 5 mg BID PO Last administered on 05/03/17 08:53; Admin Dose 5 MG; Start 05/01/17 at 12:30 Metoprolol Tartrate (Lopressor) 50 mg BID PO Last administered on 05/03/17 08: 53; Admin Dose 50 MG; Start 05/02/17 at 21:00 CHRISTIAN GAMEZ May 03, 2017 11:18
[2017-05-03] MEDS ORDERED: OLOP2.5D BOTH EYES (11:29)
[2017-05-03] MEDS: DEXTROSE 5%-0.45% NACL 1,000 ML IV SCH (11:31)
--- NOTE | 2017-05-03 13:07 | PN ---
Date/Time of Note Date/Time of Note DATE: 05/03/17 TIME: 13:06 Assessment/Plan VTE Prophylaxis VTE Prophylaxis Intervention: SCD's Lines/Catheters IV Catheter Type (from [facility]): Peripheral IV Urinary Cath still in place: No Assessment/Plan Assessment/Plan [facility] L[facility] HCIS Progress Note Adult Patient Name: Nancy Au Unit Number: [id number] Date of : 1930 Patient Status: Admitted Inpatient Attending Doctor: Hillary Barker MD Date/Time of Note Date/Time of Note Date/Time of Note DATE: 05/02/17 TIME: 10:50 Assessment/Plan Assessment/Plan VTE Prophylaxis VTE Prophylaxis Intervention: SCD's Lines/Catheters IV Catheter Type (from [facility]): Peripheral IV Urinary Cath still in place: No Assessment/Plan Assessment/Plan PROGRESS NOTE Assessment * Dysphagia/failed swallowing evaluation * Intractable vomiting resolved * Pleural effusion * S/P thoracentesis * Parkinson * Plan * Family has decided emphatically not to have EGD with PEG * We will sign off the case and remain available upon request Subjective Subjective 24 Hr Interval Summary Free Text/Dictation * Course reviewed with RN * Failed swallowing evaluation * Family reviewed options and spokesperson states that emphatically no PEG is acceptable Exam Constitutional: frail, barely responsive Neck: non-tender, supple Respiratory: crackles/rales, diminished breath sounds Cardiovascular: nl pulses, regular rate and rhythm Gastrointestinal: non-tender, soft Musculoskeletal: muscle weakness Extremities: edema Skin: rash or lesions Exam/Review of Systems Vital Signs Vitals Vital Signs Date Time Temp Pulse Resp B/P Pulse Ox O2 Delivery O2 Flow Rate FiO2 05/03/17 08:22 85 05/03/17 08:00 Nasal Cannula 2.0 05/03/17 07:29 97.9 20 133/94 92 Intake and Output 05/02/17 05/02/17 05/03/17 15:00 23:00 07:00 Intake Total 240 ml 440 ml Balance 240 ml 440 ml Results Result Diagram: 05/03/17 0547 05/03/17 0547 Results 24 hrs Laboratory Tests Test 05/02/17 18:17 05/02/17 20:14 05/03/17 05:47 05/03/17 06:15 Bedside Glucose 119 122 394 H White Blood Count 8.3 # Red Blood Count 4.23 Hemoglobin 12.1 Hematocrit 37.7 Mean Corpuscular Volume 89.1 Mean Corpuscular Hemoglobin 28.6 L Mean Corpuscular Hemoglobin Concent 32.1 Red Cell Distribution Width 14.1 Platelet Count 253 Mean Platelet Volume 10.1 Neutrophils % 67.8 Lymphocytes % 19.1 Monocytes % 8.9 Eosinophils % 0.1 Basophils % 0.6 Nucleated Red Blood Cells % 0.0 Neutrophils # (Manual) 6 Lymphocytes # 1.6 Monocytes # 0.7 Eosinophils # 0.0 Basophils # 0.1 Nucleated Red Blood Cells # 0.0 Sodium Level 140 Potassium Level 3.9 Chloride Level 101 Carbon Dioxide Level 30 Anion Gap 13 Blood Urea Nitrogen 11 Creatinine 0.43 L Glucose Level 39 #*L Calcium Level 9.2 Test 05/03/17 06:32 05/03/17 06:55 05/03/17 11:33 Bedside Glucose 251 H 185 149 Medications Medications Current Medications Enoxaparin Sodium (Lovenox) 30 mg DAILY SC Last administered on 05/03/17 08:57 ; Admin Dose 30 MG; Start 04/26/17 at 16:00 Lorazepam (Ativan) 0.5 mg Q8H PRN PO ANXIETY Last administered on 04/29/17 12: 26; Admin Dose 0.5 MG; Start 04/26/17 at 21:00 Zolpidem Tartrate (Ambien) 5 mg HS PRN PO INSOMNIA Last administered on 23:21; Admin Dose 5 MG; Start 04/27/17 at 03:00 Acetaminophen (Tylenol Tab) 650 mg Q4H PRN PO PAIN AND OR ELEVATED TEMP Last administered on 04/30/17 08:45; Admin Dose 650 MG; Start 04/27/17 at 08:30 Ondansetron HCl (Zofran Inj) 4 mg Q6H PRN IV NAUSEA AND/OR VOMITING Last administered on 04/28/17 09:07; Admin Dose 4 MG; Start 04/27/17 at 13:30 Bisacodyl (Dulcolax Supp) 10 mg DAILY PRN [place] PRN Last administered on 05:07; Admin Dose 10 MG; Start 04/28/17 at 05:00 Senna 5 ml 5 ml BID PO Last administered on 05/03/17 08:53; Admin Dose 5 ML; Start 04/28/17 at 21:00 Cefepime HCl (Maxipime 1gm/50 ml (Pmx)) 50 ml @ 100 mls/hr Q24H IVPB Last administered on 05/02/17 16:32; Admin Dose 100 MLS/HR; Start 04/28/17 at 16:15 Polyethylene Glycol (Miralax) 17 gm BID PO Last administered on 05/03/17 08:52 ; Admin Dose 17 GM; Start 04/28/17 at 21:00 Morphine Sulfate (morphine) 2 mg Q4H PRN IV PAIN Last administered on 02:49; Admin Dose 2 MG; Start 04/29/17 at 03:00 Acetaminophen/ Hydrocodone Bitart 1 tab 1 tab Q6H PRN PO PAIN; Start 04/29/17 at 03:00 Dextrose/Sodium Chloride (D5-1/2ns) 1,000 ml @ 40 mls/hr Q24H IV Last administered on 05/03/17 11:31; Admin Dose 40 MLS/HR; Start 04/29/17 at 10:30 Ascorbic Acid (Vitamin C) 500 mg DAILY PO Last administered on 05/03/17 08:52 ; Admin Dose 500 MG; Start 04/30/17 at 09:00 Folic Acid (Folic Acid) 1 mg DAILY PO Last administered on 05/03/17 08:54; Admin Dose 1 MG; Start 04/30/17 at 09:00 Multivitamins Therapeutic (Theragran) 1 tab DAILY PO Last administered on 08:52; Admin Dose 1 TAB; Start 04/30/17 at 09:00 Acetaminophen (Tylenol Supp) 650 mg Q4H PRN [place] PAIN OR TEMP ABOVE 38C Last administered on 04/30/17 14:34; Admin Dose 650 MG; Start 04/29/17 at 20:30 Diagnostic Test (Pha) (Accu-Chek) 1 ea Q6 XX ; Start 04/29/17 at 20:30 Diagnostic Test (Pha) (Accu-Chek) 1 ea 02 XX ; Start 04/30/17 at 02:00 Insulin Aspart (Novolog Insulin Pen) NOVOLOG *MODERATE* ALGORI... Q6 SC Last administered on 8/20/17at 11:38; Admin Dose 1 UNIT; Start 04/29/17 at 20:30 Miscellaneous Information 1 ea NOTE XX ; Start 04/29/17 at 20:30 Glucose (Glutose) 15 gm Q15M PRN PO DECREASED GLUCOSE; Start 04/29/17 at 20:30 Glucose (Glutose) 22.5 gm Q15M PRN PO DECREASED GLUCOSE; Start 04/29/17 at 20: 30 Dextrose (D50w Syringe) 25 ml Q15M PRN IV DECREASED GLUCOSE; Start 04/29/17 at 20:30 Dextrose (D50w Syringe) 50 ml Q15M PRN IV DECREASED GLUCOSE Last administered on 05/03/17 06:12; Admin Dose 50 ML; Start 04/29/17 at 20:30 Glucagon (Glucagen) 1 mg Q15M PRN IM DECREASED GLUCOSE; Start 04/29/17 at 20:30 Glucose (Glutose) 15 gm Q15M PRN BUCCAL DECREASED GLUCOSE; Start 04/29/17 at 20 :30 Insulin Glargine 10 unit 10 unit DAILY@20 SC Last administered on 05/02/17 20: 27; Admin Dose 10 UNIT; Start 04/29/17 at 21:30 Vancomycin HCl/ Sodium Chloride (Vancocin/NS) 150 ml @ 75 mls/hr Q24H IVPB Last administered on 05/02/17 15:22; Admin Dose 75 MLS/HR; Start 05/01/17 at 15 :00 Famotidine (Pepcid) 20 mg DAILY PO Last administered on 05/03/17 08:53; Admin Dose 20 MG; Start 05/01/17 at 09:00 Hydralazine HCl (Apresoline) 5 mg Q6H PRN IV SBP>160 Last administered on 12:15; Admin Dose 5 MG; Start 05/01/17 at 10:00 Lisinopril (Zestril) 5 mg BID PO Last administered on 05/03/17 08:53; Admin Dose 5 MG; Start 05/01/17 at 12:30 Metoprolol Tartrate (Lopressor) 50 mg BID PO Last administered on 05/03/17 08: 53; Admin Dose 50 MG; Start 05/02/17 at 21:00 CLAUDETTE JACKSON MD May 03, 2017 13:07
--- NOTE | 2017-05-03 14:21 | CONS ---
Date/Time of Note Date/Time of Note DATE: 05/03/17 TIME: 14:19 Assessment/Plan Assessment/Plan Chief Complaint/Hosp Course SUBJECTIVE: No acute changes, looks comfortable, no fevers. MICROBIOLOGY: Blood cultures remain negative. Sputum culture negative. Aspirated pleural fluid cultures negative as well. ANTIMICROBIALS: Vancomycin and cefepime. PHYSICAL EXAMINATION: GENERAL: This is a fragile, chronically ill-appearing, elderly woman, who is lethargic and in no distress. HEENT: Head atraumatic, normocephalic. Sclerae anicteric. Buccal mucosa dry. NECK: Supple. CHEST: Rise symmetrical. Breath sounds diminished at the bases. HEART: S1, S2. ABDOMEN: Soft. Bowel sounds present. EXTREMITIES: With trace edema. ASSESSMENT: 1. Sepsis with fevers and leukocytosis, possibly ongoing aspiration. 2. Exudative pleural effusions, status post thoracentesis on 04/27, so far fluid cultures being negative. 3. Chronic encephalopathy. 4. Dysphagia. 5. Diabetes and hypertension. PLAN: Patient remains stable wbc decreasing, continue abx, aspiration precautions, family declined PEG DW staff Problems: Consultation Date/Type/Reason Admit Date/Time Apr 26, 2017 at 13:44 Initial Consult Date 04/28/17 Type of Consultation: id Referring Provider: TYRONE TEMPLE MD Exam/Review of Systems Vital Signs Vitals Vital Signs Date Time Temp Pulse Resp B/P Pulse Ox O2 Delivery O2 Flow Rate FiO2 05/03/17 13:25 119 05/03/17 08:00 Nasal Cannula 2.0 05/03/17 07:29 97.9 20 133/94 92 Intake and Output 05/02/17 05/02/17 05/03/17 15:00 23:00 07:00 Intake Total 240 ml 440 ml Balance 240 ml 440 ml Results Result Diagram: 05/03/17 0547 05/03/17 0547 Results 24 hrs Laboratory Tests Test 05/02/17 18:17 05/02/17 20:14 05/03/17 05:47 05/03/17 06:15 Bedside Glucose 119 122 394 H White Blood Count 8.3 # Red Blood Count 4.23 Hemoglobin 12.1 Hematocrit 37.7 Mean Corpuscular Volume 89.1 Mean Corpuscular Hemoglobin 28.6 L Mean Corpuscular Hemoglobin Concent 32.1 Red Cell Distribution Width 14.1 Platelet Count 253 Mean Platelet Volume 10.1 Neutrophils % 67.8 Lymphocytes % 19.1 Monocytes % 8.9 Eosinophils % 0.1 Basophils % 0.6 Nucleated Red Blood Cells % 0.0 Neutrophils # (Manual) 6 Lymphocytes # 1.6 Monocytes # 0.7 Eosinophils # 0.0 Basophils # 0.1 Nucleated Red Blood Cells # 0.0 Sodium Level 140 Potassium Level 3.9 Chloride Level 101 Carbon Dioxide Level 30 Anion Gap 13 Blood Urea Nitrogen 11 Creatinine 0.43 L Glucose Level 39 #*L Calcium Level 9.2 Test 05/03/17 06:32 05/03/17 06:55 05/03/17 11:33 Bedside Glucose 251 H 185 149 Medications Medications Current Medications Enoxaparin Sodium (Lovenox) 30 mg DAILY SC Last administered on 05/03/17 08:57 ; Admin Dose 30 MG; Start 04/26/17 at 16:00 Lorazepam (Ativan) 0.5 mg Q8H PRN PO ANXIETY Last administered on 04/29/17 12: 26; Admin Dose 0.5 MG; Start 04/26/17 at 21:00 Zolpidem Tartrate (Ambien) 5 mg HS PRN PO INSOMNIA Last administered on 23:21; Admin Dose 5 MG; Start 04/27/17 at 03:00 Acetaminophen (Tylenol Tab) 650 mg Q4H PRN PO PAIN AND OR ELEVATED TEMP Last administered on 04/30/17 08:45; Admin Dose 650 MG; Start 04/27/17 at 08:30 Ondansetron HCl (Zofran Inj) 4 mg Q6H PRN IV NAUSEA AND/OR VOMITING Last administered on 04/28/17 09:07; Admin Dose 4 MG; Start 04/27/17 at 13:30 Bisacodyl (Dulcolax Supp) 10 mg DAILY PRN [place] PRN Last administered on 05:07; Admin Dose 10 MG; Start 04/28/17 at 05:00 Senna 5 ml 5 ml BID PO Last administered on 05/03/17 08:53; Admin Dose 5 ML; Start 04/28/17 at 21:00 Cefepime HCl (Maxipime 1gm/50 ml (Pmx)) 50 ml @ 100 mls/hr Q24H IVPB Last administered on 05/02/17 16:32; Admin Dose 100 MLS/HR; Start 04/28/17 at 16:15 Polyethylene Glycol (Miralax) 17 gm BID PO Last administered on 05/03/17 08:52 ; Admin Dose 17 GM; Start 04/28/17 at 21:00 Morphine Sulfate (morphine) 2 mg Q4H PRN IV PAIN Last administered on 02:49; Admin Dose 2 MG; Start 04/29/17 at 03:00 Acetaminophen/ Hydrocodone Bitart 1 tab 1 tab Q6H PRN PO PAIN; Start 04/29/17 at 03:00 Dextrose/Sodium Chloride (D5-1/2ns) 1,000 ml @ 40 mls/hr Q24H IV Last administered on 05/03/17 11:31; Admin Dose 40 MLS/HR; Start 04/29/17 at 10:30 Ascorbic Acid (Vitamin C) 500 mg DAILY PO Last administered on 05/03/17 08:52 ; Admin Dose 500 MG; Start 04/30/17 at 09:00 Folic Acid (Folic Acid) 1 mg DAILY PO Last administered on 05/03/17 08:54; Admin Dose 1 MG; Start 04/30/17 at 09:00 Multivitamins Therapeutic (Theragran) 1 tab DAILY PO Last administered on 08:52; Admin Dose 1 TAB; Start 04/30/17 at 09:00 Acetaminophen (Tylenol Supp) 650 mg Q4H PRN [place] PAIN OR TEMP ABOVE 38C Last administered on 04/30/17 14:34; Admin Dose 650 MG; Start 04/29/17 at 20:30 Diagnostic Test (Pha) (Accu-Chek) 1 ea Q6 XX ; Start 04/29/17 at 20:30 Diagnostic Test (Pha) (Accu-Chek) 1 ea 02 XX ; Start 04/30/17 at 02:00 Insulin Aspart (Novolog Insulin Pen) NOVOLOG *MODERATE* ALGORI... Q6 SC Last administered on 05/03/17 11:38; Admin Dose 1 UNIT; Start 04/29/17 at 20:30 Miscellaneous Information 1 ea NOTE XX ; Start 04/29/17 at 20:30 Glucose (Glutose) 15 gm Q15M PRN PO DECREASED GLUCOSE; Start 04/29/17 at 20:30 Glucose (Glutose) 22.5 gm Q15M PRN PO DECREASED GLUCOSE; Start 04/29/17 at 20: 30 Dextrose (D50w Syringe) 25 ml Q15M PRN IV DECREASED GLUCOSE; Start 04/29/17 at 20:30 Dextrose (D50w Syringe) 50 ml Q15M PRN IV DECREASED GLUCOSE Last administered on 05/03/17 06:12; Admin Dose 50 ML; Start 04/29/17 at 20:30 Glucagon (Glucagen) 1 mg Q15M PRN IM DECREASED GLUCOSE; Start 04/29/17 at 20:30 Glucose (Glutose) 15 gm Q15M PRN BUCCAL DECREASED GLUCOSE; Start 04/29/17 at 20 :30 Insulin Glargine 10 unit 10 unit DAILY@20 SC Last administered on 05/02/17 20: 27; Admin Dose 10 UNIT; Start 04/29/17 at 21:30 Vancomycin HCl/ Sodium Chloride (Vancocin/NS) 150 ml @ 75 mls/hr Q24H IVPB Last administered on 05/02/17 15:22; Admin Dose 75 MLS/HR; Start 05/01/17 at 15 :00 Famotidine (Pepcid) 20 mg DAILY PO Last administered on 05/03/17 08:53; Admin Dose 20 MG; Start 05/01/17 at 09:00 Hydralazine HCl (Apresoline) 5 mg Q6H PRN IV SBP>160 Last administered on 12:15; Admin Dose 5 MG; Start 05/01/17 at 10:00 Lisinopril (Zestril) 5 mg BID PO Last administered on 05/03/17 08:53; Admin Dose 5 MG; Start 05/01/17 at 12:30 Metoprolol Tartrate (Lopressor) 50 mg BID PO Last administered on 05/03/17 08: 53; Admin Dose 50 MG; Start 05/02/17 at 21:00 Miscellaneous Information (*Rx Drug Level Order Reminder*) VANCOMYCIN TROUGH AT 1400 ONCE ONCE XX ; Start 05/04/17 at 14:00; Stop 05/04/17 at 14:01 ANTONI MATHEWS NP May 03, 2017 14:21
[2017-05-03] MEDS: VANCOMYCIN 750 MG in SOD CHLORIDE 0.9% 150 ML IVPB SCH (15:21)
[2017-05-03] MEDS: CEFEPIME 1GM/50 ML (PMX) 50 ML IVPB SCH (17:32)
[2017-05-03] MEDS: INSULIN GLARGINE [LANtus] 3 ML PEN SC SCH (20:48)
[2017-05-04] VITALS (13 sets, daily range): BP systolic 129–180; BP diastolic 59–93; PULSE 68–91; RESP 18–20
[2017-05-04] MEDS: ACCU-CHEK XX SCH ×5 (01:46→18:00)
[2017-05-04] MEDS: INSULIN ASPART [NOVOLOG] 3 ML PEN SC SCH ×4 (06:00→17:53)
--- NOTE | 2017-05-04 07:48 | PN ---
Date/Time of Note Date/Time of Note DATE: 05/04/17 TIME: 07:48 Assessment/Plan VTE Prophylaxis VTE Prophylaxis Intervention: SCD's Lines/Catheters IV [facility] Peripheral IV Urinary Cath still in place: No Assessment/Plan Assessment/Plan Possible atrial flutter versus artifact, currently sinus rhythm Preserved ejection fraction Pulmonary hypertension Tricuspid and mitral valve regurgitation Parkinson's Failure to thrive with dysphagia Hypertension Pleural effusion status post thoracentesis -On review of telemetry, patient with significant artifact secondary to Parkinson's. On "ladle cleaner" strips, patient currently in sinus rhythm. At the current time patient remains in sinus rhythm. Continue beta-jesus. the risk is anticoagulation likely outweigh the benefits at the current time. Would continue beta-jesus, maintain potassium above 4.0 and magnesium above 2.0 to decrease the risk of arrhythmias. Would start CESARIO inhibitor if no contraindication for assistance with blood pressure control. Subjective 24 Hr Interval Summary Free Text/Dictation The patient stable overnight Exam/Review of Systems Vital Signs Vitals Vital Signs Date Time Temp Pulse Resp B/P Pulse Ox O2 Delivery O2 Flow Rate FiO2 05/04/17 04:39 98.6 66 20 129/59 96 05/04/17 01:59 Nasal Cannula 2.0 Intake and Output 05/03/17 05/03/17 05/04/17 15:00 23:00 07:00 Intake Total 265 ml 450 ml 485 ml Balance 265 ml 450 ml 485 ml Results Result Diagram: 05/03/17 0547 05/03/17 0547 Results 24 hrs Laboratory Tests Test 05/03/17 11:33 05/03/17 17:50 05/03/17 20:35 05/04/17 00:55 Bedside Glucose 149 98 145 51 L Test 05/04/17 01:25 05/04/17 02:22 05/04/17 06:28 Bedside Glucose 133 97 118 Medications Medications Current Medications Enoxaparin Sodium (Lovenox) 30 mg DAILY SC Last administered on 05/03/17 08:57 ; Admin Dose 30 MG; Start 04/26/17 at 16:00 Lorazepam (Ativan) 0.5 mg Q8H PRN PO ANXIETY Last administered on 04/29/17 12: 26; Admin Dose 0.5 MG; Start 04/26/17 at 21:00 Zolpidem Tartrate (Ambien) 5 mg HS PRN PO INSOMNIA Last administered on 23:21; Admin Dose 5 MG; Start 04/27/17 at 03:00 Acetaminophen (Tylenol Tab) 650 mg Q4H PRN PO PAIN AND OR ELEVATED TEMP Last administered on 04/30/17 08:45; Admin Dose 650 MG; Start 04/27/17 at 08:30 Ondansetron HCl (Zofran Inj) 4 mg Q6H PRN IV NAUSEA AND/OR VOMITING Last administered on 04/28/17 09:07; Admin Dose 4 MG; Start 04/27/17 at 13:30 Bisacodyl (Dulcolax Supp) 10 mg DAILY PRN [place] PRN Last administered on 05:07; Admin Dose 10 MG; Start 04/28/17 at 05:00 Senna 5 ml 5 ml BID PO Last administered on 05/03/17 20:52; Admin Dose 5 ML; Start 04/28/17 at 21:00 Cefepime HCl (Maxipime 1gm/50 ml (Pmx)) 50 ml @ 100 mls/hr Q24H IVPB Last administered on 05/03/17 17:32; Admin Dose 100 MLS/HR; Start 04/28/17 at 16:15 Polyethylene Glycol (Miralax) 17 gm BID PO Last administered on 05/03/17 08:52 ; Admin Dose 17 GM; Start 04/28/17 at 21:00 Morphine Sulfate (morphine) 2 mg Q4H PRN IV PAIN Last administered on 02:49; Admin Dose 2 MG; Start 04/29/17 at 03:00 Acetaminophen/ Hydrocodone Bitart 1 tab 1 tab Q6H PRN PO PAIN; Start 04/29/17 at 03:00 Dextrose/Sodium Chloride (D5-1/2ns) 1,000 ml @ 40 mls/hr Q24H IV Last administered on 05/03/17 11:31; Admin Dose 40 MLS/HR; Start 04/29/17 at 10:30 Ascorbic Acid (Vitamin C) 500 mg DAILY PO Last administered on 05/03/17 08:52 ; Admin Dose 500 MG; Start 04/30/17 at 09:00 Folic Acid (Folic Acid) 1 mg DAILY PO Last administered on 05/03/17 08:54; Admin Dose 1 MG; Start 04/30/17 at 09:00 Multivitamins Therapeutic (Theragran) 1 tab DAILY PO Last administered on 08:52; Admin Dose 1 TAB; Start 04/30/17 at 09:00 Acetaminophen (Tylenol Supp) 650 mg Q4H PRN [place] PAIN OR TEMP ABOVE 38C Last administered on 04/30/17 14:34; Admin Dose 650 MG; Start 04/29/17 at 20:30 Diagnostic Test (Pha) (Accu-Chek) 1 ea Q6 XX ; Start 04/29/17 at 20:30 Diagnostic Test (Pha) (Accu-Chek) 1 ea 02 XX ; Start 04/30/17 at 02:00 Insulin Aspart (Novolog Insulin Pen) NOVOLOG *MODERATE* ALGORI... Q6 SC Last administered on 05/03/17 11:38; Admin Dose 1 UNIT; Start 04/29/17 at 20:30 Miscellaneous Information 1 ea NOTE XX ; Start 04/29/17 at 20:30 Glucose (Glutose) 15 gm Q15M PRN PO DECREASED GLUCOSE; Start 04/29/17 at 20:30 Glucose (Glutose) 22.5 gm Q15M PRN PO DECREASED GLUCOSE; Start 04/29/17 at 20: 30 Dextrose (D50w Syringe) 25 ml Q15M PRN IV DECREASED GLUCOSE Last administered on 05/04/17 01:04; Admin Dose 25 ML; Start 04/29/17 at 20:30 Dextrose (D50w Syringe) 50 ml Q15M PRN IV DECREASED GLUCOSE Last administered on 05/03/17 06:12; Admin Dose 50 ML; Start 04/29/17 at 20:30 Glucagon (Glucagen) 1 mg Q15M PRN IM DECREASED GLUCOSE; Start 04/29/17 at 20:30 Glucose (Glutose) 15 gm Q15M PRN BUCCAL DECREASED GLUCOSE; Start 04/29/17 at 20 :30 Insulin Glargine 10 unit 10 unit DAILY@20 SC Last administered on 05/03/17 20: 48; Admin Dose 10 UNIT; Start 04/29/17 at 21:30 Vancomycin HCl/ Sodium Chloride (Vancocin/NS) 150 ml @ 75 mls/hr Q24H IVPB Last administered on 05/03/17 15:21; Admin Dose 75 MLS/HR; Start 05/01/17 at 15 :00 Famotidine (Pepcid) 20 mg DAILY PO Last administered on 05/03/17 08:53; Admin Dose 20 MG; Start 05/01/17 at 09:00 Hydralazine HCl (Apresoline) 5 mg Q6H PRN IV SBP>160 Last administered on 12:15; Admin Dose 5 MG; Start 05/01/17 at 10:00 Lisinopril (Zestril) 5 mg BID PO Last administered on 05/03/17 20:40; Admin Dose 5 MG; Start 05/01/17 at 12:30 Metoprolol Tartrate (Lopressor) 50 mg BID PO Last administered on 05/03/17 20: 40; Admin Dose 50 MG; Start 05/02/17 at 21:00 Miscellaneous Information (*Rx Drug Level Order Reminder*) VANCOMYCIN TROUGH AT 1400 ONCE ONCE XX ; Start 05/04/17 at 14:00; Stop 05/04/17 at 14:01 DOMINIQUE MACK MD May 04, 2017 07:48
[2017-05-04] MEDS: ASCORBIC ACID 500 MG TAB PO SCH (09:00)
[2017-05-04] MEDS: MULTIVITAMINS THERAPEUTIC TAB PO SCH (09:00)
[2017-05-04] MEDS: SENNA (PO SYG) PO SCH ×2 (09:00→21:21)
[2017-05-04] MEDS: POLYETHYLENE GLYCOL 17 GM PACKET PO SCH ×2 (09:00→21:00)
[2017-05-04] MEDS: FOLIC ACID 1 MG TAB PO SCH (09:00)
[2017-05-04] MEDS: METOPROLOL 50 MG TAB PO SCH ×2 (09:03→21:20)
[2017-05-04] MEDS: LISINOPRIL 5 MG TAB PO SCH ×2 (09:04→21:22)
[2017-05-04] MEDS: FAMOTIDINE 20 MG TAB PO SCH (09:04)
[2017-05-04] MEDS: ENOXAPARIN 30 MG/0.3 ML SYG SC SCH (09:08)
[2017-05-04] MEDS: DEXTROSE 5%-0.45% NACL 1,000 ML IV SCH ×2 (10:30→18:01)
--- NOTE | 2017-05-04 11:26 | CONS ---
Date/Time of Note Date/Time of Note DATE: 05/04/17 TIME: 11:24 Assessment/Plan Assessment/Plan Additional Assessment/Plan Assessment and recommendations; 1. Patient admitted with left lower lobe pneumonia. 2. Advanced dementia. 3. Advanced Parkinson's disease. 4. Poor oral intake. Family still contemplating G-tube placement. Continue current treatment. Patient will need to have a G-tube or PEG tube placed for feeding purposes. Consider stopping antibiotics. Prognosis remains guarded. Consultation Date/Type/Reason Admit Date/Time Apr 26, 2017 at 13:44 Initial Consult Date 04/28/17 Type of Consultation: Pulmonary/critical care Referring Provider: TYRONE TEMPLE MD 24 HR Interval Summary Free Text/Dictation Patient condition remains tenuous at best. Patient exhibiting very poor mental status and poor oral intake. General exam; elderly woman, unresponsive, currently in no distress. Surrounded by extended family. Exam/Review of Systems Vital Signs Vitals Vital Signs Date Time Temp Pulse Resp B/P Pulse Ox O2 Delivery O2 Flow Rate FiO2 05/04/17 10:11 Nasal Cannula 2.0 05/04/17 08:15 73 05/04/17 08:07 98.5 18 140/93 96 Intake and Output 05/03/17 05/03/17 05/04/17 15:00 23:00 07:00 Intake Total 265 ml 450 ml 485 ml Balance 265 ml 450 ml 485 ml Exam HEENT exam; supple neck, no JVD. No lymphadenopathy. Midline trachea. No thyromegaly. Patient is edentulous. Pupils are small bilaterally. Chest exam; diminished but clear breath sound. S1-S2 audible, no murmurs. Regular rhythm. Abdomen exam; soft, no organomegaly. Bowel sounds audible. Nontender. Extremity exam; no peripheral edema. DOCUMENT MANAGEMENT ANALYST exam; patient remains essentially unresponsive. Results Result Diagram: 05/03/17 0547 05/03/17 0547 Results 24 hrs Laboratory Tests Test 05/03/17 11:33 05/03/17 17:50 05/03/17 20:35 05/04/17 00:55 Bedside Glucose 149 98 145 51 L Test 05/04/17 01:25 05/04/17 02:22 05/04/17 06:28 Bedside Glucose 133 97 118 Medications Medications Current Medications Enoxaparin Sodium (Lovenox) 30 mg DAILY SC Last administered on 05/04/17 09:08 ; Admin Dose 30 MG; Start 04/26/17 at 16:00 Lorazepam (Ativan) 0.5 mg Q8H PRN PO ANXIETY Last administered on 04/29/17 12: 26; Admin Dose 0.5 MG; Start 04/26/17 at 21:00 Zolpidem Tartrate (Ambien) 5 mg HS PRN PO INSOMNIA Last administered on 23:21; Admin Dose 5 MG; Start 04/27/17 at 03:00 Acetaminophen (Tylenol Tab) 650 mg Q4H PRN PO PAIN AND OR ELEVATED TEMP Last administered on 04/30/17 08:45; Admin Dose 650 MG; Start 04/27/17 at 08:30 Ondansetron HCl (Zofran Inj) 4 mg Q6H PRN IV NAUSEA AND/OR VOMITING Last administered on 04/28/17 09:07; Admin Dose 4 MG; Start 04/27/17 at 13:30 Bisacodyl (Dulcolax Supp) 10 mg DAILY PRN [place] PRN Last administered on 05:07; Admin Dose 10 MG; Start 04/28/17 at 05:00 Senna 5 ml 5 ml BID PO Last administered on 05/03/17 20:52; Admin Dose 5 ML; Start 04/28/17 at 21:00 Cefepime HCl (Maxipime 1gm/50 ml (Pmx)) 50 ml @ 100 mls/hr Q24H IVPB Last administered on 05/03/17 17:32; Admin Dose 100 MLS/HR; Start 04/28/17 at 16:15 Polyethylene Glycol (Miralax) 17 gm BID PO Last administered on 05/03/17 08:52 ; Admin Dose 17 GM; Start 04/28/17 at 21:00 Morphine Sulfate (morphine) 2 mg Q4H PRN IV PAIN Last administered on 02:49; Admin Dose 2 MG; Start 04/29/17 at 03:00 Acetaminophen/ Hydrocodone Bitart 1 tab 1 tab Q6H PRN PO PAIN; Start 04/29/17 at 03:00 Dextrose/Sodium Chloride (D5-1/2ns) 1,000 ml @ 40 mls/hr Q24H IV Last administered on 05/03/17 11:31; Admin Dose 40 MLS/HR; Start 04/29/17 at 10:30 Ascorbic Acid (Vitamin C) 500 mg DAILY PO Last administered on 05/03/17 08:52 ; Admin Dose 500 MG; Start 04/30/17 at 09:00 Folic Acid (Folic Acid) 1 mg DAILY PO Last administered on 05/03/17 08:54; Admin Dose 1 MG; Start 04/30/17 at 09:00 Multivitamins Therapeutic (Theragran) 1 tab DAILY PO Last administered on 08:52; Admin Dose 1 TAB; Start 04/30/17 at 09:00 Acetaminophen (Tylenol Supp) 650 mg Q4H PRN [place] PAIN OR TEMP ABOVE 38C Last administered on 04/30/17 14:34; Admin Dose 650 MG; Start 04/29/17 at 20:30 Diagnostic Test (Pha) (Accu-Chek) 1 ea Q6 XX ; Start 04/29/17 at 20:30 Diagnostic Test (Pha) (Accu-Chek) 1 ea 02 XX ; Start 04/30/17 at 02:00 Insulin Aspart (Novolog Insulin Pen) NOVOLOG *MODERATE* ALGORI... Q6 SC Last administered on 05/03/17 11:38; Admin Dose 1 UNIT; Start 04/29/17 at 20:30 Miscellaneous Information 1 ea NOTE XX ; Start 04/29/17 at 20:30 Glucose (Glutose) 15 gm Q15M PRN PO DECREASED GLUCOSE; Start 04/29/17 at 20:30 Glucose (Glutose) 22.5 gm Q15M PRN PO DECREASED GLUCOSE; Start 04/29/17 at 20: 30 Dextrose (D50w Syringe) 25 ml Q15M PRN IV DECREASED GLUCOSE Last administered on 05/04/17 01:04; Admin Dose 25 ML; Start 04/29/17 at 20:30 Dextrose (D50w Syringe) 50 ml Q15M PRN IV DECREASED GLUCOSE Last administered on 05/03/17 06:12; Admin Dose 50 ML; Start 04/29/17 at 20:30 Glucagon (Glucagen) 1 mg Q15M PRN IM DECREASED GLUCOSE; Start 04/29/17 at 20:30 Glucose 15 gm 15 gm Q15M PRN BUCCAL DECREASED GLUCOSE; Start 04/29/17 at 20:30 Vancomycin HCl/ Sodium Chloride (Vancocin/NS) 150 ml @ 75 mls/hr Q24H IVPB Last administered on 05/03/17 15:21; Admin Dose 75 MLS/HR; Start 05/01/17 at 15 :00 Famotidine (Pepcid) 20 mg DAILY PO Last administered on 05/04/17 09:04; Admin Dose 20 MG; Start 05/01/17 at 09:00 Hydralazine HCl (Apresoline) 5 mg Q6H PRN IV SBP>160 Last administered on 12:15; Admin Dose 5 MG; Start 05/01/17 at 10:00 Lisinopril (Zestril) 5 mg BID PO Last administered on 05/04/17 09:04; Admin Dose 5 MG; Start 05/01/17 at 12:30 Metoprolol Tartrate (Lopressor) 50 mg BID PO Last administered on 05/04/17 09: 03; Admin Dose 50 MG; Start 05/02/17 at 21:00 Miscellaneous Information (*Rx Drug Level Order Reminder*) VANCOMYCIN TROUGH AT 1400 ONCE ONCE XX ; Start 05/04/17 at 14:00; Stop 05/04/17 at 14:01 CHRISTIAN GAMEZ May 04, 2017 11:26
--- NOTE | 2017-05-04 15:33 | CONS ---
Date/Time of Note Date/Time of Note DATE: 05/04/17 TIME: 15:31 Assessment/Plan Assessment/Plan Chief Complaint/Hosp Course SUBJECTIVE: No acute changes, more awake, looks comfortable, no fevers. MICROBIOLOGY: Blood cultures remain negative. Sputum culture negative. Aspirated pleural fluid cultures negative as well. ANTIMICROBIALS: Vancomycin and cefepime. PHYSICAL EXAMINATION: GENERAL: This is a fragile, chronically ill-appearing, elderly woman, who is lethargic and in no distress. HEENT: Head atraumatic, normocephalic. Sclerae anicteric. Buccal mucosa dry. NECK: Supple. CHEST: Rise symmetrical. Breath sounds diminished at the bases. HEART: S1, S2. ABDOMEN: Soft. Bowel sounds present. EXTREMITIES: With trace edema. ASSESSMENT: 1. Resolving sepsis with fevers and leukocytosis, possibly 2 to aspiration. 2. Exudative pleural effusions, status post thoracentesis on 04/27, so far fluid cultures being negative. 3. Chronic encephalopathy. 4. Dysphagia. 5. Diabetes and hypertension. PLAN: Overall improving, continue abx, aspiration precautions DW staff Problems: Consultation Date/Type/Reason Admit Date/Time Apr 26, 2017 at 13:44 Initial Consult Date 04/28/17 Type of Consultation: id Referring Provider: TYRONE TEMPLE MD Exam/Review of Systems Vital Signs Vitals Vital Signs Date Time Temp Pulse Resp B/P Pulse Ox O2 Delivery O2 Flow Rate FiO2 05/04/17 15:25 98.6 88 18 171/81 96 05/04/17 10:11 Nasal Cannula 2.0 Intake and Output 05/03/17 05/03/17 05/04/17 15:00 23:00 07:00 Intake Total 265 ml 450 ml 485 ml Balance 265 ml 450 ml 485 ml Results Result Diagram: 05/03/17 0547 05/03/17 0547 Results 24 hrs Laboratory Tests Test 05/03/17 17:50 05/03/17 20:35 05/04/17 00:55 05/04/17 01:25 Bedside Glucose 98 145 51 L 133 Test 05/04/17 02:22 05/04/17 06:28 05/04/17 11:46 05/04/17 14:09 Bedside Glucose 97 118 162 Vancomycin Level Trough 9.7 L Medications Medications Current Medications Enoxaparin Sodium (Lovenox) 30 mg DAILY SC Last administered on 05/04/17 09:08 ; Admin Dose 30 MG; Start 04/26/17 at 16:00 Lorazepam (Ativan) 0.5 mg Q8H PRN PO ANXIETY Last administered on 04/29/17 12: 26; Admin Dose 0.5 MG; Start 04/26/17 at 21:00 Zolpidem Tartrate (Ambien) 5 mg HS PRN PO INSOMNIA Last administered on 23:21; Admin Dose 5 MG; Start 04/27/17 at 03:00 Acetaminophen (Tylenol Tab) 650 mg Q4H PRN PO PAIN AND OR ELEVATED TEMP Last administered on 04/30/17 08:45; Admin Dose 650 MG; Start 04/27/17 at 08:30 Ondansetron HCl (Zofran Inj) 4 mg Q6H PRN IV NAUSEA AND/OR VOMITING Last administered on 04/28/17 09:07; Admin Dose 4 MG; Start 04/27/17 at 13:30 Bisacodyl (Dulcolax Supp) 10 mg DAILY PRN [place] PRN Last administered on 05:07; Admin Dose 10 MG; Start 04/28/17 at 05:00 Senna 5 ml 5 ml BID PO Last administered on 05/03/17 20:52; Admin Dose 5 ML; Start 04/28/17 at 21:00 Cefepime HCl (Maxipime 1gm/50 ml (Pmx)) 50 ml @ 100 mls/hr Q24H IVPB Last administered on 05/03/17 17:32; Admin Dose 100 MLS/HR; Start 04/28/17 at 16:15 Polyethylene Glycol (Miralax) 17 gm BID PO Last administered on 05/03/17 08:52 ; Admin Dose 17 GM; Start 04/28/17 at 21:00 Morphine Sulfate (morphine) 2 mg Q4H PRN IV PAIN Last administered on 02:49; Admin Dose 2 MG; Start 04/29/17 at 03:00 Acetaminophen/ Hydrocodone Bitart 1 tab 1 tab Q6H PRN PO PAIN; Start 04/29/17 at 03:00 Dextrose/Sodium Chloride (D5-1/2ns) 1,000 ml @ 40 mls/hr Q24H IV Last administered on 05/03/17 11:31; Admin Dose 40 MLS/HR; Start 04/29/17 at 10:30 Ascorbic Acid (Vitamin C) 500 mg DAILY PO Last administered on 05/03/17 08:52 ; Admin Dose 500 MG; Start 04/30/17 at 09:00 Folic Acid (Folic Acid) 1 mg DAILY PO Last administered on 05/03/17 08:54; Admin Dose 1 MG; Start 04/30/17 at 09:00 Multivitamins Therapeutic (Theragran) 1 tab DAILY PO Last administered on 08:52; Admin Dose 1 TAB; Start 04/30/17 at 09:00 Acetaminophen (Tylenol Supp) 650 mg Q4H PRN [place] PAIN OR TEMP ABOVE 38C Last administered on 04/30/17 14:34; Admin Dose 650 MG; Start 04/29/17 at 20:30 Diagnostic Test (Pha) (Accu-Chek) 1 ea Q6 XX ; Start 04/29/17 at 20:30 Diagnostic Test (Pha) (Accu-Chek) 1 ea 02 XX ; Start 04/30/17 at 02:00 Insulin Aspart (Novolog Insulin Pen) NOVOLOG *MODERATE* ALGORI... Q6 SC Last administered on 05/04/17 11:55; Admin Dose 2 UNIT; Start 04/29/17 at 20:30 Miscellaneous Information 1 ea NOTE XX ; Start 04/29/17 at 20:30 Glucose (Glutose) 15 gm Q15M PRN PO DECREASED GLUCOSE; Start 04/29/17 at 20:30 Glucose (Glutose) 22.5 gm Q15M PRN PO DECREASED GLUCOSE; Start 04/29/17 at 20: 30 Dextrose (D50w Syringe) 25 ml Q15M PRN IV DECREASED GLUCOSE Last administered on 05/04/17 01:04; Admin Dose 25 ML; Start 04/29/17 at 20:30 Dextrose (D50w Syringe) 50 ml Q15M PRN IV DECREASED GLUCOSE Last administered on 05/03/17 06:12; Admin Dose 50 ML; Start 04/29/17 at 20:30 Glucagon (Glucagen) 1 mg Q15M PRN IM DECREASED GLUCOSE; Start 04/29/17 at 20:30 Glucose 15 gm 15 gm Q15M PRN BUCCAL DECREASED GLUCOSE; Start 04/29/17 at 20:30 Vancomycin HCl/ Sodium Chloride (Vancocin/NS) 150 ml @ 75 mls/hr Q24H IVPB Last administered on 05/03/17 15:21; Admin Dose 75 MLS/HR; Start 05/01/17 at 15 :00; Stop 05/04/17 at 21:00 Famotidine (Pepcid) 20 mg DAILY PO Last administered on 05/04/17 09:04; Admin Dose 20 MG; Start 05/01/17 at 09:00 Hydralazine HCl (Apresoline) 5 mg Q6H PRN IV SBP>160 Last administered on 12:15; Admin Dose 5 MG; Start 05/01/17 at 10:00 Lisinopril (Zestril) 5 mg BID PO Last administered on 05/04/17 09:04; Admin Dose 5 MG; Start 05/01/17 at 12:30 Metoprolol Tartrate 50 mg 50 mg BID PO Last administered on 05/04/17 09:03; Admin Dose 50 MG; Start 05/02/17 at 21:00 Vancomycin HCl/ Sodium Chloride (Vancocin/NS) 100 ml @ 100 mls/hr Q12H IVPB ; Start 05/05/17 at 06:00 ANTONI MATHEWS NP May 04, 2017 15:33
[2017-05-04] MEDS: VANCOMYCIN 750 MG in SOD CHLORIDE 0.9% 150 ML IVPB SCH (16:03)
[2017-05-04] MEDS: CEFEPIME 1GM/50 ML (PMX) 50 ML IVPB SCH (16:30)
--- NOTE | 2017-05-04 17:08 | RADRPT ---
PROCEDURE: XR Chest. CLINICAL INDICATION: Shortness of breath. TECHNIQUE: Single frontal view. COMPARISON: 04/30/2017. FINDINGS: The lungs are clear. The heart is enlarged. There is calcification in the aorta consistent with atherosclerosis. There is diffuse osteopenia. There is no pleural effusion. There is no pneumothorax. IMPRESSION: 1. Clear lungs. 2. Cardiomegaly and atherosclerosis. 3. Diffuse osteopenia. RPTAT: QQ .Lance Lance MD, MD Date Time Electronically viewed and signed by .Lance Lance MD, MD on 05/04/2017 17:08 .R/
--- NOTE | 2017-05-04 18:48 | PN ---
Date/Time of Note Date/Time of Note DATE: 05/04/17 TIME: 18:46 Assessment/Plan VTE Prophylaxis VTE Prophylaxis Intervention: LMWH Lines/Catheters IV [facility]ter Type (from [facility]): Saline Lock Urinary Cath still in place: No Assessment/Plan Chief Complaint/Hosp Course This is an 87-year-old female with unclear medical history but reported hypertension and diabetes who presents with a week history of worsening lethargy , abdominal pain and low p.o. intake. Her exam is notable for profound tremors suggestive of Parkinson's disease. Her echocardiogram shows elevated right- sided pressures and severe pulmonary hypertension. 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 Anemia: - Unclear etiology, send iron studies and retics for now PPx LMWH DNRP [facility] transfer to home hospice Problems: Subjective 24 Hr Interval Summary Free Text/Dictation Patient's family declined PEG tube Requesting home hospice referral, [facility] contacted Exam/Review of Systems Vital Signs Vitals Vital Signs Date Time Temp Pulse Resp B/P Pulse Ox O2 Delivery O2 Flow Rate FiO2 05/04/17 16:03 83 05/04/17 15:25 98.6 18 171/81 96 05/04/17 10:11 Nasal Cannula 2.0 Intake and Output 05/03/17 05/03/17 05/04/17 14:59 22:59 06:59 Intake Total 265 ml 450 ml 485 ml Balance 265 ml 450 ml 485 ml Results Result Diagram: 05/03/17 0547 05/03/17 0547 Results 24 hrs Laboratory Tests Test 05/03/17 20:35 05/04/17 00:55 05/04/17 01:25 05/04/17 02:22 Bedside Glucose 145 51 L 133 97 Test 05/04/17 06:28 05/04/17 11:46 05/04/17 14:09 05/04/17 17:44 Bedside Glucose 118 162 219 Vancomycin Level Trough 9.7 L Medications Medications Current Medications Enoxaparin Sodium (Lovenox) 30 mg DAILY SC Last administered on 05/04/17 09:08 ; Admin Dose 30 MG; Start 04/26/17 at 16:00 Lorazepam (Ativan) 0.5 mg Q8H PRN PO ANXIETY Last administered on 04/29/17 12: 26; Admin Dose 0.5 MG; Start 04/26/17 at 21:00 Zolpidem Tartrate (Ambien) 5 mg HS PRN PO INSOMNIA Last administered on 23:21; Admin Dose 5 MG; Start 04/27/17 at 03:00 Acetaminophen (Tylenol Tab) 650 mg Q4H PRN PO PAIN AND OR ELEVATED TEMP Last administered on 04/30/17 08:45; Admin Dose 650 MG; Start 04/27/17 at 08:30 Ondansetron HCl (Zofran Inj) 4 mg Q6H PRN IV NAUSEA AND/OR VOMITING Last administered on 04/28/17 09:07; Admin Dose 4 MG; Start 04/27/17 at 13:30 Bisacodyl (Dulcolax Supp) 10 mg DAILY PRN [place] PRN Last administered on 05:07; Admin Dose 10 MG; Start 04/28/17 at 05:00 Senna 5 ml 5 ml BID PO Last administered on 05/03/17 20:52; Admin Dose 5 ML; Start 04/28/17 at 21:00 Cefepime HCl (Maxipime 1gm/50 ml (Pmx)) 50 ml @ 100 mls/hr Q24H IVPB Last administered on 05/04/17 16:30; Admin Dose 100 MLS/HR; Start 04/28/17 at 16:15 Polyethylene Glycol (Miralax) 17 gm BID PO Last administered on 05/03/17 08:52 ; Admin Dose 17 GM; Start 04/28/17 at 21:00 Morphine Sulfate (morphine) 2 mg Q4H PRN IV PAIN Last administered on 02:49; Admin Dose 2 MG; Start 04/29/17 at 03:00 Acetaminophen/ Hydrocodone Bitart 1 tab 1 tab Q6H PRN PO PAIN; Start 04/29/17 at 03:00 Dextrose/Sodium Chloride (D5-1/2ns) 1,000 ml @ 40 mls/hr Q24H IV Last administered on 05/04/17 18:01; Admin Dose 40 MLS/HR; Start 04/29/17 at 10:30 Ascorbic Acid (Vitamin C) 500 mg DAILY PO Last administered on 05/03/17 08:52 ; Admin Dose 500 MG; Start 04/30/17 at 09:00 Folic Acid (Folic Acid) 1 mg DAILY PO Last administered on 05/03/17 08:54; Admin Dose 1 MG; Start 04/30/17 at 09:00 Multivitamins Therapeutic (Theragran) 1 tab DAILY PO Last administered on 08:52; Admin Dose 1 TAB; Start 04/30/17 at 09:00 Acetaminophen (Tylenol Supp) 650 mg Q4H PRN [place] PAIN OR TEMP ABOVE 38C Last administered on 04/30/17 14:34; Admin Dose 650 MG; Start 04/29/17 at 20:30 Diagnostic Test (Pha) (Accu-Chek) 1 ea Q6 XX Last administered on 05/04/17 18: 00; Admin Dose 1 EA; Start 04/29/17 at 20:30 Diagnostic Test (Pha) (Accu-Chek) 1 ea 02 XX ; Start 04/30/17 at 02:00 Insulin Aspart (Novolog Insulin Pen) NOVOLOG *MODERATE* ALGORI... Q6 SC Last administered on 05/04/17 17:53; Admin Dose 4 UNIT; Start 04/29/17 at 20:30 Miscellaneous Information 1 ea NOTE XX ; Start 04/29/17 at 20:30 Glucose (Glutose) 15 gm Q15M PRN PO DECREASED GLUCOSE; Start 04/29/17 at 20:30 Glucose (Glutose) 22.5 gm Q15M PRN PO DECREASED GLUCOSE; Start 04/29/17 at 20: 30 Dextrose (D50w Syringe) 25 ml Q15M PRN IV DECREASED GLUCOSE Last administered on 05/04/17 01:04; Admin Dose 25 ML; Start 04/29/17 at 20:30 Dextrose (D50w Syringe) 50 ml Q15M PRN IV DECREASED GLUCOSE Last administered on 05/03/17 06:12; Admin Dose 50 ML; Start 04/29/17 at 20:30 Glucagon (Glucagen) 1 mg Q15M PRN IM DECREASED GLUCOSE; Start 04/29/17 at 20:30 Glucose 15 gm 15 gm Q15M PRN BUCCAL DECREASED GLUCOSE; Start 04/29/17 at 20:30 Vancomycin HCl/ Sodium Chloride (Vancocin/NS) 150 ml @ 75 mls/hr Q24H IVPB Last administered on 05/04/17 16:03; Admin Dose 75 MLS/HR; Start 05/01/17 at 15 :00; Stop 05/04/17 at 21:00 Famotidine (Pepcid) 20 mg DAILY PO Last administered on 05/04/17 09:04; Admin Dose 20 MG; Start 05/01/17 at 09:00 Hydralazine HCl (Apresoline) 5 mg Q6H PRN IV SBP>160 Last administered on 12:15; Admin Dose 5 MG; Start 05/01/17 at 10:00 Lisinopril (Zestril) 5 mg BID PO Last administered on 05/04/17 09:04; Admin Dose 5 MG; Start 05/01/17 at 12:30 Metoprolol Tartrate 50 mg 50 mg BID PO Last administered on 05/04/17 09:03; Admin Dose 50 MG; Start 05/02/17 at 21:00 Vancomycin HCl/ Sodium Chloride (Vancocin/NS) 100 ml @ 100 mls/hr Q12H IVPB ; Start 05/05/17 at 06:00 HAMZAH NAZARIO MD May 04, 2017 18:48
[2017-05-05] VITALS (8 sets, daily range): BP systolic 108–140; BP diastolic 54–87; PULSE 67–96; RESP 16–20
[2017-05-05] MEDS: INSULIN ASPART [NOVOLOG] 3 ML PEN SC SCH ×3 (01:32→12:09)
[2017-05-05] MEDS: ACCU-CHEK XX SCH ×4 (02:00→12:00)
[2017-05-05] MEDS ORDERED: VANCOMYCIN 400 MG in SOD CHLORIDE 0.9% 100 ML IVPB SCH (06:00)
--- NOTE | 2017-05-05 08:18 | PN ---
Date/Time of Note Date/Time of Note DATE: 05/05/17 TIME: 08:17 Assessment/Plan VTE Prophylaxis VTE Prophylaxis Intervention: SCD's Lines/Catheters IV C[facility]ter Type (from [facility]): Saline Lock Urinary Cath still in place: No Assessment/Plan Assessment/Plan Possible atrial flutter versus artifact, currently sinus rhythm Preserved ejection fraction Pulmonary hypertension Tricuspid and mitral valve regurgitation Parkinson's Failure to thrive with dysphagia Hypertension Pleural effusion status post thoracentesis -On review of telemetry, patient with significant artifact secondary to Parkinson's. On "die cleaner" strips, patient currently in sinus rhythm. At the current time patient remains in sinus rhythm. Continue beta-jesus. the risk is anticoagulation likely outweigh the benefits at the current time. Would continue beta-jesus, maintain potassium above 4.0 and magnesium above 2.0 to decrease the risk of arrhythmias. Would start CESARIO inhibitor if no contraindication for assistance with blood pressure control. Subjective 24 Hr Interval Summary Free Text/Dictation The patient with no cahge Exam/Review of Systems Vital Signs Vitals Vital Signs Date Time Temp Pulse Resp B/P Pulse Ox O2 Delivery O2 Flow Rate FiO2 05/05/17 08:03 82 05/05/17 07:23 99.0 18 108/54 98 05/04/17 21:00 Nasal Cannula 2.0 Intake and Output 05/04/17 05/04/17 05/05/17 15:00 23:00 07:00 Intake Total 500 ml 10 ml Balance 500 ml 10 ml Results Result Diagram: 05/03/17 0547 05/03/17 0547 Results 24 hrs Laboratory Tests Test 05/04/17 11:46 05/04/17 14:09 05/04/17 17:44 05/04/17 21:15 Bedside Glucose 162 219 206 Vancomycin Level Trough 9.7 L Test 05/05/17 01:08 05/05/17 06:07 Bedside Glucose 211 209 Medications Medications Current Medications Enoxaparin Sodium (Lovenox) 30 mg DAILY SC Last administered on 05/04/17 09:08 ; Admin Dose 30 MG; Start 04/26/17 at 16:00 Lorazepam (Ativan) 0.5 mg Q8H PRN PO ANXIETY Last administered on 04/29/17 12: 26; Admin Dose 0.5 MG; Start 04/26/17 at 21:00 Zolpidem Tartrate (Ambien) 5 mg HS PRN PO INSOMNIA Last administered on 23:21; Admin Dose 5 MG; Start 04/27/17 at 03:00 Acetaminophen (Tylenol Tab) 650 mg Q4H PRN PO PAIN AND OR ELEVATED TEMP Last administered on 04/30/17 08:45; Admin Dose 650 MG; Start 04/27/17 at 08:30 Ondansetron HCl (Zofran Inj) 4 mg Q6H PRN IV NAUSEA AND/OR VOMITING Last administered on 04/28/17 09:07; Admin Dose 4 MG; Start 04/27/17 at 13:30 Bisacodyl (Dulcolax Supp) 10 mg DAILY PRN [place] PRN Last administered on 05:07; Admin Dose 10 MG; Start 04/28/17 at 05:00 Senna 5 ml 5 ml BID PO Last administered on 05/04/17 21:21; Admin Dose 5 ML; Start 04/28/17 at 21:00 Cefepime HCl (Maxipime 1gm/50 ml (Pmx)) 50 ml @ 100 mls/hr Q24H IVPB Last administered on 05/04/17 16:30; Admin Dose 100 MLS/HR; Start 04/28/17 at 16:15 Polyethylene Glycol (Miralax) 17 gm BID PO Last administered on 05/03/17 08:52 ; Admin Dose 17 GM; Start 04/28/17 at 21:00 Morphine Sulfate (morphine) 2 mg Q4H PRN IV PAIN Last administered on 02:49; Admin Dose 2 MG; Start 04/29/17 at 03:00 Acetaminophen/ Hydrocodone Bitart 1 tab 1 tab Q6H PRN PO PAIN; Start 04/29/17 at 03:00 Dextrose/Sodium Chloride (D5-1/2ns) 1,000 ml @ 40 mls/hr Q24H IV Last administered on 05/04/17 18:01; Admin Dose 40 MLS/HR; Start 04/29/17 at 10:30 Ascorbic Acid (Vitamin C) 500 mg DAILY PO Last administered on 05/03/17 08:52 ; Admin Dose 500 MG; Start 04/30/17 at 09:00 Folic Acid (Folic Acid) 1 mg DAILY PO Last administered on 05/03/17 08:54; Admin Dose 1 MG; Start 04/30/17 at 09:00 Multivitamins Therapeutic (Theragran) 1 tab DAILY PO Last administered on 08:52; Admin Dose 1 TAB; Start 04/30/17 at 09:00 Acetaminophen (Tylenol Supp) 650 mg Q4H PRN [place] PAIN OR TEMP ABOVE 38C Last administered on 04/30/17 14:34; Admin Dose 650 MG; Start 04/29/17 at 20:30 Diagnostic Test (Pha) (Accu-Chek) 1 ea Q6 XX Last administered on 05/05/17 06: 16; Admin Dose 1 EA; Start 04/29/17 at 20:30 Diagnostic Test (Pha) (Accu-Chek) 1 ea 02 XX ; Start 04/30/17 at 02:00 Insulin Aspart (Novolog Insulin Pen) NOVOLOG *MODERATE* ALGORI... Q6 SC Last administered on 05/05/17 06:15; Admin Dose 4 UNIT; Start 04/29/17 at 20:30 Miscellaneous Information 1 ea NOTE XX ; Start 04/29/17 at 20:30 Glucose (Glutose) 15 gm Q15M PRN PO DECREASED GLUCOSE; Start 04/29/17 at 20:30 Glucose (Glutose) 22.5 gm Q15M PRN PO DECREASED GLUCOSE; Start 04/29/17 at 20: 30 Dextrose (D50w Syringe) 25 ml Q15M PRN IV DECREASED GLUCOSE Last administered on 05/04/17 01:04; Admin Dose 25 ML; Start 04/29/17 at 20:30 Dextrose (D50w Syringe) 50 ml Q15M PRN IV DECREASED GLUCOSE Last administered on 05/03/17 06:12; Admin Dose 50 ML; Start 04/29/17 at 20:30 Glucagon (Glucagen) 1 mg Q15M PRN IM DECREASED GLUCOSE; Start 04/29/17 at 20:30 Glucose (Glutose) 15 gm Q15M PRN BUCCAL DECREASED GLUCOSE; Start 04/29/17 at 20 :30 Hydralazine HCl (Apresoline) 5 mg Q6H PRN IV SBP>160 Last administered on 12:15; Admin Dose 5 MG; Start 05/01/17 at 10:00 Metoprolol Tartrate 50 mg 50 mg BID PO Last administered on 05/04/17 21:20; Admin Dose 50 MG; Start 05/02/17 at 21:00 Vancomycin HCl/ Sodium Chloride (Vancocin/NS) 100 ml @ 100 mls/hr Q12H IVPB Last administered on 05/05/17 06:08; Admin Dose 100 MLS/HR; Start 05/05/17 at 06:00 DOMINIQUE MACK MD May 05, 2017 08:17
[2017-05-05] MEDS ORDERED: INSULIN GLARGINE [LANtus] 3 ML PEN SC SCH (08:30)
[2017-05-05] MEDS: METOPROLOL 50 MG TAB PO SCH (09:00)
[2017-05-05] MEDS: POLYETHYLENE GLYCOL 17 GM PACKET PO SCH (09:00)
[2017-05-05] MEDS: MULTIVITAMINS THERAPEUTIC TAB PO SCH (09:05)
[2017-05-05] MEDS: ASCORBIC ACID 500 MG TAB PO SCH (09:05)
[2017-05-05] MEDS: SENNA (PO SYG) PO SCH (09:06)
[2017-05-05] MEDS: FOLIC ACID 1 MG TAB PO SCH (09:06)
[2017-05-05] MEDS: ENOXAPARIN 30 MG/0.3 ML SYG SC SCH (09:08)
[2017-05-05] MEDS ORDERED: LEVODOPA PO (12:30)
[2017-05-05] MEDS ORDERED: CARBIDOPA PO (12:30)
--- NOTE | 2017-05-05 15:14 | CONS ---
Date/Time of Note Date/Time of Note DATE: 05/05/17 TIME: 15:12 Assessment/Plan Assessment/Plan Chief Complaint/Hosp Course SUBJECTIVE: No acute changes, looks comfortable, no fevers. MICROBIOLOGY: Blood cultures remain negative. Sputum culture negative. Aspirated pleural fluid cultures negative as well. ANTIMICROBIALS: Vancomycin and cefepime #8 PHYSICAL EXAMINATION: GENERAL: This is a fragile, chronically ill-appearing, elderly woman, who is lethargic and in no distress. HEENT: Head atraumatic, normocephalic. Sclerae anicteric. Buccal mucosa dry. NECK: Supple. CHEST: Rise symmetrical. Breath sounds diminished at the bases. HEART: S1, S2. ABDOMEN: Soft. Bowel sounds present. EXTREMITIES: With trace edema. ASSESSMENT: 1. Resolving sepsis with fevers and leukocytosis, possibly 2 to aspiration. 2. Exudative pleural effusions, status post thoracentesis on 04/27, so far fluid cultures being negative. 3. Chronic encephalopathy. 4. Dysphagia. 5. Diabetes and hypertension. PLAN: Remains stable, continue abx for more days, continue aspiration precautions [facility] staff Problems: Consultation Date/Type/Reason Admit Date/Time Apr 26, 2017 at 13:44 Initial Consult Date 04/28/17 Type of Consultation: id Referring Provider: TYRONE TEMPLE MD Exam/Review of Systems Vital Signs Vitals Vital Signs Date Time Temp Pulse Resp B/P Pulse Ox O2 Delivery O2 Flow Rate FiO2 05/05/17 12:06 96 05/05/17 11:14 98.9 16 133/87 93 05/05/17 08:00 Nasal Cannula 2.0 Intake and Output 05/04/17 05/04/17 05/05/17 15:00 23:00 07:00 Intake Total 500 ml 10 ml Balance 500 ml 10 ml Results Result Diagram: 05/03/17 0547 05/03/17 0547 Results 24 hrs Laboratory Tests Test 05/04/17 17:44 05/04/17 21:15 05/05/17 01:08 05/05/17 06:07 Bedside Glucose 219 206 211 209 Test 05/05/17 09:04 05/05/17 12:00 Bedside Glucose 209 218 Medications Medications Current Medications Enoxaparin Sodium (Lovenox) 30 mg DAILY SC Last administered on 05/05/17t 09:08 ; Admin Dose 30 MG; Start 04/26/17 at 16:00 Lorazepam (Ativan) 0.5 mg Q8H PRN PO ANXIETY Last administered on 04/29/17 12: 26; Admin Dose 0.5 MG; Start 04/26/17 at 21:00 Zolpidem Tartrate (Ambien) 5 mg HS PRN PO INSOMNIA Last administered on 23:21; Admin Dose 5 MG; Start 04/27/17 at 03:00 Acetaminophen (Tylenol Tab) 650 mg Q4H PRN PO PAIN AND OR ELEVATED TEMP Last administered on 04/30/17 08:45; Admin Dose 650 MG; Start 04/27/17 at 08:30 Ondansetron HCl (Zofran Inj) 4 mg Q6H PRN IV NAUSEA AND/OR VOMITING Last administered on 04/28/17 09:07; Admin Dose 4 MG; Start 04/27/17 at 13:30 Bisacodyl (Dulcolax Supp) 10 mg DAILY PRN OR PRN Last administered on 05:07; Admin Dose 10 MG; Start 04/28/17 at 05:00 Senna 5 ml 5 ml BID PO Last administered on 05/05/17 09:06; Admin Dose 5 ML; Start 04/28/17 at 21:00 Cefepime HCl (Maxipime 1gm/50 ml (Pmx)) 50 ml @ 100 mls/hr Q24H IVPB Last administered on 05/04/17 16:30; Admin Dose 100 MLS/HR; Start 04/28/17 at 16:15 Polyethylene Glycol (Miralax) 17 gm BID PO Last administered on 05/03/17 08:52 ; Admin Dose 17 GM; Start 04/28/17 at 21:00 Morphine Sulfate (morphine) 2 mg Q4H PRN IV PAIN Last administered on 02:49; Admin Dose 2 MG; Start 04/29/17 at 03:00 Acetaminophen/ Hydrocodone Bitart 1 tab 1 tab Q6H PRN PO PAIN; Start 04/29/17 at 03:00 Dextrose/Sodium Chloride (D5-1/2ns) 1,000 ml @ 40 mls/hr Q24H IV Last administered on 05/04/17 18:01; Admin Dose 40 MLS/HR; Start 04/29/17 at 10:30 Ascorbic Acid (Vitamin C) 500 mg DAILY PO Last administered on 05/05/17 09:05 ; Admin Dose 500 MG; Start 04/30/17 at 09:00 Folic Acid (Folic Acid) 1 mg DAILY PO Last administered on 05/05/17 09:06; Admin Dose 1 MG; Start 04/30/17 at 09:00 Multivitamins Therapeutic (Theragran) 1 tab DAILY PO Last administered on 09:05; Admin Dose 1 TAB; Start 04/30/17 at 09:00 Acetaminophen (Tylenol Supp) 650 mg Q4H PRN OR PAIN OR TEMP ABOVE 38C Last administered on 04/30/17 14:34; Admin Dose 650 MG; Start 04/29/17 at 20:30 Diagnostic Test (Pha) (Accu-Chek) 1 ea Q6 XX Last administered on 05/05/17 06: 16; Admin Dose 1 EA; Start 04/29/17 at 20:30 Diagnostic Test (Pha) (Accu-Chek) 1 ea 02 XX ; Start 04/30/17 at 02:00 Insulin Aspart (Novolog Insulin Pen) NOVOLOG *MODERATE* ALGORI... Q6 SC Last administered on 05/05/17 12:09; Admin Dose 4 UNIT; Start 04/29/17 at 20:30 Miscellaneous Information 1 ea NOTE XX ; Start 04/29/17 at 20:30 Glucose (Glutose) 15 gm Q15M PRN PO DECREASED GLUCOSE; Start 04/29/17 at 20:30 Glucose (Glutose) 22.5 gm Q15M PRN PO DECREASED GLUCOSE; Start 04/29/17 at 20: 30 Dextrose (D50w Syringe) 25 ml Q15M PRN IV DECREASED GLUCOSE Last administered on 05/04/17 01:04; Admin Dose 25 ML; Start 04/29/17 at 20:30 Dextrose (D50w Syringe) 50 ml Q15M PRN IV DECREASED GLUCOSE Last administered on 05/03/17 06:12; Admin Dose 50 ML; Start 04/29/17 at 20:30 Glucagon (Glucagen) 1 mg Q15M PRN IM DECREASED GLUCOSE; Start 04/29/17 at 20:30 Glucose (Glutose) 15 gm Q15M PRN BUCCAL DECREASED GLUCOSE; Start 04/29/17 at 20 :30 Hydralazine HCl (Apresoline) 5 mg Q6H PRN IV SBP>160 Last administered on 12:15; Admin Dose 5 MG; Start 05/01/17 at 10:00 Metoprolol Tartrate 50 mg 50 mg BID PO Last administered on 05/04/17 21:20; Admin Dose 50 MG; Start 05/02/17 at 21:00 Vancomycin HCl/ Sodium Chloride (Vancocin/NS) 100 ml @ 100 mls/hr Q12H IVPB Last administered on 05/05/17 06:08; Admin Dose 100 MLS/HR; Start 05/05/17 at 06:00 Insulin Glargine (Lantus) 6 unit DAILY@08 SC Last administered on 05/05/17 09: 09; Admin Dose 6 UNIT; Start 05/05/17 at 08:30 ANTONI MATHEWS NP May 05, 2017 15:14
--- NOTE | 2017-05-05 17:30 | PN ---
DATE: 05/05/2017 SUBJECTIVE DATA: The patient is stable this morning. No new events. No respiratory distress. OBJECTIVE DATA: VITAL SIGNS: Temperature 98, pulse 96, blood pressure 133/87, and O2 sat 96 on 3 L nasal cannula. NECK: Neck is supple. No JVD. No lymphadenopathy. CARDIAC: S1 and S2, no added sounds or murmurs. CHEST: Diminished air entry bilaterally. ABDOMEN: Soft, nontender. No guarding or rebound. EXTREMITIES: No cyanosis, clubbing, 2+ edema noted. NEUROLOGIC: Generalized weakness. LABORATORY AND DIAGNOSTIC DATA: Have not been drawn for several days. IMPRESSION: 1. Hypoxemic respiratory failure likely secondary to alveolar hypoventilation. 2. History of pleural effusion status post thoracentesis. 3. 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 4. Chronic constipation. PLAN: Patient to be discharged home under the care of Hospice, which is entirely appropriate given her advanced age and multiple medical problems. At this point, no further pulmonary intervention is needed. Dictated By: Levi Kirby MD /lexis/valeria /Document#: [id number]
--- NOTE | 2017-05-05 17:32 | DS ---
Date/Time of Note Date/Time of Note DATE: 05/05/17 TIME: 17:30 Discharge Summary Admission/Discharge Info Admit Date/Time Apr 26, 2017 at 13:44 Discharge Date/Time May 05, 2017 at 16:20 Patient Condition: Guarded Hx of Present Illness The patient is an 87-year-old female with a reported history of diabetes and hypertension who presents with a one-week history of lethargy and abdominal pain as well as cough and shortness of breath. The patient appears to have cognitive impairment and is unable to provide history. History was thus obtained from her daughter. Whom she lives with. The patient is wheelchair- bound at baseline but is alert and interactive normally. Her daughter has noticed her becoming less interactive. She says her mother has complained of pain in her upper back. She also complains of being hot all the time. She is also noticed that the patient has had very little appetite over this time. She has also noticed that the patient has had total body shaking from her head to her hands. Hospital Course SUBJECTIVE: No acute changes, looks comfortable, no fevers. MICROBIOLOGY: Blood cultures remain negative. Sputum culture negative. Aspirated pleural fluid cultures negative as well. ANTIMICROBIALS: Vancomycin and cefepime #8 PHYSICAL EXAMINATION: GENERAL: This is a fragile, chronically ill-appearing, elderly woman, who is lethargic and in no distress. HEENT: Head atraumatic, normocephalic. Sclerae anicteric. Buccal mucosa dry. NECK: Supple. CHEST: Rise symmetrical. Breath sounds diminished at the bases. HEART: S1, S2. ABDOMEN: Soft. Bowel sounds present. EXTREMITIES: With trace edema. ASSESSMENT: 1. Resolving sepsis with fevers and leukocytosis, possibly 2 to aspiration. 2. Exudative pleural effusions, status post thoracentesis on 04/27, so far fluid cultures being negative. 3. Chronic encephalopathy. 4. Dysphagia. 5. Diabetes and hypertension. PLAN: Remains stable, continue abx for more days, continue aspiration precautions [facility] staff Patient received abx for pneumonia. Had a thoracentesis which was unremarkable for infection or malginancy. Seen by pulmonary and cardiology as well as neurology. She was diagnosed with Parkinsons disease and dementia. She failed swallow study and was offered PEG tube, however family declined. It was descrbied that the patient is reachign the end of her life and there is not much hope for improvement in her condition. Family thus elected to pursue palliative measure and the patient was sent home with home hospice services. Home Meds Active Scripts [Carbidopa/Levodopa ()] 1 TAB TAB No Conflict Check, 1 TAB PO TID for 90 Days, #180 Prov:HAMZAH NAZARIO MD 05/05/17 Reported Medications Olopatadine* (Pataday*) 0.2% - 2.5 Ml Drops, 1 DROP BOTH EYES DAILY, EA 05/03/17 Primary Care Provider Not On Staff Doctor Time spent on discharge: > 30 minutes Pending Labs Laboratory Tests Test 05/04/17 17:44 05/04/17 21:15 05/05/17 01:08 05/05/17 06:07 Bedside Glucose 219mg/dL (70-220) 206mg/dL (70-220) 211mg/dL (70-220) 209mg/dL (70-220) Test 05/05/17 09:04 05/05/17 12:00 Bedside Glucose 209mg/dL (70-220) 218mg/dL (70-220) HAMZAH NAZARIO MD May 05, 2017 17:32
== END 2017-05-05 16:20 | disposition hospice, home (50) | DRG 186 ==
LOC: E/R 09:35 → PP2 13:44 → MS4 04-30 17:36 → TEL 04-30 23:12
PROVIDERS: ADMIT Internal Medicine; ATTEND Internal Medicine
PROC: 0W9B30Z Drainage of Left Pleural Cavity with Drainage Device, Percutaneous Approach (ICD-10-PCS; principal; 2017-04-27)
DX: J90 Pleural effusion, not elsewhere classified (principal); G93.40 Encephalopathy, unspecified; I50.30 Unspecified diastolic (congestive) heart failure; I11.0 Hypertensive heart disease with heart failure; J69.0 Pneumonitis due to inhalation of food and vomit; J96.91 Respiratory failure, unspecified with hypoxia; A41.9 Sepsis, unspecified organism; R64 Cachexia; I74.8 Embolism and thrombosis of other arteries; Z68.1 Body mass index [BMI] 19.9 or less, adult; R13.10 Dysphagia, unspecified; I27.2 Other secondary pulmonary hypertension; G20 Parkinson's disease; F02.80 Dementia in other diseases classified elsewhere, unspecified severity, without behavioral disturbance, psychotic disturbance, mood disturbance, and anxiety; E11.9 Type 2 diabetes mellitus without complications; D64.9 Anemia, unspecified; I72.8 Aneurysm of other specified arteries; K59.00 Constipation, unspecified; E87.6 Hypokalemia; Z74.01 Bed confinement status; Z99.3 Dependence on wheelchair; Z96.651 Presence of right artificial knee joint; I08.1 Rheumatic disorders of both mitral and tricuspid valves; E11.649 Type 2 diabetes mellitus with hypoglycemia without coma; R63.6 Underweight; R11.10 Vomiting, unspecified; R16.2 Hepatomegaly with splenomegaly, not elsewhere classified; R62.7 Adult failure to thrive
CPT/HCPCS: 32555; 36415; 70450; 71010; 71275; 74177; 74230; 76942; 80048; 80053; 80202; 81003; 82728; 82945; 82962; 83540; 83615; 83690; 83735; 83880; 84100; 84157; 84443; 84484; 85025; 85610; 87040; 87070; 87086; 87102; 87116; 89051; 92526; 92610; 92611; 93005; 93306; 96365; 96375; J0360; J0692; J1650; J1815; J1940; J1956; J2270; J2405; J3370; J3475; J3480; J7040; J7042; Q9967